=== PATIENT | female | born 1965 | race Caucasian/White ===

== ENCOUNTER → 2018-02-18 13:10 | Outpatient (CLI) | payer OTHER, SELFPAY ==
--- NOTE | 2018-02-18 13:35 | XR_ITS ---
EXAM: XR lumbar spine min 4V HISTORY: ITS.REASON: RT SI JOINT DYSFUNCTION, LBP ORDERING PHYSICIAN: Lamberto Daly MD PATIENT AGE: 52 years COMPARISON: None FINDINGS: Normal alignment. There is minimal lumbar curvature convex left. Small endplate osteophytes are present at L2-L3 and L4. The disc spaces are well-preserved. There is some minimal hypertrophic change of left SI joint inferiorly. No lytic or blastic change. Incidental note made of bilateral renal calculi with multiple small stones involving both kidneys measuring up to 4 mm upper pole on the right and 3 mm in the lower pole on the left pelvic calcifications are present probably related to phleboliths. IMPRESSION: 1. Mild degenerative changes with small osteophytes of the lumbar spine. 2. Mild degenerative change left SI joint. 3. Bilateral nephrolithiasis
--- NOTE | 2018-02-18 13:41 | XR_ITS ---
XR hip RT 2-3V w/pelvis HISTORY: Pain ITS.REASON: SI JOINT DYSFUNTION, LBP ORDERING PHYSICIAN: Lamberto Daly MD PATIENT AGE: 52 years COMPARISON: None FINDINGS: No fracture or dislocation is evident. No significant degenerative change. No lytic or blastic change. Unremarkable soft tissues IMPRESSION: Negative hip
--- NOTE | 2018-02-18 13:41 | XR_ITS ---
XR hip LT 2-3V w/pelvis HISTORY: Hip pain ITS.REASON: SI JOINT DYSFUNTION, LBP ORDERING PHYSICIAN: Lamberto Daly MD PATIENT AGE: 52 years COMPARISON: None FINDINGS: No fracture or dislocation is evident. No significant degenerative change. No lytic or blastic change. Unremarkable soft tissues IMPRESSION: Negative hip
== END ==
PROVIDERS: PCP Internal Medicine Adolescent Medicine; Visit Provider Internal Medicine Adolescent Medicine
DX: M53.3 Sacrococcygeal disorders, not elsewhere classified (principal); M54.5 Low back pain
CPT/HCPCS: 72110; 73502

== ENCOUNTER 2018-02-19 08:53 | Outpatient (POV) | payer OTHER, SELFPAY ==
[2018-02-19 09:30] VITALS: BP 121/72; PULSE 67; RESP 18; TEMP 37.2; O2SAT 96
--- NOTE | 2018-02-19 10:11 | HMH.PMCON ---
Assessment and Plan (1) Sacroiliitis Current visit: Yes Status: Acute Category: Medical Code(s): M46.1 - Sacroiliitis, not elsewhere classified We will plan on a right SI joint injection today. We will follow-up with her in the pain clinic in 2 weeks. HPI - Data of Consult Patient: new to practice Consult date: 02/19/18 Requesting Physician: Khanh Bueno MD Primary Care Provider: Lamberto Daly MD Family Provider: Lamberto Daly MD - Consult Narrative Reason for consult: Right hip pain History of present illness: Ms. Kirkpatrick is a 52 year old female who had sudden onset of right hip pain when getting out of bed. Has difficulty getting up from a seated position. She also has difficulty sitting for long periods of time. Any movement or activity increases her pain. Rest heat and anti-inflammatories decrease her pain. She has not had any physical therapy. She has had a Medrol Dosepak which helped temporarily. Pain score today is a 2 out of 10. She is tender over her right SI joint. Pain does not radiate anywhere. She has no weakness or numbness or any neurological symptoms down her legs. Pain is constant worse when sitting or getting up from a seated position. CC: Khanh Bueno MD [facility] History I have reviewed the patient's past medical history: Yes Medical History: Reports:: Diabetes Mellitus Type 2, Hypertension Denies:: Cancer, Diabetes Mellitus Type 1, MRSA Other Medical History: Reports: Arthritis Other Surgeries: Yes: BSO, Hysterectomy-Partial Amputation: No Fractures: No - *Social History Alcohol Intake: never Occupational Status: employed - Psychiatric History Expresses thoughts of harming self/others: None Suicide Plan Description: No Plan Review of Systems - Review of Systems Review of systems:: pertinent systems reviewed and negative unless documented below - *Musculoskeletal Reports abnormal walking, Reports joint pain, Reports stiffness Meds Allergies Allergy/AdvReac Type Severity Reaction Status Date / Time lisinopril [LISINOPRIL] Allergy Mild Unverified 09/17/17 15:25 nitrofurantoin Allergy Unknown Unverified 09/17/17 15:25 [From Macrobid] sulfamethoxazole Allergy Unknown Unverified 09/17/17 15:25 [From BACTRIM] trimethoprim [From BACTRIM] Allergy Unknown Unverified 09/17/17 15:25 vancomycin [VANCOMYCIN] Allergy Unknown Unverified 09/17/17 15:25 Objective Vital signs: Temp Pulse Resp BP Pulse Ox 99.0 F 67 18 121/72 96 02/19/18 09:30 02/19/18 09:30 02/19/18 09:30 02/19/18 09:30 02/19/18 09:30 - Routine Back/Spine/Pelvis Exam Back/Spine: Present: full ROM Pelvis: Present: buttock tenderness, SI joint tenderness - *Routine Neurological Exam Present: alert, oriented X3, normal reflexes, moving all extremities, normal tone, normal speech Opioid Risk Tool - Opioid Risk Tool-Female Family hx alcohol abuse: N Family hx illegal drugs: N Family hx rx drug abuse: N Personal hx alcohol abuse: N Personal hx illegal drugs: N Personal hx rx drug abuse: N Age: 45+ Hx of sexual abuse: N Mental health issues-ADD,OCD,Bipolar, etc: N Hx of depression: N Female Risk Score: 0
[2018-02-19 10:15] VITALS: BP 133/83; PULSE 61; RESP 18; O2SAT 99
--- NOTE | 2018-02-19 10:15 | HMH.PMPROC ---
- Procedure Date: 02/19/18 Time: 10:15 Anesthesiologist:: Khanh Bueno MD Complications:: None Pre-procedure Diagnosis:: Sacroiliitis Post-procedure Diagnosis:: Same Indications for Procedure:: Ms. Kirkpatrick is a 52 year old female who had sudden onset of right hip pain when getting out of bed. Has difficulty getting up from a seated position. She also has difficulty sitting for long periods of time. Any movement or activity increases her pain. Rest heat and anti-inflammatories decrease her pain. She has not had any physical therapy. She has had a Medrol Dosepak which helped temporarily. Pain score today is a 2 out of 10. She is tender over her right SI joint. Pain does not radiate anywhere. She has no weakness or numbness or any neurological symptoms down her legs. Pain is constant worse when sitting or getting up from a seated position. We will do a right SI joint injection under fluoroscopy today. Procedure Details:: Right SI joint injection under fluoroscopy Informed consent was obtained and the risks and benefits of the procedure was going to the patient. Patient was taken to the procedure room. Patient was placed prone on the procedure table. The right hip was prepped using ChloraPrep. The skin and subcutaneous tissues were anesthetized using lidocaine. I placed a 22-gauge spinal needle into the inferior aspect of the right SI joint. Needle placement was confirmed with dye. After this we injected 5 mL bupivacaine 0.25% and Depo-Medrol 40 mg into the right SI joint. The patient tolerated the procedure well with no complication. Plan and Disposition:: We will follow-up with her in 2 weeks. We will reevaluate her symptoms at that time.
[2018-02-19 10:16] VITALS: PULSE 63; RESP 18; TEMP 36.6; O2SAT 99
[2018-02-19 13:09] VITALS: BP 141/84; PULSE 62; O2SAT 97
== END 2018-02-19 10:24 | disposition home or self-care (01) ==
LOC: SC.PAIN 08:53
PROVIDERS: Family Provider Internal Medicine Adolescent Medicine; PCP Internal Medicine Adolescent Medicine; Visit Provider Anesthesiology
DX: M46.1 Sacroiliitis, not elsewhere classified (principal)
CPT/HCPCS: 99202; J1040; Q9966

== ENCOUNTER → 2018-05-26 14:54 | Outpatient (POV) | payer OTHER, SELFPAY ==
[2018-05-26 15:12] VITALS: BP 121/67; PULSE 73; RESP 18; O2SAT 98; BMI 35.9
--- NOTE | 2018-05-26 15:27 | P.CONS_ITS ---
[facility] Pain Management SOAP Note Subjective:: Patient is a pleasant 53-year-old white female who presents today for follow-up after her right SI joint injection. Patient had 90-100% relief of her symptoms for 3 months. Patient states her pain is starting to come back intermittently. Patient like to have another SI joint injection to help with her pain coming on. Patient rates her pain today a 3 out of 10. ROS General: no recent weight change, no fever, no sleep disturbances Respiratory: no cough, no shortness of air, no recurring pulmonary infections Cardiovascular/Peripheral Vascular: No chest pain, No palpitations, no edema, no shortness of breath. Gastrointestinal: no incontinence, normal bowel movements reported Genitourinary: no incontinence Musculoskeletal: Right SI joint pain Psychiatric: normal mood/ affect Neurological: [denies weakness in extremities], [denies balance issues] Objective:: Physical Exam General: Alert and oriented x3, no acute distress, pleasant and cooperative, [on room air] Lungs: Resps E/U, Symmetrical chest expansion, Eyes: PERRL Musculoskeletal: Flexion and extension of lumbar spine somewhat guarded secondary to pain, deep tendon reflexes normal, strength in upper and lower extremities [5/5], slightly antalgic gait noted, positive Alisa's test on the right side, extreme point tenderness over right SI joint Neurological: speech clear, 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 Patient's tried and failed these along with physical therapy. Patient is continuing to do home stretching exercise program. I will follow-up with the patient after her injection. This note was dictated using voice recognition software and may contain errors or omissions
== END ==
PROVIDERS: Family Provider Internal Medicine Adolescent Medicine; PCP Internal Medicine Adolescent Medicine; Visit Provider Clinical Nurse Specialist Family Health
DX: M46.1 Sacroiliitis, not elsewhere classified (principal)
CPT/HCPCS: 99213

== ENCOUNTER → 2018-12-31 12:24 | Outpatient (CLI) | payer OTHER, SELFPAY ==
--- NOTE | 2018-12-31 12:31 | CT_ITS ---
CT abdomen pelvis wo con INDICATION: Left groin and left flank pain. Gross hematuria. ITS.REASON: HEMATURIA ORDERING PHYSICIAN: Lamberto Daly MD PATIENT AGE: 53 years TECHNIQUE: No oral nor IV contrast Axial images obtained with sagittal and coronal reformats. All CT scans at the facility use one or more dose reduction, viz: automated exposure control, ma/kV adjustment per patient size (including targeted exams where dose is matched to indication, i.e. head), or iterative reconstruction technique. FINDINGS: Lower thorax. No active disease of the lung bases. Abdomen/pelvis. Lack of oral and IV contrast decreases sensitivity Liver. Diffuse fatty changes no focal lesions of significance of the liver Gallbladder. Gallbladder contracted. Bowel wall thickness may reflect lack of distention no biliary ductal dilatation Pancreas unremarkable. Adrenals unremarkable Kidneys. Bilateral Urolithiasis again noted. Numerous calculi are seen throughout both kidneys-similar to previous study. Right kidney. No obstruction right ureter unremarkable. Numerous calculi at the right kidney most of which slightly larger than on 2016. Left kidney 2.5 cm cyst off the lower pole left kidney similar to previous exam. Scattered calculi throughout left kidney On previous study there are 2 small calculi at the lower pole calyx only one is seen here today suggesting interval passage of 100 calculus here. The left ureter appears normal in caliber. There are numerous phleboliths the pelvic basin which can mimic ureteral calculi However on today's study, suspect possible 4 x 3.5 mm stone at the distal most left ureter just above the left UVJ., seen on axial image 107. I would note a similar calcification was seen in this same level 2016.] At that time was felt to be one of 2 distal ureteral calculi I would expect to see ureteral dilatation of this was indeed a significant distal ureteral stone and thus it is difficult to totally exclude a phlebolith here. . If pain persist, this may require follow-up with postcontrast imaging to delineate course of ureter. Urinary bladder is otherwise unremarkable. Hysterectomy noted. No adnexal masses. GI Tract. Moderate stool within the right colon and transverse colon with minimal stool at left colon. Upper normal wall thickness rectosigmoid most likely reflecting lack of distention. Appendix satisfactory.. Terminal ileum normal. Small bowel unremarkable. Stomach satisfactory. Small fat-containing umbilical hernia. Not significant. Osseous structures. No significant findings. IMPRESSION: ------- 1. Bilateral urolithiasis is again observed. With Slight progression on the right kidney more so than left 2. Numerous phleboliths at the pelvic basin. 3. with left flank pain and hematuria I am suspect of a possible 4 X 3.5 mm stone at the distal most left ureter, just above the left UVJ.... However however we do not the left ureteral dilatation would tend to expect from such. . (Thus difficult to exclude a phlebolith mimicking this appearance) No hydronephrosis on the left currently
== END ==
PROVIDERS: PCP Internal Medicine Adolescent Medicine; Visit Provider Internal Medicine Adolescent Medicine
DX: R31.0 Gross hematuria (principal)
CPT/HCPCS: 74176

== ENCOUNTER → 2019-03-30 10:53 | Outpatient (CLI) | payer OTHER, SELFPAY ==
--- NOTE | 2019-03-30 10:56 | XR_ITS ---
XR chest 2V HISTORY: ITS.REASON: RLL PNEUMONIA ORDERING PHYSICIAN: Rei Vance MD PATIENT AGE: 53 years COMPARISON: 05/09/2009 FINDINGS: The cardiomediastinal silhouette and pulmonary vascularity are within normal limits. The lungs are clear without infiltrates, suspicious nodules, or pleural effusions. No acute bony abnormalities. IMPRESSION: Negative chest, no acute finding
== END ==
PROVIDERS: PCP Internal Medicine Adolescent Medicine; Visit Provider Internal Medicine Adolescent Medicine
DX: J18.1 Lobar pneumonia, unspecified organism (principal)
CPT/HCPCS: 71046

== ENCOUNTER → 2019-09-22 08:08 | Outpatient (CLI) | payer OTHER, SELFPAY ==
--- NOTE | 2019-09-22 08:12 | MM_ITS ---
PROCEDURE: MM DIG SCREENING MAMM BI W/CAD Patient Age:54Y CLINICAL INDICATION: SCREENING. No hormones. No new complaints. Noncontributory family history. COMPARISON: DIGMAMMS MAMMOGRAM SCREEN-NURSE PRIVATE DUTY N/C from 11/26/2007 DIGMAMMDX MAMMOGRAM DX-NURSE PRIVATE DUTY N/C from 05/09/2009 [facility] DIGITAL MAMM-SCREEN BILATERAL from 02/14/2012 TECHNIQUE: Standard CC and MLO images were obtained. R2 CAD reviewed. FINDINGS: Minimal to moderate residual fibroglandular elements but there has been progressive fatty change fatty replacement when compared to the available previous studies. CAD computer review highlights no areas of significant concern either Overall lower density breast With significant fatty change and progressive fatty involution evident over several year sequence/is seen on available series of mammograms. . Right breast no new areas of significant concern. Left breast. No new areas of concern. Stable. Small area of nodularity laterally is been present since 2007, 2008. Can be followed safely IMPRESSION: Stable bilateral mammogram No new areas of concern. Bilateral follow-up 1 year recommended BI-RAD Category: 2 Benign Finding(s) FOLLOW-UP: 1YR 1 Year Follow-up the (A letter has been sent to the patient regarding results of the study.) Dictated by: Kaushal Urias MD 09/24/2019 09:03 Electronically signed by Kaushal Urias MD in [place] 09/24/2019 09:03
== END ==
PROVIDERS: PCP Internal Medicine Adolescent Medicine; Visit Provider Internal Medicine Adolescent Medicine
DX: Z12.31 Encounter for screening mammogram for malignant neoplasm of breast (principal)
CPT/HCPCS: 77067

== ENCOUNTER → 2020-04-21 16:10 | Outpatient (CLI) | payer OTHER, SELFPAY ==
[2020-04-23 13:40] LABS: Covid-19 Nasal PCR Sendout Lex Not Detected
== END ==
PROVIDERS: Visit Provider Internal Medicine Adolescent Medicine
DX: Z20.828 Contact with and (suspected) exposure to other viral communicable diseases (principal)
CPT/HCPCS: U0004

== ENCOUNTER → 2020-12-15 07:15 | Outpatient (CLI) | payer OTHER, SELFPAY ==
--- NOTE | 2020-12-15 | CA_ITS ---
APPROVED REPORT Exam: Exercise Treadmill Technologist: Siobhan Rascon, Ht: 5 ft 1 in Wt: 190 lbs BSA: 1.85 m2 HR: 68 bpm BP: 157/90 mmHg Medical History Medications: Ziac,,,,, Synthroid,,,,, WELLBUTRIN,,,,, CeleBREX,,,,, Stress Test Details Test: Josue HR Resting HR: 74 bpm Max Heart Rate (APMHR): 167.186628 bpm Max HR Achieved: 142 bpm Target HR (85% APMHR): 141.736260 bpm % of APMHR: 85.03 Recovery HR: 86 bpm BP Resting BP: 166/89 mmHg Max BP: 196/88 mmHg Recovery BP: 139.0/80.0 mmHg ECG Resting ECG: NSR, low voltage QRS, slow R wave progression Clinical Exercise duration: 07:01 min Highest Stage Achieved: Exercise capacity: 10.1 METs Stress ECG Conclusion Exercised 7:00 on Josue Protocol Max HR: 142 % of PM: 85% Max BP: 196/88 MET's: 10.1 Test stopped due to: SOA, fatigue Symptoms: No CP Arrhythmias/Ectopy: Rare PVC ST-T Changes: Allowing for motion artifact, the ST response to exercise appears w/in normal. However, there is T wave inversion in leads III and aVF in recovery. Conclusion: Probably normal GXT. [employer] images reported separately. Electronically signed by : Cedrick Andres, 12/15/2020 14:25:48
--- NOTE | 2020-12-15 07:29 | NM_ITS ---
APPROVED REPORT Exam: Nuclear Stress Test Indication: chest pain..short of breath..fatigue Patient Location: Outpatient Stress Tech: Siobhan Rascon [place] Tech:GIANCARLO Zavala RT(R)(N) Ht: 5 ft 1 in Wt: 190 lbs Bra Size: 40d68 HR: 68 bpm BP: 157/90 mmHg BSA: 1.85 m2 BMI: 35.8 History: chest pain..short of breath..fatigue Procedure: Patient exercised on Josue protocol 7 minutes and sec, resting heart rate 68 bpm, resting blood pressure 157/90 mmHg, with exercise maximum heart rate achived was 142 bpm which is 85 % of the maximum predicted heart rate and blood pressure was 196/88 mmHg. Patient denied any complaint of chest pain. Patient has good exercise capacity, achieved 10.1 METs of workload on treadmill, the blood pressure response to exercise was Adequate. Electrocardiogram Resting electrocardiogram shows sinus rhythm, with exercise there is less than 1.[address] segment depression noted from the baseline EKG. The EKG portion of the exercise Myoview is negative for ischemia. Cardiac Stress and Resting SPECT Images: Cardiac Stress and Resting SPECT images were obtained using technetium 99m Myoview 32.5 mCi stress and 9.89 mCi at rest. Gated SPECT for analysis of segmental wall motion and calculation of the ejection fraction also done. Prone images were also obtained. Cardiac stress and resting SPECT images show uniform myocardial activity without segmental perfusion abnormality, computer derived ejection fraction is 63% with no regional wall motion abnormality, right ventricle is normal size and contractility. Conclusion: 1. The EKG portion of the exercise Myoview is negative for ischemia, patient has good exercise capacity achieved 10.1 mets of workload on treadmill, the blood pressure response to exercise was adequate, there was no exercise-induced chest discomfort. 2. No scintigraphic evidence of reversible ischemia seen, computer derived ejection fraction 63% with no regional wall motion abnormality, right ventricle is normal size and contractility. 3. Normal exercise Myoview study. Electronically signed by : Cedrick Andres, 12/15/2020 14:28:43
== END ==
PROVIDERS: PCP Internal Medicine Adolescent Medicine; Visit Provider Internal Medicine Adolescent Medicine
DX: R06.00 Dyspnea, unspecified (principal); I10 Essential (primary) hypertension
CPT/HCPCS: 78452; 93017; A9502

== ENCOUNTER → 2020-12-23 13:11 | Outpatient (CLI) | payer OTHER, SELFPAY | PROVIDERS: PCP Internal Medicine Adolescent Medicine; Visit Provider Internal Medicine Adolescent Medicine | DX: G47.33 Obstructive sleep apnea (adult) (pediatric) (principal); R06.83 Snoring; I10 Essential (primary) hypertension; E66.9 Obesity, unspecified | CPT/HCPCS: 95806 ==

== ENCOUNTER → 2021-01-10 11:02 | Outpatient (CLI) | payer OTHER, SELFPAY ==
--- NOTE | 2021-01-10 11:19 | MR_ITS ---
PROCEDURE: MR LUMBAR SPINE WO CON CLINICAL INDICATION: Pt c/o left hip pain with no recent trauma or injury. Pt does have hx of DDD and hyperflexia. Prior L-spine x-ray done 02/18/2018. COMPARISON: No exams were available for comparison TECHNIQUE: Standard multiplanar multiecho sequences are performed without contrast. 3-D MIP and myelographic images are also rendered and reviewed FINDINGS: There is normal alignment. The spinal cord ends at the T12-L1 level. The disc spaces from L1-L4 have an unremarkable appearance. There is minimal asymmetric bulging disc eccentric toward the left at L4-L5 with mild left lateral recess and foraminal narrowing. The disc abuts the L5 nerve root but does not displace the nerve root. L5-S1: Unremarkable. There are small anterior osteophytes at L1-L2 L2-L3 and L3-L4. Mild facet hypertrophy is present at L4-5 and L5-S1. There is a small left renal cyst along the lower pole of the left kidney measuring 2.7 cm. Incidental note made of small hemangiomas at L2 and L3 vertebral body centrally IMPRESSION: 1. Small asymmetric bulging disc eccentric toward the left at L4-5 with mild left-sided foraminal and lateral recess narrowing abutting the L5 nerve root without displacement. 2. No extruded herniated disc. 3. Other mild degenerative changes as described above. Dictated by: Vinicius Patel MD 01/11/2021 12:54 Vinicius Patel MD in [place] 01/11/2021 12:54
== END ==
PROVIDERS: PCP Internal Medicine Adolescent Medicine; Visit Provider Nurse Practitioner Family
DX: M51.37 Other intervertebral disc degeneration, lumbosacral region (principal); M54.10 Radiculopathy, site unspecified; R29.2 Abnormal reflex
CPT/HCPCS: 72148; 76376

== ENCOUNTER → 2021-01-30 13:03 | Outpatient (POV) | payer OTHER, SELFPAY ==
[2021-01-30 13:10] VITALS: BP 141/74; PULSE 85; RESP 18; O2SAT 98; BMI 37.0
--- NOTE | 2021-01-30 13:34 | HMH.PMCON ---
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 Patient is to continue her physical therapy. Patient's tried and failed 6 weeks of medication management. I will follow-up with her after her injection reassess her symptoms at that time. She is not on any anticoagulation therapy. Dr. Bueno has reviewed this note and agrees with this plan of care. This note was dictated using voice recognition software and may contain errors or omissions HPI - Data of Consult Consult date: 01/30/21 Requesting Physician: Kathy Oviedo APRN Primary Care Provider: Cathy Bright APRN - Consult Narrative Reason for consult: Back pain, Left SI joint pain History of present illness: Ms. Kirkpatrick is a 55 year old female who presents today for consultation regards to her ongoing left-sided pain. Patient was seen back in 2018 and had several rounds of SI joint injections. Patient had significant relief initially. Patient comes with a new complaint of pain. Mostly in the left side however it is down her left leg. She has an MRI showing a bulging disc that is abutting the left L5 nerve root. Patient and I discussed epidural injections. She rates her pain today a 3 out of 10. ROS General: no recent weight change, no fever, no sleep disturbances Respiratory: no cough, no shortness of air, no recurring pulmonary infections Cardiovascular/Peripheral Vascular: No chest pain, No palpitations, no edema, no shortness of breath. Gastrointestinal: no new onset incontinence, normal bowel movements reported Genitourinary: no new onset incontinence Musculoskeletal: Back pain, leg pain Psychiatric: normal mood/ affect Neurological: [denies new onset weakness in extremities], [denies new onset balance issues] CC: Kathy Oviedo APRN [facility] History I have reviewed the patient's past medical history: Yes Medical History: Reports:: Diabetes Mellitus Type 2, Hypertension Denies:: Cancer, Diabetes Mellitus Type 1, MRSA, Seizures *Have you ever received a pneumonia vaccine?: Yes *Have you received a flu vaccine this season?: Yes Other Medical History: Reports: Arthritis (LUPUS), Thyroid Disease Other Surgeries: Yes: BSO, Hysterectomy-Partial Amputation: No Fractures: No - *Social History Smoking Status: Never smoker Alcohol Intake: never *Occupational Status:: other Housing: house Household Members: other *Travel in the last 8 weeks: None Family Hx:: Unable to obtain Review of Systems - Review of Systems ROS General: no recent weight change, no fever, no sleep disturbances Respiratory: no cough, no shortness of air, no recurring pulmonary infections Cardiovascular/Peripheral Vascular: No chest pain, No palpitations, no edema, no shortness of breath. Gastrointestinal: no new onset incontinence, normal bowel movements reported Genitourinary: no new onset incontinence Musculoskeletal: Back pain, leg pain Psychiatric: normal mood/ affect Neurological: [denies new onset weakness in extremities], [denies new onset balance issues] Meds Home Medications Medication Instructions Recorded Confirmed Type Celecoxib 200 mg PO BID 01/30/21 01/30/21 History Gabapentin [Gabapentin 100mg Cap] 100 mg PO TID 01/30/21 01/30/21 History Hydrocodone/Acetaminophen 5 mg PO QID 01/30/21 01/30/21 History [Hydrocodone-Acetamin 5-325 mg] Levothyroxine Sodium 150 mcg PO DAILY 01/30/21 01/30/21 History [Levothyroxine 150mcg (0.
== END ==
PROVIDERS: PCP Nurse Practitioner Family; Visit Provider Clinical Nurse Specialist Family Health
DX: M47.896 Other spondylosis, lumbar region (principal); M54.16 Radiculopathy, lumbar region; M46.1 Sacroiliitis, not elsewhere classified
CPT/HCPCS: 99202; G0463

== ENCOUNTER 2021-02-10 10:10 | Day surgery (SDC) | payer OTHER, SELFPAY ==
[2021-02-10 10:24] VITALS: BP 119/53; PULSE 71; RESP 18; TEMP 36.4; O2SAT 98; BMI 36.8
[2021-02-10 10:57] VITALS: BP 130/71; BP 132/74; PULSE 68; PULSE 69; RESP 18; O2SAT 98
--- NOTE | 2021-02-10 11:05 | P.PCN_ITS ---
- Procedure Date: 02/10/21 Time: 11:05 Anesthesiologist:: Khanh Bueno MD Complications:: None Pre-procedure Diagnosis:: Degenerative disc disease of lumbar spine with lumbar radiculopathy symptoms Post-procedure Diagnosis:: Same Indications for Procedure:: This patient is a pleasant 55-year-old white female who we are treating for low back pain and left-sided hip pain. She has had several rounds of SI joint injections with temporary relief. She has a bulging disc at L4-L5 with left leg radiculopathy symptoms. Will do lumbar epidural steroid injection today to help with pain symptoms. Procedure Details:: Lumbar epidural steroid injection under fluoroscopy Informed consent was obtained and the risk and benefits of the procedure was explained to the patient. The patient was taken to the procedure room. The patient was placed prone on the procedure table. The patient was prepped and draped in sterile fashion. C-arm fluoroscopy was used to view the lumbar spine. Skin and subcutaneous tissues were anesthetized using lidocaine. I placed an 18-gauge epidural needle and advanced into the L4-L5 interspace using fluoroscopic guidance and [id number] to air. After confirmation of needle placement in the epidural space with dye I injected 2 mL of lidocaine 1.5% with Depo-Medrol 80 mg. Patient tolerated the procedure well with no compl ications. Plan and Disposition:: We will follow-up with her in 2 weeks. Will reevaluate symptoms at that time.
[2021-02-10 11:10] VITALS: BP 118/58; PULSE 61; RESP 20; O2SAT 98
== END 2021-02-10 11:11 | disposition home or self-care (01) ==
LOC: SC.PAINP 10:11
PROVIDERS: PCP Nurse Practitioner Family; Visit Provider Anesthesiology
DX: M51.16 Intervertebral disc disorders with radiculopathy, lumbar region (principal); I10 Essential (primary) hypertension; E11.9 Type 2 diabetes mellitus without complications; M19.90 Unspecified osteoarthritis, unspecified site; Z88.1 Allergy status to other antibiotic agents; Z88.2 Allergy status to sulfonamides; F41.9 Anxiety disorder, unspecified; F32.9 Major depressive disorder, single episode, unspecified; E07.9 Disorder of thyroid, unspecified
CPT/HCPCS: 62323; J1040; Q9966

== ENCOUNTER → 2021-03-09 08:52 | Outpatient (POV) | payer OTHER, SELFPAY ==
[2021-03-09 09:11] VITALS: BP 142/82; PULSE 67; RESP 18; O2SAT 97; BMI 35.9
--- NOTE | 2021-03-09 09:26 | HMH.PAINSOAP ---
[facility] Pain Management SOAP Note Subjective:: Patient is a 55-year-old white female who presents today for left low back pain and left hip pain. She is having some generalized pain to the right side, however, she says her left low back and left hip are her worst pain at this time. She is having difficulty standing, walking, and sleeping. She is very tearful today. Patient did undergo lumbar epidural steroid injection x3 which gave her no significant relief. She rates her pain a 6 out of 10 today. She is trying to undergo home stretching with limited relief. She has tried and failed physical therapy greater than 6 weeks in the past with no significant relief. She has also tried oral medications with no relief. Patient did discuss possible left SI joint injection at her last visit if this did not give her relief. She would like to proceed with the injection to her left SI. Patient does have tenderness noted over left SI joint and left trochanteric bursa. Review of Systems General: No recent weight changes, no fever, no sleep disturbances Respiratory: No cough, no shortness of air, no recurring pulmonary infections Cardiovascular/peripheral vascular: No chest pain, no palpitations, no edema, no shortness of breath Gastrointestinal: No new onset incontinence, normal bowel movements reported Genitourinary: No new onset incontinence Musculoskeletal: Left low back pain, left buttock pain, left hip pain and left groin pain Psychiatric: Normal mood/affect Neurological: [Denies weakness in extremities], [denies balance issues] Objective:: Physical exam General: Alert and oriented x3, no acute distress, pleasant and cooperative, [on room air] Lungs: Respirations even and unlabored, symmetrical chest expansion Eyes: PERRL Musculoskeletal: Flexion and extension of lumbar spine somewhat guarded secondary to pain, deep tendon reflexes normal, strength in upper and lower extremities [5/5], [abnormal gait noted],positive Alisa's test, positive compression test, positive distraction test Neurological: Speech clear, supervisor rod placing equal, no gross sensory deficit Assessment:: Sacroiliitis left, trochanteric bursitis left Plan:: Patient has tried lumbar epidural steroid injections x3 with no significant relief. Her pain is a 6 out of 10 today. She is continuing to have significant pain to her left low back, left buttock, left hip and groin. She is tender to her left SI and left trochanteric bursa today. She has a positive Alisa's, compression, distraction test today. She is continue with home stretching and has tried physical therapy along with ice and heat therapies with no significant relief. We will order the patient Skelaxin 800 mg 1 tablet p.o. 3 times daily to see if this gives her relief until she can undergo a left SI injection left trochanteric bursa injection. We will see the patient back in the clinic after her left SI injection and left trochanteric bursa injection to reevaluate her symptoms. Risks and benefits of the procedure have been explained to the patient. Patient would like to proceed with the procedure. Risks and benefits of the medication have been explained in detail to the patient. The patient has been advised to consult with his/her primary care provider and pharmacist regarding drug-drug interaction of medications currently prescribed. Patient has been instructed to contact the clinic with any concerns before the next appointment. Dr. Bueno has reviewed this note and agrees with this plan of care. This note was dictated using voice recognition software and make contain errors or omissions. [facility] History I have reviewed the patient's past medical history: Yes Medical History: Reports:: Diabetes Mellitus Type 2, Hypertension Denies:: Cancer, Diabetes Mellitus Type 1, MRSA, Seizures *Have you ever received a pneumonia vaccine?: No *Have you received a flu vaccine this season?: Yes Other Medical History: Reports: Katelyn
== END ==
PROVIDERS: PCP Nurse Practitioner Family; Visit Provider Clinical Nurse Specialist Family Health
DX: M46.1 Sacroiliitis, not elsewhere classified (principal); M70.62 Trochanteric bursitis, left hip
CPT/HCPCS: 99212; G0463

== ENCOUNTER 2021-03-17 09:30 | Day surgery (SDC) | payer OTHER, SELFPAY ==
[2021-03-17 09:52] VITALS: BP 144/69; PULSE 92; RESP 18; TEMP 36.6; O2SAT 98; BMI 35.9
[2021-03-17 10:45] VITALS: BP 148/85; PULSE 92; RESP 18; O2SAT 96
[2021-03-17 10:48] VITALS: BP 149/85; PULSE 95; RESP 20; O2SAT 96
--- NOTE | 2021-03-17 11:12 | P.PCN_ITS ---
- Procedure Date: 03/17/21 Time: 11:12 Anesthesiologist:: Beverly Pham MD Complications:: None Pre-procedure Diagnosis:: Left-sided sacroiliitis, left-sided trochanteric bursitis Post-procedure Diagnosis:: Same Indications for Procedure:: This is a very pleasant 55-year-old female who presents today for left-sided low back pain and left-sided hip pain. She has previously trialed and failed conservative treatment including oral pain medication, injection therapy, and home stretching program. She previously has undergone lumbar epidural steroid injections x3 which gave her very minimal pain relief. The plan for her is to undergo left-sided SI joint injection and left-sided trochanteric bursa injection today. Procedure Details:: Left SI joint injection under fluoroscopy Informed consent was obtained and the risks and benefits of the procedure was explained to the patient. Patient was taken to the procedure room. Patient was placed prone on the procedure table. The left hip was prepped using ChloraPrep. The skin and subcutaneous tissues were anesthetized using lidocaine. I placed a 22-gauge spinal needle into the inferior aspect of the left SI joint. Needle placement was confirmed with dye. After this we injected 5 mL bupivacaine 0.25% and Depo-Medrol 40 mg into the left SI joint. The patient tolerated the procedure well with no complication. Next, the skin and subcutaneous tissues overlying the left trochanteric bursa was anesthetized using lidocaine. I placed a 22-gauge spinal needle under fluoroscopic guidance and advanced until it contacted the left greater trochanter. Needle placement was confirmed with dye. After this we injected 5 mL bupivacaine 0.25% and Depo-Medrol 40 mg. Patient tolerated the procedure wel l with no complications. Plan and Disposition:: We will follow up with the patient in 2 weeks. Will reevaluate pain symptoms at that time. We discussed with her today that she may benefit from bilateral L4- L5 and L5-S1 facet joint/medial branch block injections in the future should continue to have significant low back pain despite these injections. She reports that the pain is worse with bending and twisting. She also has significant pain when getting up from a seated position. Exam reveals tenderness to bilateral lower lumbar facet joints. She also has positive axial loading bilaterally.
[2021-03-17 14:59] VITALS: BP 141/74; PULSE 76; RESP 18; TEMP 36.6; O2SAT 98
== END 2021-03-17 11:05 | disposition home or self-care (01) ==
PROVIDERS: PCP Nurse Practitioner Family; Visit Provider Anesthesiology Pain Medicine
DX: M46.1 Sacroiliitis, not elsewhere classified (principal); M70.62 Trochanteric bursitis, left hip; E07.9 Disorder of thyroid, unspecified; I10 Essential (primary) hypertension; M19.90 Unspecified osteoarthritis, unspecified site; E11.9 Type 2 diabetes mellitus without complications; Z88.1 Allergy status to other antibiotic agents; Z88.8 Allergy status to other drugs, medicaments and biological substances
CPT/HCPCS: 20610; 27096; 77002; G0260; J1030; Q9966

== ENCOUNTER → 2021-04-10 10:59 | Outpatient (POV) | payer OTHER, SELFPAY ==
[2021-04-10 11:24] VITALS: BP 145/76; PULSE 105; RESP 18; O2SAT 99; BMI 35.9
--- NOTE | 2021-04-10 12:56 | HMH.PAINSOAP ---
[facility] Pain Management SOAP Note Subjective:: Patient is a 56-year-old white female who presents today for follow-up after left SI joint injection left trochanteric bursa injection. Patient is being treated for left-sided low back pain and left-sided hip pain. She has tried and failed conservative treatments which include lumbar epidural steroid injection x3 with very minimal relief. She does report that she got up to 3 days of relief with her SI injection at about 70 to 80%. Unfortunately, her pain did return. She has tried physical therapy for more than 6 weeks along with continued stretching. She is also tried anti-inflammatories. Patient says her pain is primarily in her left low back area. She says it radiates into her left hip and to the left outer thigh and left knee. She is not having any paresthesia. She says the only time she gets relief is if she is lying flat. Movement, standing, and walking worsen her pain. Rates her pain an 8 out of 10. Review of Systems General: No recent weight changes, no fever, no sleep disturbances Respiratory: No cough, no shortness of air, no recurring pulmonary infections Cardiovascular/peripheral vascular: No chest pain, no palpitations, no edema, no shortness of breath Gastrointestinal: No new onset incontinence, normal bowel movements reported Genitourinary: No new onset incontinence Musculoskeletal: Low back pain with radiation into left hip, left lateral thigh and left leg stopping at knee Psychiatric: Normal mood/affect Neurological: [Denies weakness in extremities], [denies balance issues] Objective:: Physical exam General: Alert and oriented x3, no acute distress, pleasant and cooperative, [on room air] Lungs: Respirations even and unlabored, symmetrical chest expansion Eyes: PERRL Musculoskeletal: Flexion and extension of lumbar spine somewhat guarded secondary to pain, deep tendon reflexes normal, strength in upper and lower extremities [5/5], [abnormal gait noted], positive Alisa's test, positive compression test, positive distraction test Neurological: Speech clear, photocomposition keyboard operator equal, no gross sensory deficit Assessment:: Sacroiliitis left, Plan:: Patient I discussed her symptoms in detail. We did discuss medial branch block/facet joint injections. Dr. Pham did advise the patient if she did not get significant relief with the SI injections, medial branch block/facet joint injections may be an option for her. Patient reports that she did get significant relief for 3 days. She would like to try a repeat injection to the left SI joint. She is tender over her left SI joint with positive Alisa's, compression, distraction test today. We will also order the patient Zanaflex 4 mg 1 tablet p.o. twice daily. She has tried this in the past which has given her some relief. We will also order the patient compounding cream to apply topically to the area. We will see the patient back after her left SI injection for reevaluation of symptoms. The patient is managed with [place] 5 mg 1 tablet p.o. [address] Rei Vance. Risks and benefits of the procedure have been explained to the patient. Patient would like to proceed with the procedure. Possible side effects of corticosteroids have been discussed with the patient. Patient has been instructed to contact the clinic with any concerns before the next appointment. Dr. Bueno has reviewed this note and agrees with this plan of care. This note was dictated using voice recognition software and make contain errors or omissions. [facility] History I have reviewed the patient's past medical history: Yes Medical History: Reports:: Hypertension Denies:: Cancer, Diabetes Mellitus Type 1, Diabetes Mellitus Type 2, MRSA, Seizures *Have you ever received a pneumonia vaccine?: No *Have you received a flu vaccine this season?: No Other Medical History: Reports: Arthritis (LUPUS), Thyroid Disease Other Surgeries: Yes: BSO, Hysterectomy-[place]
== END ==
PROVIDERS: PCP Nurse Practitioner Family; Visit Provider Clinical Nurse Specialist Family Health
DX: M46.1 Sacroiliitis, not elsewhere classified (principal)
CPT/HCPCS: 99212; G0463

== ENCOUNTER → 2021-04-14 08:58 | Outpatient (CLI) | payer OTHER, SELFPAY ==
[2021-04-14 09:11] LABS: Alanine Aminotransferase 43 U/L (12-78); Albumin Level 4.2 g/dl (3.5-5.0); Albumin/Globulin Ratio 1.6 (1.1-1.8); Alkaline Phosphatase 116 U/L (38-126); Anion Gap 16.7 mEq/L (5-15); Aspartate Amino Transferase 63 U/L (14-36); Basophils # 0.1 K/mm3 (0-0.2); Basophils % 0.7 % (0.1-2.0); Bilirubin,Total 0.6 mg/dl (0.2-1.3); Blood Urea Nitrogen 18 mg/dl (7-17); Carbon Dioxide 22 mmol/L (22.0-30.0); Chloride 109 mmol/L (98-107); Eosinophils # 0.2 K/mm3 (0.0-0.4); Eosinophils % 1.8 % (0.1-12.0); Estimated Glomerular Filt Rate 75 ml/min (>60); GFR (African American) 90 ML/MIN (>60); Globulin 2.7 g/dL (1.3-3.2); Glucose 93 mg/dl (74-100); Hematocrit 40.7 % (37.0-47.0); Hemoglobin 12.6 g/dL (12.2-16.2); Lymphocytes % 19.2 % (10-50); Mean Corpuscular HGB Conc 30.9 g/dL (31.8-35.4); Mean Corpuscular Hemoglobin 28.1 pg (27.0-31.2); Monocytes # 0.3 K/mm3 (0.1-1.0); Monocytes % 3.2 % (1.7-9.3); Neutrophils % 75.1 % (37.0-80.0); Platelet Count 349 K/mm3 (142-424); Potassium 4.7 mmoL/L (3.5-5.1); Red Blood Count 4.48 M/mm3 (4.20-5.40); Red Cell Distribution Width 16.8 % (11.5-17.5); Sodium 143 mmol/L (136-145); Total Protein,Serum 6.9 g/dl (6.3-8.2); White Blood Count 10.6 K/mm3 (4.8-10.8)
[2021-04-14 09:27] LABS: Hemoglobin A1C 6.1 % (4.0-6.0)
[2021-04-14 09:42] LABS: Thyroid Stimulating Hormone 3.56 uIU/mL (0.465-4.68)
== END ==
PROVIDERS: Visit Provider Internal Medicine Adolescent Medicine
DX: I10 Essential (primary) hypertension (principal); E03.9 Hypothyroidism, unspecified; E11.9 Type 2 diabetes mellitus without complications
CPT/HCPCS: 80053; 83036; 84443; 85025

== ENCOUNTER 2021-04-21 13:07 | Day surgery (SDC) | payer OTHER, SELFPAY ==
[2021-04-21 13:33] VITALS: BP 151/88; PULSE 94; RESP 18; TEMP 36.4; O2SAT 97; BMI 35.9
[2021-04-21 14:00] VITALS: BP 150/82; PULSE 97; RESP 18; O2SAT 97
[2021-04-21 14:05] VITALS: BP 158/73; PULSE 90; RESP 18; O2SAT 97
--- NOTE | 2021-04-21 14:09 | HMH.PMPROC ---
- Procedure Date: 04/21/21 Time: 14:09 Anesthesiologist:: Beverly Pham MD Complications:: None Pre-procedure Diagnosis:: Left-sided sacroiliitis, left-sided chronic hip pain Post-procedure Diagnosis:: Same Indications for Procedure:: This patient is a very pleasant 56-year-old white female who presents today with chronic left-sided low back and hip pain related to the above diagnosis. She has recently undergone a left-sided SI joint injection and a left-sided trochanteric bursa injection but she reports she saved 70 to 80% pain relief for only 3 days. Ports that she has previously undergone SI joint injections on the left side in the past with very short-term pain relief as well. She reports the pain has since returned and would like a repeat left-sided SI joint injection. The plan for today is for the patient to undergo a repeat left-sided SI joint injection under fluoroscopy. Procedure Details:: Left SI joint injection under fluoroscopy Informed consent was obtained and the risks and benefits of the procedure was explained to the patient. Patient was taken to the procedure room. Patient was placed prone on the procedure table. The left hip was prepped using ChloraPrep. The skin and subcutaneous tissues were anesthetized using lidocaine. I placed a 22-gauge spinal needle into the inferior aspect of the left SI joint. Needle placement was confirmed with dye. After this we injected 5 mL bupivacaine 0.25% and Depo-Medrol 40 mg into the left SI joint. The patient tolerated the procedure well with no complication. Plan and Disposition:: We will follow-up with this patient in 2 weeks. Will reevaluate pain symptoms at that time. I discussed with the patient should she continue to receive only short-term pain relief with these injections she may benefit from SI joint stabilization procedure on the left side in the future. I gave her a brochure on the corner lock procedure today. We will follow-up at the next visit.
[2021-04-21 14:15] VITALS: BP 154/71; PULSE 94; RESP 18; O2SAT 97
== END 2021-04-21 14:16 | disposition home or self-care (01) ==
LOC: SC.PAINP 13:08
PROVIDERS: PCP Nurse Practitioner Family; Visit Provider Anesthesiology Pain Medicine
DX: M46.1 Sacroiliitis, not elsewhere classified (principal); G89.29 Other chronic pain
CPT/HCPCS: 27096; 76000; G0260; J1040; Q9966

== ENCOUNTER → 2021-05-25 11:33 | Outpatient (POV) | payer OTHER, SELFPAY ==
[2021-05-25 11:39] VITALS: BP 143/84; PULSE 67; RESP 18; O2SAT 97; BMI 35.9
--- NOTE | 2021-05-25 12:03 | HMH.PAINSOAP ---
[facility] Pain Management SOAP Note Subjective:: Patient is a 56-year-old white female who presents today for follow-up. Patient has been treated for left-sided sacroiliitis. She does have chronic low back pain on the left side with radiation into her left hip and left groin. She has undergone a left SI joint injection in the past along with a left trochanteric bursa injection which gave her 70 to 80% relief for approximately 5 days. The patient says that she was much more functional during the 5 days. She has had SI injection on multiple occasions and does get relief, however, only short-term. She is also tried other injective therapy which did not give her significant relief in comparison to the left SI injections. She does rate her pain a 6 out of 10 today. She is notably in pain while discussing her symptoms today. She is repositioning often in the chair. She has difficulty sitting. She also has difficulty standing and walking due to her pain. Her pain is in the left low back area, left outer thigh area and radiates to the left knee. She has tried oral medications of gabapentin as well as [place] which is prescribed by Dr. Vance. We have also given the patient compounding cream. The patient has not gotten any long-term relief. She has discussed the corner lock procedure with both her primary care provider, Dr. Pham, and myself. Patient says she is exhausted with doing injective therapy only to get short-term relief. She would like to discuss the corner lock procedure. Review of Systems General: No recent weight changes, no fever, no sleep disturbances Respiratory: No cough, no shortness of air, no recurring pulmonary infections Cardiovascular/peripheral vascular: No chest pain, no palpitations, no edema, no shortness of breath Gastrointestinal: No new onset incontinence, normal bowel movements reported Genitourinary: No new onset incontinence Musculoskeletal: Left low back pain with radiation into left buttock left hip left outer leg stopping at knee Psychiatric: [Normal mood/affect] Neurological: [Denies weakness in extremities], [denies balance issues] Objective:: Physical exam General: Alert and oriented x3, no acute distress, pleasant and cooperative, [on room air] Lungs: Respirations even and unlabored, symmetrical chest expansion Eyes: PERRL Musculoskeletal: Flexion and extension of lumbar [spine] somewhat guarded secondary to pain, strength in upper and lower extremities [5/5], [antalgic gait noted], positive Alisa's test, positive distraction test, positive compression test left side Neurological: Speech clear, [geology associate equal], no gross sensory deficit Assessment:: Sacroiliitis left, low back pain Plan:: Patient has undergone injective therapy to her left SI joint. She has had multiple injections to this area. She gets 70 to 80% relief for 5 days at most. Her pain does return. She has tried anti-inflammatories, home stretching, physical therapy for greater than 6 weeks. Patient's pain returns each time. She is currently on [place] prescribed by Dr. Vance. She also takes gabapentin and is prescribed Zanaflex by our clinic as well as compounding cream. She is interested in corner lock procedure. We did discuss the procedure in detail today. She would like to proceed. The patient is not on any anticoagulation therapy. She does not need refills on her Zanaflex or gabapentin today. We will schedule her for a left SI stabilization procedure. We will get x-ray of her pelvis and bilateral SI joints prior to the procedure. We will see her back after her left SI stabilization for reevaluation of symptoms. Patient is not on any anticoagulation therapy. Risks and benefits of the procedure have been explained to the patient. Patient would like to proceed with the procedure. Patient has been instructed to contact the clinic with any concerns before the next appointment. Dr. Bueno has reviewed this note and agrees
--- NOTE | 2021-05-25 12:15 | XR_ITS ---
PROCEDURE: XR SACROILIAC JOINT BI MIN 3V CLINICAL INDICATION: HIP,BACK PAIN COMPARISON: No exams were available for comparison FINDINGS: The right posterior oblique image is not performed. AP and left posterior oblique views demonstrate no obvious fracture or dislocation. There are mild osteoarthritic changes the left SI joint with mild sclerosis and minimal osteophyte formation. No evidence of sacroiliac fusion. No lytic or blastic change apparent. 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 Dictated by: Vinicius Patel MD 05/30/2021 08:37 Vinicius Patel MD in [place] 05/30/2021 08:37
--- NOTE | 2021-05-25 12:15 | XR_ITS ---
PROCEDURE: XR PELVIS 1-2V CLINICAL INDICATION: HIP,BACK PAIN COMPARISON: CR HIPCMRT XR hip RT 2-3V w/pelvis from 02/18/2018 TECHNIQUE: XR Pelvis AP View FINDINGS: No fracture or dislocation is evident. No significant degenerative change. No lytic or blastic change. IMPRESSION: No acute findings. Dictated by: Vinicius Patel MD 05/25/2021 13:28 Vinicius Patel MD in [place] 05/25/2021 13:28
== END ==
PROVIDERS: PCP Nurse Practitioner Family; Visit Provider Clinical Nurse Specialist Family Health
DX: M46.1 Sacroiliitis, not elsewhere classified (principal); M25.559 Pain in unspecified hip
CPT/HCPCS: 72170; 72202; 99212; G0463

== ENCOUNTER → 2021-06-19 11:48 | Outpatient (CLI) | payer OTHER, SELFPAY ==
[2021-06-19 12:17] LABS: Basophils # 0.1 K/mm3 (0-0.2); Basophils % 0.5 % (0.1-2.0); Eosinophils # 0.3 K/mm3 (0.0-0.4); Eosinophils % 3.6 % (0.1-12.0); Hematocrit 40.8 % (37.0-47.0); Hemoglobin 12.8 g/dL (12.2-16.2); Lymphocytes # 1.9 K/mm3 (0.7-4.5); Lymphocytes % 20.1 % (10-50); Mean Corpuscular HGB Conc 31.4 g/dL (31.8-35.4); Mean Corpuscular Hemoglobin 28.7 pg (27.0-31.2); Mean Corpuscular Volume 91.3 fl (81-99); Mean Platelet Volume 6.8 fl (7.4-10.4); Monocytes # 0.3 K/mm3 (0.1-1.0); Monocytes % 2.8 % (1.7-9.3); Neutrophils # 6.9 K/mm3 (1.8-7.8); Platelet Count 378 K/mm3 (142-424); Red Blood Count 4.47 M/mm3 (4.20-5.40); Red Cell Distribution Width 14.6 % (11.5-17.5); White Blood Count 9.5 K/mm3 (4.8-10.8)
[2021-06-19 15:56] LABS: Chloride 108 mmol/L (98-107); Sodium 141 mmol/L (136-145)
[2021-06-19 15:57] LABS: Potassium 5.2 mmoL/L (3.5-5.1)
[2021-06-19 15:59] LABS: Blood Urea Nitrogen 17 mg/dl (7-17); Estimated Glomerular Filt Rate 65 ml/min (>60); GFR (African American) 79 ML/MIN (>60)
[2021-06-19 16:00] LABS: Anion Gap 16.2 mEq/L (5-15); Calcium 8.9 mg/dl (8.4-10.2); Carbon Dioxide 22 mmol/L (22.0-30.0); Glucose 178 mg/dl (74-100)
== END ==
PROVIDERS: Visit Provider Anesthesiology
DX: Z01.812 Encounter for preprocedural laboratory examination (principal); Z20.822 Contact with and (suspected) exposure to COVID-19; U07.1 COVID-19; M53.3 Sacrococcygeal disorders, not elsewhere classified
CPT/HCPCS: 36415; 80048; 85025; C9803; U0003; U0005

== ENCOUNTER 2021-07-21 09:47 | Day surgery (SDC) | payer OTHER, SELFPAY ==
[2021-06-19 14:32] VITALS: BMI 37.8
[2021-07-17 12:57] VITALS: BMI 36.8
[2021-07-21] VITALS (10 sets, daily range): BP systolic 127–166; BP diastolic 76–97; PULSE 86–101; RESP 14–18; TEMP 36.1–36.8; O2SAT 91–98
--- NOTE | 2021-07-21 12:44 | HMH.ANESCL ---
[facility] Anesthesia Checklist - Patient Identification Patient Identification: Arm Band - Structural Data Admitted From: Home Planned Operative Procedure/s: SC joint fusion Consent for Planned Operative Procedure(s) Verified: Yes - NPO Status Verified Time NPO: 00:00 - Additional verifications Anesthesia Reactions: No Hx Blood Transfusions: No Blood Transfusion Reaction: No - Airway Assessment C-Spine Mobility Assessed: Yes TMJ Mobility Assessed: Yes Dentition: Good Dentition - Neurological Assessment Level of Consciousness: Awake Hx Seizures: No Numbness or tingling in extremities: No - Anesthesia Plan Anesthesia Risk discussed: Yes Anesthesia Plan: Verified ASA Class: III Anesthesia Type: General [facility] History I have reviewed the patient's past medical history: Yes Medical History: Reports:: Diabetes Mellitus Type 2, Gastroesophageal Reflux Disease(GERD), Hypertension, MRSA Denies:: Cancer, Diabetes Mellitus Type 1, Internal Pacemaker, Seizures *Have you ever received a pneumonia vaccine?: Yes *Have you received a flu vaccine this season?: No Other Medical History: Reports: Arthritis (LUPUS), Thyroid Disease. Denies: Blood Transfusion Reaction Anesthesia experience/problems:: None Other Surgeries: Yes: BSO, Hysterectomy-Total, Hysterectomy-Partial. No: Pacemaker Amputation: No Fractures: No - *Social History Last grade of school completed: Advanced degree Smoking Status: Never smoker Alcohol Intake: never Substance Use Type: denies use *Occupational Status:: unemployed Housing: house Household Members: spouse *Travel in the last 8 weeks: None Family Hx:: Cancer
--- NOTE | 2021-07-21 14:28 | P.OP_ITS ---
Date of procedure: 07/21/21 Pre-op Diagnosis:: sacroillitis Post-op Diagnosis:: Same Procedure performed:: Left SI joint stabilization Surgeon:: Khanh Bueno MD CLINICAL ADMINISTRATIVE COORDINATOR:: Sarian Mendoza Anesthesia: GETA Estimated blood loss (mL): 10 Clinical Note:: Patient is a pleasant 56-year-old white female who we have been treating for chronic sacroiliitis. She has chronic left SI joint pain. She gets 80 to 90% relief with injections however is not long-lasting. We will do a left SI joint stabilization with Cornerloc today. Operative findings:: None Operative note:: Informed consent was obtained and the risk and benefits of the procedure was explained to the patient. Patient was taken to the operating room placed prone on the procedure table. Patient was prepped and draped in sterile fashion. A lateral view of the sacrum with C-arm was taken to make sure it was out of anteversion. We then did an oblique view of the left sacroiliac joint. We lined up the anterior and posterior sides of the joint to achieve a [place] . A line was drawn on the skin with the SI joint. The superior and inferior aspect of the joint were anesthetized using lidocaine. The superior and inferior aspect of the joint were marked off. 1 cm medial and 1 cm superiorly into the upper quadrant and 1 cm medial and 1 cm distal a 1 1/2 cm longitudinal incisions were made through the skin and subcutaneous tissues. Guidepins were then placed superior and inferior at a 90 degree angle to each other under C-arm guidance through the incision was made into the superior third and inferior third of the SI joint. Lateral C-arm view was then taken to check the depth of the pins into the SI joint. On the lateral view the joint finder was placed over the guidepin into the appropriate position. The working cannula retractor was then placed over the joint finder into the SI joint into the appropriate position and depth. The joint finder and guidepin were removed. The SI joint was drilled to remove cartilage and to get into the subchondral bone of the sacrum and ilium. The broach was then used to prepare a triangular groove into both the sacrum and ilium for insertion of stabilization grafts. A collagen spine was then placed into the prepared space and the stabilization graft was placed. This was done both superiorly inferiorly into the SI joint. The cannulated retractor was removed. The incisions were then closed with 2-0 Vicryl followed by kenyetta. Dressings were placed and the patient was taken recovery in stable condition. Patient tolerated the procedure well with no complications. Plan and disposition we will follow-up with this patient in 1 week for wound check. We will follow-up in 2 weeks for staple removal. If she has any problems or questions she is to call us back in the pain clinic. Condition: stable Disposition: PACU Complications:: None
--- NOTE | 2021-07-21 16:34 | HMH.ANESI ---
[facility] Anesthesia Record Part I Intake, IV Amount: 1,300 Estimated blood loss (mL): 5 Urine output (mL): 0 Blood Pressure: 152/79 SaO2: 97 Pulse Rate: 101 Respiratory Rate: 16 Temperature: 97.6 F Patient is:: Awake Stable to PACU at:: 14:38
[2021-07-24 08:36] VITALS: BP 130/76; PULSE 88; TEMP 36.7
--- NOTE | 2021-07-24 08:36 | P.PN_ITS ---
[facility] Anesthesia Record Part II Discharge Time: 15:08 Destination: Surgical Day Care (OP Surgery) PACU nurse assessment reviewed?: Yes Patient Condition:: Good Anesthesia Complications:: None Swallowing reflex intact?: Yes Cyanosis?: No Blood Pressure: 130/76 Pulse Rate: 88 Temperature: 98.1 F Mental Status: Alert & Oriented Pain level:: 3 Nausea and/or vomitting:: None Intake, IV Amount: 0
== END 2021-07-21 16:00 | disposition home or self-care (01) ==
LOC: OR 09:48
PROVIDERS: PCP Nurse Practitioner Family; Visit Provider Anesthesiology
PROC: (CPT 27279; principal; 2021-07-21 11:30)
DX: M46.1 Sacroiliitis, not elsewhere classified (principal); E11.9 Type 2 diabetes mellitus without complications; K21.9 Gastro-esophageal reflux disease without esophagitis; I10 Essential (primary) hypertension; E07.9 Disorder of thyroid, unspecified; Z86.14 Personal history of Methicillin resistant Staphylococcus aureus infection; Z80.9 Family history of malignant neoplasm, unspecified; Z88.1 Allergy status to other antibiotic agents; Z79.899 Other long term (current) drug therapy
CPT/HCPCS: 27279; 96374; C1713; J0330

== ENCOUNTER → 2021-08-07 09:51 | Outpatient (POV) | payer OTHER, SELFPAY ==
--- NOTE | 2021-08-07 10:27 | HMH.PAINSOAP ---
[facility] Pain Management SOAP Note Subjective:: Patient is a 56-year-old white female who presents today for follow-up. Patient recently underwent a left SI stabilization procedure on 07/21/2021. She was getting frequent SI injections and was getting significant relief up to 80 to 90% with the injections, but pain did return. She did complete a round of conservative therapies for greater than 6 weeks with limited relief. Patient reports her pain to be a 2 out of 10 today to the left side. She is getting excellent relief. She is able to stand walk and move much better since the procedure. She does have chronic sacroiliitis to the right side as well. At this time, the patient says that she is doing well overall. She is here today for staple removal. Review of Systems General: No recent weight changes, no fever, no sleep disturbances Respiratory: No cough, no shortness of air, no recurring pulmonary infections Cardiovascular/peripheral vascular: No chest pain, no palpitations, no edema, no shortness of breath Gastrointestinal: No new onset incontinence, normal bowel movements reported Genitourinary: No new onset incontinence Musculoskeletal: Right low back pain, right buttock pain worse with standing and walking, incisional pain left buttock area Psychiatric: [Normal mood/affect] Neurological: [Denies weakness in extremities], [denies balance issues] Objective:: Physical exam General: Alert and oriented x3, no acute distress, pleasant and cooperative Lungs: Respirations even and unlabored, symmetrical chest expansion Eyes: PERRL Musculoskeletal: Flexion and extension of lumbar [spine] somewhat guarded secondary to pain, [antalgic gait noted], positive right side Devin's test, positive right side compression test, positive right side distraction test, positive right side Alisa's test Neurological: Speech clear, no gross sensory deficit Skin: Incision well approximated, no redness, no drainage, no edema to site. Mary Lou removed. Assessment:: Sacroiliitis bilateral Plan:: Patient is doing very well since her SI stabilization on the left side. Sutures were removed today. Incision is well approximated, no redness, no drainage, no edema to site. We will follow-up with her in 2 weeks for reevaluation. In the future, the patient would like to undergo a right SI stabilization procedure as well. Patient has been instructed to contact the clinic with any concerns before the next appointment. Dr. Bueno has reviewed this note and agrees with this plan of care. This note was dictated using voice recognition software and make contain errors or omissions. [facility] History I have reviewed the patient's past medical history: Yes Medical History: Reports:: Diabetes Mellitus Type 2, Gastroesophageal Reflux Disease(GERD), Hypertension, MRSA Denies:: Cancer, Diabetes Mellitus Type 1, Internal Pacemaker, Seizures *Have you ever received a pneumonia vaccine?: Yes *Have you received a flu vaccine this season?: No Other Medical History: Reports: Arthritis (LUPUS), Thyroid Disease. Denies: Blood Transfusion Reaction Other Surgeries: Yes: BSO, Hysterectomy-Total, Hysterectomy-Partial. No: Pacemaker Amputation: No Fractures: No - *Social History Smoking Status: Never smoker Alcohol Intake: never Substance Use Type: denies use *Occupational Status:: unemployed Housing: house Household Members: spouse *Travel in the last 8 weeks: None Family Hx:: Cancer
[2021-08-07 10:40] VITALS: BP 145/78; PULSE 80; RESP 18; O2SAT 98; BMI 38.0
== END ==
PROVIDERS: Visit Provider Clinical Nurse Specialist Family Health
DX: M46.1 Sacroiliitis, not elsewhere classified (principal)
CPT/HCPCS: 99212; G0463

== ENCOUNTER → 2021-08-14 18:48 | Outpatient (CLI) | payer OTHER, SELFPAY ==
[2021-08-14 19:08] LABS: Hemoglobin A1C 6.2 % (4.0-6.0)
[2021-08-15 11:50] LABS: Alanine Aminotransferase 37 U/L (12-78); Albumin Level 3.9 g/dl (3.5-5.0); Albumin/Globulin Ratio 1.5 (1.1-1.8); Alkaline Phosphatase 105 U/L (38-126); Anion Gap 12.7 mEq/L (5-15); Aspartate Amino Transferase 42 U/L (14-36); Bilirubin,Total 0.3 mg/dl (0.2-1.3); Blood Urea Nitrogen 13 mg/dl (7-17); Calcium 9.1 mg/dl (8.4-10.2); Carbon Dioxide 24 mmol/L (22.0-30.0); Chloride 109 mmol/L (98-107); Estimated Glomerular Filt Rate 87 ml/min (>60); GFR (African American) 106 ML/MIN (>60); Globulin 2.6 g/dL (1.3-3.2); Glucose 74 mg/dl (74-100); Potassium 4.7 mmoL/L (3.5-5.1); Sodium 141 mmol/L (136-145); Total Protein,Serum 6.5 g/dl (6.3-8.2)
== END ==
PROVIDERS: Internal Medicine Adolescent Medicine; Visit Provider Internal Medicine Adolescent Medicine
DX: E11.9 Type 2 diabetes mellitus without complications (principal); M05.741 Rheumatoid arthritis with rheumatoid factor of right hand without organ or systems involvement; Z79.84 Long term (current) use of oral hypoglycemic drugs
CPT/HCPCS: 80053; 83036

== ENCOUNTER → 2021-08-29 09:52 | Outpatient (POV) | payer OTHER, SELFPAY ==
[2021-08-29 10:01] VITALS: BP 158/91; PULSE 81; RESP 20; TEMP 36.7; O2SAT 97; BMI 37.8
--- NOTE | 2021-08-29 10:26 | P.CONS_ITS ---
[facility] Pain Management SOAP Note Subjective:: Patient is a 56-year-old white female who presents today for follow-up after core lock procedure. She did have the procedure performed on 07/21/2021. Patient says she is doing well overall. She is still having some occasional bilateral hip pain as well as difficulty sleeping on her left side. She has soreness to the area. Otherwise, she is much more functional and active since having the procedure. She says she is very happy with results. Today, she rates her pain a 5 out of 10. Review of Systems General: No recent weight changes, no fever, no sleep disturbances Respiratory: No cough, no shortness of air, no recurring pulmonary infections Cardiovascular/peripheral vascular: No chest pain, no palpitations, no edema, no shortness of breath Gastrointestinal: No new onset incontinence, normal bowel movements reported Genitourinary: No new onset incontinence Musculoskeletal: Bilateral hip pain soreness to left hip when lying on left side Psychiatric: [Normal mood/affect] Neurological: [Denies weakness in extremities], [denies balance issues] Objective:: Physical exam General: Alert and oriented x3, no acute distress, pleasant and cooperative Lungs: Respirations even and unlabored, symmetrical chest expansion Eyes: PERRL Musculoskeletal: Flexion and extension of lumbar [spine] somewhat guarded secondary to pain, [antalgic gait noted] Neurological: Speech clear, no gross sensory deficit Assessment:: Sacroiliitis left, bilateral hip pain Plan:: Patient is doing well overall. We will plan to follow-up with her in 3 months for further evaluation of symptoms. If her pain does return or change in symptoms, she can contact the clinic. Patient has been instructed to contact the clinic with any concerns before the next appointment. Dr. Bueno has reviewed this note and agrees with this plan of care. This note was dictated using voice recognition software and make contain errors or omissions. [facility] History I have reviewed the patient's past medical history: Yes Medical History: Reports:: Diabetes Mellitus Type 2, Gastroesophageal Reflux Disease(GERD), Hypertension, MRSA Denies:: Cancer, Diabetes Mellitus Type 1, Internal Pacemaker, Seizures *Have you ever received a pneumonia vaccine?: Yes *Have you received a flu vaccine this season?: Yes Other Medical History: Reports: Arthritis (LUPUS), Thyroid Disease. Denies: Blood Transfusion Reaction Other Surgeries: Yes: BSO, Hysterectomy-Total, Hysterectomy-Partial. No: Pacemaker Amputation: No Fractures: No - *Social History Smoking Status: Never smoker Alcohol Intake: never Substance Use Type: denies use *Occupational Status:: other Housing: house Household Members: spouse *Travel in the last 8 weeks: None Family Hx:: Cancer
== END ==
PROVIDERS: Visit Provider Clinical Nurse Specialist Family Health
DX: M46.1 Sacroiliitis, not elsewhere classified (principal)
CPT/HCPCS: 99212; G0463

== ENCOUNTER 2021-10-27 12:25 | Outpatient (CLI) | payer OTHER, SELFPAY ==
--- NOTE | 2021-10-27 12:39 | XR_ITS ---
FINAL REPORT CLINICAL HISTORY: COVID OUTPATIENT FINDINGS: SINGLE VIEW CHEST The heart is normal in size. The mediastinum is unremarkable. The lungs are clear. There is no pneumothorax. IMPRESSION: No acute cardiopulmonary process. Reviewed, Interpreted and Dictated by Armand Hill MD Transcribed by Sonya Godwin Authenticated by Armand Hill MD on 10/27/2021 01:42:31 PM [facility]
[2021-10-27 13:07] LABS: Adenovirus,PCR Not Detected (NotDetected); Bordetella Pertussis Not Detected (NotDetected); Chlamydophila Pneumoniae, PCR Not Detected (NotDetected); Coronavirus 19, PCR Not Detected (NotDetected); Coronavirus 229E Not Detected (NotDetected); Coronavirus NL63 Not Detected (NotDetected); Coronavirus OC43 Not Detected (NotDetected); Coronovirus HKU1,PCR Not Detected (NotDetected); Human Metapneumovirus Not Detected (NotDetected); Influenza A, PCR Not Detected (NotDetected); Influenza AH1, 2009 Not Detected (NotDetected); Influenza AH1, PCR Not Detected (NotDetected); Influenza AH3,PCR Not Detected (NotDetected); Influenza B, PCR Not Detected (NotDetected); Mycoplasma Pneumoniae, PCR Not Detected (NotDetected); Parainfluenza 1, PCR Not Detected (NotDetected); Parainfluenza 2, PCR Not Detected (NotDetected); Parainfluenza 3, PCR Not Detected (NotDetected); Parainfluenza 4, PCR Not Detected (NotDetected); Respiratory Syncytial Virus Not Detected (NotDetected); Rhinovirus/Enterovirus Not Detected (NotDetected)
[2021-10-27 13:14] LABS: Basophils # 0.1 K/mm3 (0-0.2); Basophils % 1.2 % (0.1-2.0); Eosinophils % 0.6 % (0.1-12.0); Hematocrit 44.4 % (37.0-47.0); Hemoglobin 14.1 g/dL (12.2-16.2); Lymphocytes # 1.9 K/mm3 (0.7-4.5); Mean Corpuscular HGB Conc 31.8 g/dL (31.8-35.4); Mean Corpuscular Hemoglobin 28.3 pg (27.0-31.2); Mean Corpuscular Volume 88.8 fl (81-99); Mean Platelet Volume 7.1 fl (7.4-10.4); Monocytes # 0.3 K/mm3 (0.1-1.0); Monocytes % 4.6 % (1.7-9.3); Neutrophils # 3.8 K/mm3 (1.8-7.8); Neutrophils % 62.7 % (37.0-80.0); Platelet Count 305 K/mm3 (142-424); Red Cell Distribution Width 16.4 % (11.5-17.5)
[2021-10-27 13:55] LABS: Chloride 106 mmol/L (98-107); Potassium 3.9 mmoL/L (3.5-5.1); Sodium 139 mmol/L (136-145)
[2021-10-27 13:57] LABS: Alanine Aminotransferase 34 U/L (12-78); Aspartate Amino Transferase 46 U/L (14-36); Blood Urea Nitrogen 10 mg/dl (7-17); Estimated Glomerular Filt Rate 75 ml/min (>60); GFR (African American) 90 ML/MIN (>60)
[2021-10-27 13:58] LABS: Albumin Level 4.1 g/dl (3.5-5.0); Albumin/Globulin Ratio 1.4 (1.1-1.8); Alkaline Phosphatase 104 U/L (38-126); Anion Gap 11.9 mEq/L (5-15); Bilirubin,Total 0.4 mg/dl (0.2-1.3); Calcium 9.1 mg/dl (8.4-10.2); Carbon Dioxide 25 mmol/L (22.0-30.0); Globulin 2.9 g/dL (1.3-3.2); Glucose 98 mg/dl (74-100)
[2021-10-27 14:15] VITALS: BP 126/87; PULSE 114; RESP 18; TEMP 36.7; O2SAT 96
[2021-10-27 15:15] VITALS: BP 140/77; PULSE 94; RESP 16
== END 2021-10-27 15:20 | disposition home or self-care (01) ==
LOC: COVID.OUT 12:27 → INF 13:57
PROVIDERS: PCP Internal Medicine Adolescent Medicine; Visit Provider Nurse Practitioner Family
DX: Z20.822 Contact with and (suspected) exposure to COVID-19 (principal); E86.0 Dehydration; R50.9 Fever, unspecified
CPT/HCPCS: 36415; 71045; 80053; 85025; 87581; 87632; 87798; 96360; C9803; U0003; U0005

== ENCOUNTER → 2021-11-27 10:30 | Outpatient (POV) | payer OTHER, SELFPAY ==
[2021-11-27 10:58] VITALS: BP 130/78; PULSE 78; RESP 18; TEMP 36.9; O2SAT 97; BMI 36.2
--- NOTE | 2021-12-02 21:04 | HMH.PAINSOAP ---
[facility] Pain Management SOAP Note Subjective:: This patient is a very pleasant 56-year-old white female who presents today for follow-up. She is currently being treated for left-sided sacroiliitis. She previously underwent a corner lock procedure on the left on July 21, 2021. Overall she states she is doing very well and is very satisfied with the results of the procedure and states that she is more functional after undergoing this procedure. She continues to experience 70 to 80% pain relief that is ongoing. She has occasional bilateral hip pain but states that the compounding cream helps keep the pain tolerable. She rates her pain today as a 4 out of 10. Objective:: General: Alert and oriented x3, no acute distress, pleasant and cooperative Lungs: Resps E/U, symmetric chest expansion Eyes: PERRL Musculoskeletal: limited flexion and extension of the lumbar spine secondary to pain. Deep tendon reflexes were normal in bilateral lower extremities. Motor exam was grossly intact in the bilateral lower extremities, antalgic gait noted. Neurological: Speech is clear, human resources partner equal, no gross sensory deficits Assessment:: Left-sided sacroiliitis, chronic low back pain, left-sided hip pain Plan:: I discussed with the patient that she should continue using the compounding cream as needed for her pain. We will follow-up with this patient in 3 months for reassessment of her chronic pain symptoms and medication refills. Tevin and prior drug screens reviewed and appropriate [facility] History Medical History: Reports:: Diabetes Mellitus Type 2, Gastroesophageal Reflux Disease(GERD), Hypertension, MRSA Denies:: Cancer, Diabetes Mellitus Type 1, Internal Pacemaker, Seizures *Have you ever received a pneumonia vaccine?: Yes *Have you received a flu vaccine this season?: Yes Other Medical History: Reports: Arthritis (LUPUS), Thyroid Disease. Denies: Blood Transfusion Reaction Other Surgeries: Yes: BSO, Hysterectomy-Total, Hysterectomy-Partial. No: Pacemaker Amputation: No Fractures: No - *Social History Smoking Status: Never smoker Alcohol Intake: never Substance Use Type: denies use *Occupational Status:: employed Housing: house Household Members: spouse *Travel in the last 8 weeks: None Family Hx:: Cancer
== END ==
PROVIDERS: Visit Provider Anesthesiology Pain Medicine
DX: M46.1 Sacroiliitis, not elsewhere classified (principal); M54.50 Low back pain, unspecified; G89.29 Other chronic pain; M25.552 Pain in left hip
CPT/HCPCS: 99212; G0463

== ENCOUNTER → 2021-12-22 07:51 | Outpatient (CLI) | payer OTHER, SELFPAY ==
--- NOTE | 2021-12-22 08:02 | MM_ITS ---
PROCEDURE INFORMATION: Exam: MG Bilateral Screening 3D Mammography Exam date and time: 12/22/2021 7:58 AM Age: 56 years old Clinical indication: Encounter for screening mammogram for malignant neoplasm of breast TECHNIQUE: Imaging protocol: Bilateral Screening tomosynthesis and 2D mammography including computer-aided detection (CAD) when performed. COMPARISON: MG MM DIG SCREENING MAMM BI W/CAD 09/22/2019 8:28 AM FINDINGS: MAMMOGRAPHY: Breast composition: The breast tissue is composed of scattered areas of fibroglandular density. Mass: None. Architectural distortion: None. Calcifications: No suspicious calcifications. Asymmetric density: None. Skin thickening: None. Axillary adenopathy: None. IMPRESSION: No mammographic evidence of malignancy. Annual screening is recommended unless otherwise clinically indicated. ASSESSMENT: BI-RADS Category 1: Negative
== END ==
PROVIDERS: PCP Internal Medicine Adolescent Medicine; Visit Provider Internal Medicine Adolescent Medicine
DX: Z12.31 Encounter for screening mammogram for malignant neoplasm of breast (principal)
CPT/HCPCS: 77063; 77067

== ENCOUNTER → 2022-03-06 08:21 | Outpatient (POV) | payer OTHER, SELFPAY ==
[2022-03-06 08:30] VITALS: BP 131/78; PULSE 84; RESP 18; TEMP 36.4; O2SAT 96; BMI 34.0
--- NOTE | 2022-03-06 08:38 | P.CONS_ITS ---
[facility] Pain Management SOAP Note Subjective:: Patient is a pleasant 56-year-old female who presents today for a 3 month follow-up. Patient is currently being treated for sacroiliitis. She had a left-sided cornerloc procedure on July 21, 2021. She has done well with this procedure. Patient also has a history of rheumatoid arthritis and currently on methotrexate. Today, patient presents with worsening right hip pain that has been going on for about 2 weeks. Denies any recent falls or traumas. Patient cannot tolerate any prolonged activity such as sitting, standing, and walking. Denies any loss of bowel or bladder functions. She is currently taking [place] 5 mg 4 times a day that is prescribed by an outside clinic. She says that she has been on this medication for a long time and has developed some tolerance. She says that this medication is not helping her right hip pain as much. She has also tried the compounding cream we prescribed her in the past. This is only helping her pain for about 20 to 30 minutes. Rates her pain today as 5 out of 10. Tevin [id number] with an active morphine equivalent of 20. Review of Systems: General: No recent weight changes, no fever, no sleep disturbances Respiratory: No cough, no shortness of air, no recurring pulmonary infections Cardiovascular/peripheral vascular: No chest pain, no palpitations, no edema, no shortness of breath Gastrointestinal: No new onset incontinence, normal bowel movements reported Genitourinary: No new onset incontinence Musculoskeletal: Bilateral hip pain Psychiatric: [Normal mood/affect] Neurological: [Denies weakness in extremities], [denies balance issues] Objective:: Physical Exam: General: Alert and oriented x3, no acute distress, pleasant and cooperative Lungs: Respirations even and unlabored, symmetrical chest expansion Eyes: PERRL Musculoskeletal: Bilateral SI are positive for MALLORY, Devin's, Erie's, Gae nslen's, compression, and distraction. Neurological: Speech clear, no gross sensory deficit Assessment:: Bilateral sacroiliitis, rheumatoid arthritis Plan:: Patient presents today with worsening right hip pain that has been going on for about 2 weeks now. Upon exam, patient has an extreme point of tenderness on bilateral SI. SI exam is positive for both SI joints. We will schedule this patient for a bilateral SI injection. Risk and benefits have been discussed with the patient. Patient would like to proceed with this procedure. Patient has been instructed to contact the clinic with any concerns before the next appointment. Dr. Bueno has reviewed this note and agrees with this plan of care. This note was dictated using voice recognition software and make contain errors or omissions. [facility] History Medical History: Reports:: Diabetes Mellitus Type 2, Gastroesophageal Reflux Disease(GERD), Hypertension, MRSA Denies:: Cancer, Diabetes Mellitus Type 1, Internal Pacemaker, Seizures *Have you ever received a pneumonia vaccine?: Yes *Have you received a flu vaccine this season?: Yes Other Medical History: Reports: Arthritis (LUPUS), Thyroid Disease. Denies: Blood Transfusion Reaction Other Surgeries: Yes: BSO, Hysterectomy-Total, Hysterectomy-Partial. No: Pacemaker Amputation: No Fractures: No - *Social History Smoking Status: Never smoker Alcohol Intake: never Substance Use Type: denies use *Occupational Status:: unemployed Housing: house Household Members: spouse *Travel in the last 8 weeks: None Family Hx:: Cancer
== END ==
PROVIDERS: Visit Provider Student in an Organized Health Care Education/Training Program
DX: M46.1 Sacroiliitis, not elsewhere classified (principal); M06.9 Rheumatoid arthritis, unspecified
CPT/HCPCS: 99212; G0463

== ENCOUNTER 2022-03-13 12:29 | Day surgery (SDC) | payer OTHER, SELFPAY ==
[2022-03-13 13:04] VITALS: BP 153/69; PULSE 94; RESP 20; TEMP 36.5; O2SAT 99; BMI 32.8
[2022-03-13 13:08] VITALS: BP 116/67; PULSE 89; RESP 20
--- NOTE | 2022-03-13 13:12 | P.PCN_ITS ---
- Procedure Date: 03/13/22 Time: 13:12 Anesthesiologist:: Gerardo Thomas CRNA Complications:: None Pre-procedure Diagnosis:: Bilateral sacroiliitis. Post-procedure Diagnosis:: Same Indications for Procedure:: Patient is a very pleasant 56-year-old female who has had right SI joint injection in the past with subsequent right sacroiliac joint distraction procedure. The procedure did not give her much relief on the right side. However today she presents with bilateral SI joint pain. She has extreme point tenderness upon evaluation of the bilateral SI joints. Patient currently taking [place] 5 mg 1 p.o. 4 times daily. This is given to her by her PCP. Procedure Details:: Procedure: Bilateral sacroiliac joint injections under fluoroscopy Informed consent was obtained and the risks and benefits of the procedure were explained to the patient.~ The patient was taken to the procedure room and noninvasive monitors were placed including a noninvasive blood pressure cuff and pulse oximeter.~ The patient was placed prone on the procedure table. Both hips were cleansed using Betadine as a cleansing solution. C-arm fluoroscopy was used to view the right sacroiliac joint.~ The skin and subcutaneous tissues were anesthetized using lidocaine 1.5% and a 25-gauge needle.~ After this, a 22-gauge spinal needle was inserted under fluoroscopic guidance into the inferior aspect of the right sacroiliac joint.~ Omnipaque dye was injected and good spread was seen throughout the joint.~ After this, approximately 5 mL of bupivacaine, 0.25% and Depo-Medrol, 40 mg was incrementally injected into the right sacroiliac joint. We then moved to the left sacroiliac joint.~ The skin and subcutaneous tissues were anesthetized using lidocaine 1.5% and a 25-gauge needle.~ After this, a 22- gauge spinal needle was inserted under fluoroscopic guidance into the inferior aspect of the left sacroiliac joint.~ Omnipaque dye was injected and good spread was seen throughout the joint. After this, approximately 5 mL of bupivacaine, 0.25% and Depo-Medrol, 40 mg was incrementally injected into the left sacroiliac joint.~ The patient tolerated the procedure well with no complications. The patient was observed in the Pain Clinic and then was discharged home neurologically intact. Plan and Disposition:: Patient was discharged from the clinic essentially without pain in the low back.
[2022-03-13 13:20] VITALS: BP 128/68; PULSE 78; RESP 17; O2SAT 96
== END 2022-03-13 13:21 | disposition home or self-care (01) ==
LOC: SC.PAINP 12:30
PROVIDERS: PCP Internal Medicine Adolescent Medicine; Visit Provider Nurse Anesthetist, Certified Registered
DX: M46.1 Sacroiliitis, not elsewhere classified (principal); E11.9 Type 2 diabetes mellitus without complications; K21.9 Gastro-esophageal reflux disease without esophagitis; I10 Essential (primary) hypertension; M51.16 Intervertebral disc disorders with radiculopathy, lumbar region
CPT/HCPCS: 27096; 76000; G0260; J1040

== ENCOUNTER → 2022-03-29 10:04 | Outpatient (POV) | payer OTHER, SELFPAY ==
[2022-03-29 10:20] VITALS: BP 137/69; PULSE 70; RESP 18; TEMP 36.7; O2SAT 99; BMI 34.2
--- NOTE | 2022-03-29 10:42 | HMH.PAINSOAP ---
[facility] Pain Management SOAP Note Subjective:: Patient is a pleasant 56 year-old female who presents today for follow-up from bilateral SI injections. We are currently treating the patient for sacroiliitis. Patient states that today her pain is a 4 out of 10. Pain is located in her low back and hips. She states that she has had about 70% relief on her right SI area and 40% on her left. She states the left-sided pain is a sharp constant pain, and she cannot sleep on that left side due to. Pain is worse with activity. Today she does state that her left hip is bothering her as well. Patient denies any recent falls or traumas. She has had multiple injections in the past with minimal relief. Patient does take [place] 5 mg 4 times daily from her primary care. We have also tried compounding cream and topicals in the past with minimal relief. Her Tevin is [id number]. Has been reviewed and is appropriate. Review of Systems: General: No recent weight changes, no fever, no sleep disturbances Respiratory: No cough, no shortness of air, no recurring pulmonary infections Cardiovascular/peripheral vascular: No chest pain, no palpitations, no edema, no shortness of breath Gastrointestinal: No new onset incontinence, normal bowel movements reported Genitourinary: No new onset incontinence Musculoskeletal: Low back pain, left hip pain Psychiatric: [Normal mood/affect] Neurological: [Denies weakness in extremities], [denies balance issues] Objective:: Physical Exam: General: Alert and oriented x3, no acute distress, pleasant and cooperative Lungs: Respirations even and unlabored, symmetrical chest expansion Eyes: PERRL Musculoskeletal: Flexion and extension of lumbar [spine] somewhat guarded secondary to pain, [antalgic gait noted] Neurological: Speech clear, no gross sensory deficit Assessment:: Sacroiliitis, left greater trochanteric bursitis Plan:: Patient presents today with worsening left SI pain and left hip pain. She stated she has had 70% relief in her right SI. She had extreme point tenderness upon evaluation on her left SI joint and left hip. I have discussed options with the patient for possibly doing another left SI injection or radiofrequency ablation as well as a left greater trochanteric bursa injections. Risk and benefits were discussed with each injection. At this time patient would like to schedule her left hip bursa injection. Patient has had significant relief on her right SI. At this time she is not interested in any repeat injections or stabilization procedures on the right side. Patient is not currently taking any blood thinners. Patient will be scheduled for a left greater trochanteric bursa injection. Patient has been instructed to contact the clinic with any concerns before the next appointment. Dr. Bueno has reviewed this note and agrees with this plan of care. This note was dictated using voice recognition software and make contain errors or omissions. [facility] History I have reviewed the patient's past medical history: Yes Medical History: Reports:: Diabetes Mellitus Type 2, Gastroesophageal Reflux Disease(GERD), Hypertension, MRSA Denies:: Cancer, Diabetes Mellitus Type 1, Internal Pacemaker, Seizures *Have you ever received a pneumonia vaccine?: Yes *Have you received a flu vaccine this season?: Yes Other Medical History: Reports: Arthritis (LUPUS), Thyroid Disease. Denies: Blood Transfusion Reaction Other Surgeries: Yes: BSO, Hysterectomy-Total, Hysterectomy-Partial. No: Pacemaker Amputation: No Fractures: No - *Social History Smoking Status: Never smoker Alcohol Intake: never Substance Use Type: denies use *Occupational Status:: other Housing: house Household Members: spouse *Travel in the last 8 weeks: Inside the [place] Family Hx:: Cancer
== END ==
PROVIDERS: Visit Provider Student in an Organized Health Care Education/Training Program
DX: M46.1 Sacroiliitis, not elsewhere classified (principal); M70.62 Trochanteric bursitis, left hip
CPT/HCPCS: 99212; G0463

== ENCOUNTER 2022-04-01 18:17 | Emergency (ER) | payer OTHER, SELFPAY ==
[2022-04-01 18:18] VITALS: BP 115/82; PULSE 103; RESP 18; TEMP 36.7; O2SAT 97; BMI 34.2
--- NOTE | 2022-04-01 18:29 | PC.NURSE ---
PT SITTING UP IN BED, NO DISTRESS NOTED. FAMILY AT BEDSIDE. CALL LIGHT WITHIN REACH
--- NOTE | 2022-04-01 18:35 | HMH.EDALLER ---
ED Disposition Clinical Impression: Allergic reaction Qualifiers: Encounter type: initial encounter Qualified Code(s): T78.40XA - Allergy, unspecified, initial encounter Insect sting allergy, current reaction Qualifiers: Encounter type: initial encounter Injury intent: accidental or unintentional Qualified Code(s): T63.481A - Toxic effect of venom of other arthropod, accidental (unintentional), initial encounter Disposition: Home, Self-Care Condition on Discharge: Fair Instructions: DI for Insect Bites and Stings Additional Instructions: Return to the emergency department immediately if you feel worse in any way. Continue taking Benadryl for the next day or 2 as needed. Follow-up with your primary care physician in about 3 to 4 days even if you feel better. Prescriptions: predniSONE [Deltasone 20mg tablet] 60 mg PO DAILY #15 tab Transmission Status: Received by [facility] EPINEPHrine [Epipen] 0.3 mg IJ ONCE #1 each Transmission Status: Received by [facility] Referrals: Provider,Referral, [Referring] - - Critical Care Critical Care Time: No Attestation: On 04/01/22, the high probability of a clinically significant, sudden or life threatening deterioration of the following system(s) required my full and direct attention, intervention and personal management. The time I documented below is in addition to time spent performing reported procedures but includes the following listed in this critical care notation. Medical Decision Making - Tevin Inquiry Pt receiving controlled substance: No Vital Signs: 04/01/22 18:18 04/01/22 19:00 Temperature 98.0 F Temperature Source Oral Pulse Rate 95 H Pulse Rate [Brachial] 103 H Respiratory Rate 18 Blood Pressure 125/89 Blood Pressure [Right Arm] 115/82 Blood Pressure Mean [Right Arm] 93 Blood Pressure Source [Right Arm] Automatic Cuff Blood Pressure Position [Right Arm] Sitting 02 Sat by Pulse Oximetry 97 98 Oxygen Delivery Method Room Air Room Air Medical Decision Narrative: The patient was observed in the emergency department for over 1 hour. She states that her symptoms continue to improve. She still has some redness and pruritus of the right upper extremity. Her voice continues to be clear. She continues to have clear breath sounds. Her tongue swelling has also improved since she arrived. The patient will be discharged in stable and improved condition with instructions to return immediately to the emergency department if she gets worse in any way. A prescription for oral steroids and an EpiPen have been sent to the local [facility] for her pickup. Patient has been advised of this and has agreed to pick them up today. Allergic React/Insect Bite HPI - General Chief complaint: Allergic Reaction Stated complaint: INSECT STING Time Seen by Provider: 04/01/22 18:20 Mode of Arrival - ED Triage: EMS Source of Information: Patient Limitations: No Limitations - History of Present Illness HPI narrative: The patient states that she was stung by an insect on her right arm. Within a few minutes she started swelling. When EMS arrived the patient had swelling of the lips, periorbital areas, and tongue. She was given Solu-Medrol as well as Benadryl by EMS. By the time the patient arrived to this emergency department her symptoms had significantly improved. The patient states that she removed the insect stinger from her arm. MD complaint: allergic reaction, hives, facial swelling Allergies/Adverse Reactions: Allergies Allergy/AdvReac Type Severity Reaction Status Date / Time lisinopril [LISINOPRIL] Allergy Mild Verified 07/21/21 09:59 nitrofurantoin Allergy Unknown Verified 07/21/21 09:59 [From Macrobid] sulfamethoxazole Allergy Unknown Verified 07/21/21 09:59 [From BACTRIM] trimethoprim [From BACTRIM] Allergy Unknown Verified 07/21/21 09:59 vancomycin [VANCOMYCIN] Allergy Unknown Verified 07/21/21 09:59
[2022-04-01 19:00] VITALS: BP 125/89; PULSE 95; O2SAT 98
--- NOTE | 2022-04-01 19:16 | PC.NURSE ---
Received report from Selvin Armando RN.
[2022-04-01 19:24] VITALS: BP 125/89; PULSE 89; RESP 17; TEMP 36.7; O2SAT 99
== END 2022-04-01 19:46 | disposition home or self-care (01) ==
PROVIDERS: Emergency Provider Emergency Medicine; PCP Internal Medicine Adolescent Medicine
DX: T63.481A Toxic effect of venom of other arthropod, accidental (unintentional), initial encounter (principal); Z79.899 Other long term (current) drug therapy; E11.9 Type 2 diabetes mellitus without complications; K21.9 Gastro-esophageal reflux disease without esophagitis; I10 Essential (primary) hypertension; M19.90 Unspecified osteoarthritis, unspecified site; E07.9 Disorder of thyroid, unspecified; Z86.14 Personal history of Methicillin resistant Staphylococcus aureus infection
CPT/HCPCS: 99283

== ENCOUNTER → 2022-10-17 13:57 | Outpatient (POV) | payer OTHER, SELFPAY ==
[2022-10-17 15:10] VITALS: BP 137/83; PULSE 79; RESP 18; O2SAT 98; BMI 30.2
--- NOTE | 2022-10-17 15:14 | EXP.PAIN.SOA ---
[facility] Pain Management SOAP Note Subjective:: Patient is a pleasant 57-year-old female who presents today for follow-up. We are currently treating the patient for sacroiliitis, low back pain with lumbar radiculopathy symptoms. Today she rates her pain a 4 out of 10. Patient denies any new trauma or injury. Patient denies any change location or type of pain she experiences. Patient does state that she continues to have pain in her low back along the left side radiating into her left buttocks and groin. Patient does describe this as a aching, throbbing sensation that is worse with increased activity or prolonged standing, walking, sitting. Patient does use a heating pad on a daily basis to provide some additional relief. Patient has had multiple SI injections in the past that did provide significant improvement. Patient is prescribed [place] 5 mg 4 times a day from her primary care doctor. Patient denies any side effects from this medication. She states this medication does help manage her pain symptoms. Patient has been prescribed compounding cream in the past and states it did provide significant improvement however she has been out of this prescription for a while. Patient is also prescribed tizanidine 4 mg at bedtime that does well for her. Patient states in the past she has tried Flexeril and could not tolerate it. her Tevin is [id number]. Its been reviewed and appropriate. Review of Systems: General: No recent weight changes, no fever, no sleep disturbances Respiratory: No cough, no shortness of air, no recurring pulmonary infections Cardiovascular/peripheral vascular: No chest pain, no palpitations, no edema, no shortness of breath Gastrointestinal: No new onset incontinence, normal bowel movements reported Genitourinary: No new onset incontinence Musculoskeletal: Low back pain, left leg pain, left groin pain Psychiatric: [Normal mood/affect] Neurological: [Denies weakness in extremities], [denies balance issues] Objective:: Physical Exam: General: Alert and oriented x3, no acute distress, pleasant and cooperative Lungs: Respirations even and unlabored, symmetrical chest expansion Eyes: PERRL Musculoskeletal: Flexion and extension of lumbar [spine] somewhat guarded secondary to pain, [antalgic gait noted] extreme point tenderness along her left SI and left greater trochanteric bursa and positive left Alisa's, Devin's, Gaenslen's, compression and distraction exam Neurological: Speech clear, no gross sensory deficit ORT score updated with low risk Assessment:: Chronic sacroiliitis, low back pain with lumbar radiculopathy symptoms Plan:: Patient is experiencing significant pain in her low back along the left side and radiating into her left buttocks and groin. Patient did have limited range of motion of her lumbar spine and extreme point tenderness along her left SI and left greater trochanteric bursa as well as a positive left Alisa's, Devin's, Gaenslen's, compression and distraction exam. I have discussed with the patient that she may benefit from left SI and left bursa injections. Risk and benefits were explained to the patient. She agrees with this plan of care. I will order the patient a compounding cream and refill her tizanidine 4 mg at bedtime providing a 1 month supply of this medication. At today's visit. We will schedule the patient for a left SI and left greater trochanteric bursa injection. Patient has been instructed to contact the clinic with any concerns before the next appointment. Dr. Bueno has reviewed this note and agrees with this plan of care. This note was dictated using voice recognition software and make contain errors or omissions. [facility] Disclaimer: The information contained in this section may have been updated after the patient was seen, as this information can be updated by other users. Social History Smoking Status: Never smoker second hand exposure: No alcohol intake: never substance use type: d
== END | disposition home or self-care (01) ==
PROVIDERS: PCP Internal Medicine Adolescent Medicine; Visit Provider Nurse Practitioner Family
DX: M54.16 Radiculopathy, lumbar region (principal); M46.1 Sacroiliitis, not elsewhere classified; M54.50 Low back pain, unspecified
CPT/HCPCS: 99212; G0463

== ENCOUNTER 2022-10-23 10:30 | Day surgery (SDC) | payer OTHER, SELFPAY ==
[2022-10-23 10:43] VITALS: BP 148/97; BP 150/85; PULSE 76; PULSE 78; RESP 18; TEMP 36.3; O2SAT 97; O2SAT 99; BMI 30.2
[2022-10-23 11:01] VITALS: BP 150/85; PULSE 76; RESP 18; O2SAT 99
[2022-10-23 11:14] VITALS: BP 118/78; PULSE 69; RESP 18; O2SAT 97
--- NOTE | 2022-10-23 11:25 | P.PCN_ITS ---
Procedure Date: 10/23/22 Time: 11:00 Anesthesiologist:: Gerardo Thomas CRNA Complications:: None Pre-procedure Diagnosis:: Left sacroiliitis. Left trochanteric bursitis. Post-procedure Diagnosis:: Same. Indications for Procedure:: Patient is a very pleasant 57-year-old female comes our clinic today with left low lumbar pain as well as left buttock pain. Pain on the left lateral border of the hip joint. She describes this pain as constant, dull, sharp and stabbing. She rates pain 7/10 Procedure Details:: Procedure: Left sacroiliac injection under fluoroscopy Informed consent was obtained and the risk and benefits of the procedure were explained to the patient.~ The patient was taken to the procedure room and noninvasive monitors were placed including noninvasive blood pressure cuff and pulse oximeter.~ The patient was placed prone on the procedure table.~ The~ left hip was cleansed using Betadine as a cleansing solution.~ C-arm fluorosocpy was used to view the left SI joint.~ The skin and subcutaneous tissues were anesthetized using Lidocaine 1.5% and a 25-gauge needle.~ After this, a 22-gauge spinal needle was inserted under fluoroscopic guidance into the inferior aspect of the left SI joint.~ Omnipaque dye was injected and a good spread was seen throughout the joint.~ After this, approximately 5 mL of bupivacaine 0.25% and Depo-Medrol 40 mg was incrementally injected into the sacroiliac joint.~ The patient tolerated the procedure well with no complications.~ The patient was observed in the Pain Clinic for a period of 30-45 minutes, then discharged home neurologically intact.~ Procedure:Left trochanteric bursa injection under fluoroscopy We then moved to the left trochanteric bursa.~ C-arm fluoroscopy was used to view the left greater trochanter.~ The skin and subcutaneous tissues overlying the left greater trochanter were anesthetized using lidocaine, 1.5% and a 25- gauge needle.~ After this, a 22-gauge spinal needle was inserted and advanced until it contacted the left greater trochanter.~ Dye was injected and good spread was seen throughout the left trochanteric bursa. After this, approximately 5 mL of bupivacaine, 0.25% and Depo-Medrol, 40 mg was incrementally injected into the left trochanteric bursa.~ The patient tolerated the procedure well with no complications. Plan and Disposition:: Patient was discharged without incident.
== END 2022-10-23 11:14 | disposition home or self-care (01) ==
PROVIDERS: PCP Internal Medicine Adolescent Medicine; Visit Provider Nurse Anesthetist, Certified Registered
DX: M46.1 Sacroiliitis, not elsewhere classified (principal); M70.62 Trochanteric bursitis, left hip; M54.50 Low back pain, unspecified
CPT/HCPCS: 20610; 27096; 77002; G0260; J1040

== ENCOUNTER → 2022-11-14 09:04 | Outpatient (POV) | payer OTHER, SELFPAY ==
--- NOTE | 2022-11-14 09:37 | EXP.PAIN.SOA ---
[facility] Pain Management SOAP Note Subjective:: Patient is a pleasant 57-year-old female who presents today for follow-up of left SI and left bursa injection on 10/23/2021. We are currently treating the patient for sacroiliitis, low back pain, lumbar radiculopathy symptoms. Today the patient rates her pain a 6 out of 10. Patient states that she has had at least 60% improvement following this injection and states that it worked really well for over 2 weeks however about 2 days ago she was walking up some stairs and did have additional pain. Patient states that she is still not back to her baseline and that at this time it is tolerable. Patient denies any new trauma or injury. Patient denies any change location or type of pain she experiences. Patient was prescribed tizanidine 4 mg at night at our last visit and she does state this has provided significant improvement along with the compounding cream. Patient states she does not need refills at this time. Patient is prescribed [place] 5 mg 4 times a day by Dr. Schrader's office. Patient denies any side effects from this medication. Her Tevin is [id number]. Its been reviewed and appropriate. Review of Systems: General: No recent weight changes, no fever, no sleep disturbances Respiratory: No cough, no shortness of air, no recurring pulmonary infections Cardiovascular/peripheral vascular: No chest pain, no palpitations, no edema, no shortness of breath Gastrointestinal: No new onset incontinence, normal bowel movements reported Genitourinary: No new onset incontinence Musculoskeletal: Low back pain Psychiatric: [Normal mood/affect] Neurological: [Denies weakness in extremities], [denies balance issues] Objective:: Physical Exam: General: Alert and oriented x3, no acute distress, pleasant and cooperative Lungs: Respirations even and unlabored, symmetrical chest expansion Eyes: PERRL Musculoskeletal: Flexion and extension of lumbar [spine] somewhat guarded secondary to pain, [antalgic gait noted] Neurological: Speech clear, no gross sensory deficit Assessment:: Low back pain with lumbar radiculopathy symptoms, sacroiliitis Plan:: Patient has had significant improvement following her SI injection and does not require any additional injective therapy at this time. Patient will return to clinic in 1 month for reevaluation of symptoms and plan of care. Patient has been instructed to contact the clinic with any concerns before the next appointment. Dr. Bueno has reviewed this note and agrees with this plan of care. This note was dictated using voice recognition software and make contain errors or omissions. [facility] Disclaimer: The information contained in this section may have been updated after the patient was seen, as this information can be updated by other users. Social History Smoking Status: Never smoker second hand exposure: No alcohol intake: never substance use type: denies use current occupational status: other Travel in the last 8 weeks: None household members: spouse housing: house current occupational exposures/hazards: No caffeine: Yes
[2022-11-14 09:46] VITALS: BP 104/77; PULSE 79; RESP 18; O2SAT 98; BMI 29.2
== END ==
PROVIDERS: PCP Internal Medicine Adolescent Medicine; Visit Provider Nurse Practitioner Family
DX: M54.16 Radiculopathy, lumbar region (principal); M54.50 Low back pain, unspecified; M46.1 Sacroiliitis, not elsewhere classified
CPT/HCPCS: 99212; G0463

== ENCOUNTER → 2022-12-12 09:21 | Outpatient (POV) | payer OTHER, SELFPAY ==
[2022-12-12 09:30] VITALS: BP 124/69; PULSE 72; RESP 20; BMI 29.2
--- NOTE | 2022-12-12 09:56 | A.OFFVIS_ITS ---
[facility] Pain Management SOAP Note Subjective:: Patient is a pleasant 57-year-old female who presents today for follow-up. We are currently treating the patient for sacroiliitis, low back pain, lumbar radiculopathy symptoms. Today she rates her pain a 6 out of 10. Patient denies any new trauma or injury. Patient states she continues to have relief along her left SI and left hip following her last injections in September however today she states she is experiencing more pain on her right. Patient states it is very similar in nature compared to what her left side would feel like. Patient denies ever having to get injections at this location. Patient is currently managed with tizanidine 4 mg at night along with [place] 5 mg 4 times [address] day [address] Daly's office. Patient denies any side effects from these medications. She is also prescribed compounding cream. Her Tevin is [id number]. Its been reviewed and appropriate. Review of Systems: General: No recent weight changes, no fever, no sleep disturbances Respiratory: No cough, no shortness of air, no recurring pulmonary infections Cardiovascular/peripheral vascular: No chest pain, no palpitations, no edema, no shortness of breath Gastrointestinal: No new onset incontinence, normal bowel movements reported Genitourinary: No new onset incontinence Musculoskeletal: Low back pain, right hip pain, right leg pain Psychiatric: [Normal mood/affect] Neurological: [Denies weakness in extremities], [denies balance issues] Objective:: Physical Exam: General: Alert and oriented x3, no acute distress, pleasant and cooperative Lungs: Respirations even and unlabored, symmetrical chest expansion Eyes: PERRL Musculoskeletal: Flexion and extension of lumbar [spine] somewhat guarded secondary to pain, [antalgic gait noted] point tenderness along right SI and right greater trochanteric bursa with positive right Alisa's, Devin's, Gaenslen's, compression and distraction exam Neurological: Speech clear, no gross sensory deficit Assessment:: Low back pain with lumbar radiculopathy symptoms, bilateral sacroiliitis, greater trochanteric bursitis Plan:: Patient is experiencing significant pain in her low back along the right side r adiating into her right hip and right upper thigh. Patient did have limited range of motion of her lumbar spine as well as point tenderness at her right SI and right greater trochanteric bursa. Patient will also had a positive right Alisa's, Devin's, Gaenslen's, compression and distraction exam. I have discussed with the patient that she may benefit from right SI and right greater trochanteric bursa injections. Risk and benefits were discussed with the patient and she would like to proceed forward with this plan of care. We will schedule the patient for a right SI and right greater trochanteric bursa injection. Patient has been instructed to contact the clinic with any concerns before the next appointment. Dr. Bueno has reviewed this note and agrees with this plan of care. This note was dictated using voice recognition software and make contain errors or omissions. [facility] Disclaimer: The information contained in this section may have been updated after the patient was seen, as this information can be updated by other users. Social History Smoking Status: Never smoker second hand exposure: No alcohol intake: never substance use type: denies use current occupational status: other Travel in the last 8 weeks: None household members: spouse housing: house current occupational exposures/hazards: No caffeine: Yes
== END ==
PROVIDERS: PCP Internal Medicine Adolescent Medicine; Visit Provider Nurse Practitioner Family
DX: M54.16 Radiculopathy, lumbar region (principal); M54.50 Low back pain, unspecified; M46.1 Sacroiliitis, not elsewhere classified; M70.60 Trochanteric bursitis, unspecified hip
CPT/HCPCS: 99212; G0463

== ENCOUNTER 2022-12-25 07:59 | Day surgery (SDC) | payer OTHER, SELFPAY ==
[2022-12-25 08:15] VITALS: BP 157/79; PULSE 70; RESP 18; TEMP 36.2; O2SAT 99; BMI 29.2
[2022-12-25 08:45] VITALS: BP 145/80; PULSE 69; RESP 18; O2SAT 99
--- NOTE | 2022-12-25 09:36 | P.PCN_ITS ---
Procedure Date: 12/25/22 Time: 08:35 Anesthesiologist:: Gerardo Thomas CRNA Complications:: None Pre-procedure Diagnosis:: Right trochanteric bursitis. Right hip osteoarthritis. Post-procedure Diagnosis:: Same. Indications for Procedure:: Patient is a pleasant 57-year-old female comes to clinic today for right trochanteric bursa injection as well as right intra-articular hip injection. Patient reports she has had the same injection therapy on the left side with significant improvement. She complains of right groin pain as well as right lateral hip pain. She has extreme point tenderness over the right greater trochanteric bursa. Patient has difficulty with abduction and abduction on the right. Patient complains of pain when lying on the right side. Procedure Details:: Procedure: Right trochanteric bursa injection under fluoroscopy We then moved to the right trochanteric bursa.~ C-arm fluoroscopy was used to view the left greater trochanter.~ The skin and subcutaneous tissues overlying the right greater trochanter were anesthetized using lidocaine, 1.5% and a 25- gauge needle.~ After this, a 22-gauge spinal needle was inserted and advanced until it contacted the right greater trochanter.~ Dye was injected and good spread was seen throughout the right trochanteric bursa. After this, approximately 5 mL of bupivacaine, 0.25% and Depo-Medrol, 40 mg was incrementally injected into the right right trochanteric bursa.~ The patient tolerated the procedure well with no complications. Details of the procedure were explained to the patient. The patient was taken to procedure room placed in the supine position. The area over the right hip was cleaned using chlorhexidine as a cleansing solution. Using fluoroscopy guidance a 3 and half inch 22-gauge spinal needle was used to access the right hip joint without difficulty. After negative aspiration 3 cc of 1% lidocaine +3 cc of 0.25% Marcaine and 40 mg of Depo-Medrol was injected. Needle was withdrawn. Band-Aid applied. Patient tolerated procedure without difficulty. There are no complications. Plan and Disposition:: Patient was discharged without incident.
== END 2022-12-25 08:45 | disposition home or self-care (01) ==
LOC: SC.PAINP 08:00
PROVIDERS: PCP Internal Medicine Adolescent Medicine; Visit Provider Nurse Anesthetist, Certified Registered
DX: M70.61 Trochanteric bursitis, right hip (principal); M16.11 Unilateral primary osteoarthritis, right hip
CPT/HCPCS: 20610; 77002; J1040

== ENCOUNTER → 2023-01-14 10:41 | Outpatient (POV) | payer OTHER, SELFPAY ==
--- NOTE | 2023-01-14 10:47 | A.OFFVIS_ITS ---
[facility] Pain Management SOAP Note Subjective:: Patient is a pleasant 57-year-old female who presents today for follow-up of right bursa and right intra-articular hip injection on 12/25/2022.? We are currently treating the patient for sacroiliitis, low back pain, lumbar radiculopathy symptoms.? Today she rates her pain a 4 out of 10.? She states she has had at least 80% improvement on her right hip pain. She has been able to increase her activity and is now even able to sleep on that side. She does state today her pain is related to her left hip. Patient describes this as an aching, throbbing sensation that is worse with increased activity or she notices it when she is sleeping on the left side. She states this is unrelated to any trauma or injury. She is interested in injections today. Patient is currently managed with tizanidine 4 mg at night along with [place] 5 mg 4 times a day by Dr. Daly's office.? Patient denies any side effects from these medications.? She is also prescribed compounding cream.? Her Tevin is [id number].? Its been reviewed and appropriate. Review of Systems: General: No recent weight changes, no fever, no sleep disturbances Respiratory: No cough, no shortness of air, no recurring pulmonary infections Cardiovascular/peripheral vascular: No chest pain, no palpitations,? no edema, no shortness of breath Gastrointestinal: No new onset incontinence, normal bowel movements reported Genitourinary: No new onset incontinence Musculoskeletal: Left hip pain Psychiatric: [Normal mood/affect] Neurological: [Denies weakness in extremities], [denies balance issues] Objective:: Physical Exam: General: Alert and oriented x3, no acute distress, pleasant and cooperative Lungs: Respirations even and unlabored, symmetrical chest expansion Eyes: PERRL Musculoskeletal: Flexion and extension of left hip somewhat guarded secondary to pain, [antalgic gait noted] extreme point tenderness along left greater trochanteric bursa Neurological: Speech clear, no gross sensory deficit Assessment:: Sacroiliitis, low back pain, lumbar radiculopathy symptoms, greater trochanteric bursitis Plan:: Patient has had significant improvement in her symptoms along her right hip following her injections and does not require any additional injective therapy at that location. Patient is having worsening pain along her left hip and did have extreme point tenderness at her greater trochanteric bursa. I have discussed with the patient that she may benefit from left bursa injection. Risk and benefits were discussed with the patient and she would like to proceed forward with this plan of care. We will schedule her for a left greater trochanteric bursa injection. Patient has been instructed to contact the clinic with any concerns before the next appointment. Dr. Bueno has reviewed this note and agrees with this plan of care. This note was dictated using voice recognition software and make contain errors or omissions. [facility] Disclaimer: The information contained in this section may have been updated after the patient was seen, as this information can be updated by other users. Social History Smoking Status: Never smoker second hand exposure: No alcohol intake: never substance use type: denies use current occupational status: other Travel in the last 8 weeks: None household members: spouse housing: house current occupational exposures/hazards: No caffeine: Yes
[2023-01-14 11:35] VITALS: BP 138/92; PULSE 74; RESP 18; O2SAT 95; BMI 26.4
== END ==
PROVIDERS: PCP Internal Medicine Adolescent Medicine; Visit Provider Nurse Practitioner Family
DX: M54.16 Radiculopathy, lumbar region (principal); M54.50 Low back pain, unspecified; M46.1 Sacroiliitis, not elsewhere classified; M70.60 Trochanteric bursitis, unspecified hip
CPT/HCPCS: 99212; G0463

== ENCOUNTER 2023-01-22 13:14 | Day surgery (SDC) | payer OTHER, SELFPAY ==
[2023-01-22 13:35] VITALS: BP 120/68; PULSE 83; RESP 18; TEMP 36.3; O2SAT 99; BMI 28.1
[2023-01-22 13:36] VITALS: BP 115/70; PULSE 81; RESP 18; O2SAT 98
[2023-01-22 13:50] VITALS: BP 112/67; PULSE 74; RESP 18; O2SAT 99
--- NOTE | 2023-01-22 14:16 | P.PCN_ITS ---
Procedure Date: 01/22/23 Time: 13:50 Anesthesiologist:: Gerardo Thomas CRNA Complications:: None Pre-procedure Diagnosis:: Left greater trochanteric bursitis Post-procedure Diagnosis:: Same Indications for Procedure:: Patient is a pleasant 57-year-old female that comes our clinic today with left trochanteric bursitis symptoms. She has extreme point tenderness over the left bursa. She complains of left lateral hip pain that is constant, dull, sharp, stabbing at times. She rates pain 9/10. Procedure Details:: Procedure:Left trochanteric bursa injection under fluoroscopy We then moved to the left trochanteric bursa.~ C-arm fluoroscopy was used to view the left greater trochanter.~ The skin and subcutaneous tissues overlying the left greater trochanter were anesthetized using lidocaine, 1.5% and a 25- gauge needle.~ After this, a 22-gauge spinal needle was inserted and advanced until it contacted the left greater trochanter.~ Dye was injected and good spread was seen throughout the left trochanteric bursa. After this, approximat [place] 5 mL of bupivacaine, 0.25% and Depo-Medrol, 40 mg was incrementally injected into the left trochanteric bursa.~ The patient tolerated the procedure well with no complications. Plan and Disposition:: Patient was discharged without incident.
== END 2023-01-22 13:50 | disposition home or self-care (01) ==
LOC: SC.PAINP 13:14
PROVIDERS: PCP Internal Medicine Adolescent Medicine; Visit Provider Nurse Anesthetist, Certified Registered
DX: M70.62 Trochanteric bursitis, left hip (principal)
CPT/HCPCS: 20610; 77002; J1040

== ENCOUNTER → 2023-02-11 07:46 | Outpatient (CLI) | payer OTHER, SELFPAY ==
--- NOTE | 2023-02-11 07:49 | MR_ITS ---
FINAL REPORT CLINICAL HISTORY: NEUROPATHY, RIGHT FOOT DROP. losing weight. loss of muscle mass. FINDINGS: Multiplanar MR imaging of the brain was performed without and with contrast. There is no evidence of intracranial hemorrhage or mass. No abnormal extra-axial fluid collection is seen. The ventricular size is within normal limits. There is no evidence of shift of the midline structures. The posterior fossa and brainstem have an unremarkable appearance. No area of abnormal restricted diffusion is identified. No abnormal contrast enhancement is seen. Normal major vessel vascular flow voids are noted. IMPRESSION: No acute intracranial abnormality identified. Reviewed, Interpreted and Dictated by Adonay Galeana III, MD Transcribed by Kristin Nevarez Authenticated and [facility]
== END ==
PROVIDERS: PCP Internal Medicine Adolescent Medicine; Visit Provider Nurse Practitioner Family
DX: G62.9 Polyneuropathy, unspecified (principal); M19.90 Unspecified osteoarthritis, unspecified site; M21.371 Foot drop, right foot
CPT/HCPCS: 70553; A9576

== ENCOUNTER 2023-02-12 14:00 | Outpatient (RCR) | payer OTHER, SELFPAY ==
--- NOTE | 2023-02-07 11:43 | HMH.PTOPEV ---
PT Outpatient Evaluation Rehab PT Outpatient Evaluation Start: 02/07/23 10:00 Freq: Status: Active Protocol: Document 02/07/23 10:00 LORENASERJESSICA (Rec: 02/07/23 11:43 PDESEROUX [id number]) E-signed By Gerardo Romero, PT Outpatient Therapy Subjective History Subjective History Pt. is a 57 year old female whom presents to [facility] in [place] for the initial evaluation this date( 02/07/23) w/ c/o acute and constant RLE foot drop, giving out/ rolling my ankle, and numbness/tingling of insidious onset since Saturday(02/03/23). Pt. reports rolling my ankle Saturday(02/03/23), but denies having any P! nor ecchymosis. Pt. then reports rolling her ankle two more times in the next two days, but continues to deny ecchymosis nor P!. Pt. also c'd/o numbness in the RLE ankle post initial roll on Saturday(02/03/23). Pt. c/o stumbling during gait the past few days as well. Pt. does not currently c/o numbness, but c/o tingling in RLE ankle/ft. during dermatome discrimination testing this date. Pt. also c/o foot slap on concrete during gait the past few days. Pt. reports having an EMG set up for next (02/14/23). Pt. reports having poor active DF since Saturday(02/03/23), however, presented a video( from yesterday morning-) via phone to Physical Therapist this date(02/07/23) that exhibited symmetrical DF AROM in the RLE compared to the LLE. Pt. reports denise lab values a couple of days ago. Pt. denies having any recent diagnostic imaging nor injections for current complaint. Pt. denies having
== END 2023-04-03 17:20 | disposition home or self-care (01) ==
LOC: PT 14:00
PROVIDERS: PCP Internal Medicine Adolescent Medicine; Visit Provider Nurse Practitioner Family
DX: M21.371 Foot drop, right foot (principal)
CPT/HCPCS: 97110; 97140; 97163

== ENCOUNTER → 2023-03-04 09:36 | Outpatient (CLI) | payer OTHER, SELFPAY ==
--- NOTE | 2023-03-04 09:43 | MR_ITS ---
FINAL REPORT TECHNIQUE: MRI images of the thoracic spine were performed. CLINICAL HISTORY: LOW BACK PAIN, DDD, THORACIC RADICULOPATHY. RIGHT FOOT DROP. FINDINGS: There is a hemangioma in a mid thoracic vertebral body. Intravertebral disk signal is otherwise normal. Vertebral body signal is normal. There is no significant degenerative change. Cord signal is normal. Limited axial images demonstrate no significant stenosis. IMPRESSION: Unremarkable. Reviewed, Interpreted and Dictated by Ana Bruce MD Transcribed by Kristin Nevarez Authenticated and [facility]
--- NOTE | 2023-03-04 09:43 | MR_ITS ---
FINAL REPORT TECHNIQUE: Multiplanar and multisequence imaging of the lumbar spine was obtained without contrast. CLINICAL HISTORY: .RIGHT FOOT DROP. DDD. THORACIC RADICULOPATHY COMPARISON: 01/10/2021 FINDINGS: Hemangiomas are seen in L2 and L3. Marrow signal is otherwise normal. There is normal alignment of the lumbar vertebral bodies. Vertebral body height is preserved. The spinal cord ends at the level of L1. There is normal signal intensity within the substance of the distal spinal cord. No acute bone marrow edema or pathologic marrow replacement. No acute paraspinal abnormality is identified. Note is made of a left renal cyst. L1-2: There is no focal disc herniation, central canal stenosis or neuroforaminal narrowing. L2-3: There is bulge with no focal disc herniation, central canal stenosis or neuroforaminal narrowing. L3-4: There is an annular disc bulge with no focal disc herniation, central canal stenosis or neuroforaminal narrowing. L4-5: There is a left subarticular/foraminal protrusion, similar to prior exam which contacts the left L5 nerve root. There is mild central canal stenosis and [id number] left neural foraminal narrowing. L5-S1: There is mild annular disc bulge with no focal disc herniation, central canal stenosis or neuroforaminal narrowing. IMPRESSION: Left paracentral subarticular foraminal disc protrusion at L4-5, similar to prior exam. Multilevel degenerative disc disease, progressed. Reviewed, Interpreted and Dictated by Ana Bruce MD Transcribed by Kristin Nevarez Authenticated and [facility]
== END ==
PROVIDERS: PCP Internal Medicine Adolescent Medicine; Visit Provider Internal Medicine Adolescent Medicine
DX: M54.14 Radiculopathy, thoracic region (principal); M51.37 Other intervertebral disc degeneration, lumbosacral region; M54.50 Low back pain, unspecified
CPT/HCPCS: 72146; 72148; 76376

== ENCOUNTER → 2023-09-18 11:20 | Outpatient (POV) | payer OTHER, SELFPAY ==
--- OUTSIDE RECORDS SUMMARY | 2023-09-18 11:24 | XMS_ITS | Patient Health Record ---
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 Name Role Phone Malika Lamberto Primary Care Provider Cathy Bright Unavailable [phone] Sherri Roche Unavailable [phone] ALLERGIES Allergen (clinical drug ingredient) Drug/Non Drug Allergy documented on EMR Reaction Allergy Type Onset Date Status Macrobid throat swells, hives Drug Allergy Active Vancomycin Unknown Drug Allergy Active Sulfa burning, blisters Drug Allergy Active lisinopril lisinopril angioedema Drug Allergy Acti ve RESULTS Component Value Reference Range Notes CBC (INCLUDES DIFF/PLT) WITH SMEAR REVIEW () Reviewed date:11/16/2022 09:48:48 AM Interpretation: Performing Lab: Notes/Report: WHITE BLOOD CELL COUNT RED BLOOD CELL COUNT HEMOGLOBIN HEMATOCRIT MCV MCH MCHC RDW PLATELET COUNT NEUTROPHILS
--- NOTE | 2023-09-18 12:00 | EXP.PAIN.SOA ---
[facility] Pain Management SOAP Note Subjective:: Patient is a pleasant 58-year-old female who presents today for follow-up. We are currently treating the patient for sacroiliitis, low back pain, lumbar radiculopathy symptoms, left greater trochanteric bursitis. Today she rates her pain a 4 out of 10. Patient states since her last visit she did have a fall where she fell through her deck and did think that she may have fractured her hip however did imaging and it was all negative. Patient does state that she continues to have pain along her bilateral hips and describes it as an aching, throbbing sensation that is worse with increased activity. She does state the pain interferes with her ability perform activities of daily living such as cooking and cleaning. Patient previously had a left bursa injection back in December that did provide 80% improvement lasting several months up until her fall. She is interested in repeating this injection. Patient is currently prescribed compounding cream and tizanidine 4 mg at night with [place] 5 mg 4 times a day from her primary care provider's office. Patient denies any side effects from these medications. She does state that she needs refills on her compounding cream. Her Tevin has been reviewed and is appropriate. Review of Systems: General: No recent weight changes, no fever, no sleep disturbances Respiratory: No cough, no shortness of air, no recurring pulmonary infections Cardiovascular/peripheral vascular: No chest pain, no palpitations, no edema, no shortness of breath Gastrointestinal: No new onset incontinence, normal bowel movements reported Genitourinary: No new onset incontinence Musculoskeletal: Bilateral hip pain Psychiatric: [Normal mood/affect] Neurological: [Denies weakness in extremities], [denies balance issues] Objective:: Physical Exam: General: Alert and oriented x3, no acute distress, pleasant and cooperative Lungs: Respirations even and unlabored, symmetrical chest expansion Eyes: PERRL Musculoskeletal: Flexion and extension of lumbar [spine] somewhat guarded secondary to pain, [antalgic gait noted] point tenderness along bilateral greater trochanteric bursa's Neurological: Speech clear, no gross sensory deficit Assessment:: Low back pain, lumbar radiculopathy symptoms, bilateral greater trochanteric bursitis, bilateral hip pain Plan:: Patient is experiencing worsening pain in her bilateral hips with limited range of motion. Patient did have point tenderness along her greater trochanteric bursa's bilaterally during today's exam. I have discussed with the patient that she may benefit from bilateral greater trochanteric bursa injections. Risk and benefits were discussed with the patient and she would like to proceed forward with this plan of care. I will also order additional refills on her compounded cream. Patient will be scheduled for bilateral greater trochanteric bursa injections. Patient has been instructed to contact the clinic with any concerns before the next appointment. Dr. Bueno has reviewed this note and agrees with this plan of care. This note was dictated using voice recognition software and make contain errors or omissions. [facility] Disclaimer: The information contained in this section may have been updated after the patient was seen, as this information can be updated by other users. Family History (Updated 01/22/23 @ 13:52 by Blanca Ortiz RN) Other No significant family history Social History Smoking Status: Never smoker second hand exposure: No alcohol intake: never substance use type: denies use current occupational status: other Travel in the last 8 weeks: None household members: spouse housing: house current occupational exposures/hazards: No caffeine: Yes
[2023-09-18 13:10] VITALS: BP 130/74; PULSE 72; RESP 18; O2SAT 96; BMI 28.5
== END ==
PROVIDERS: Visit Provider Nurse Practitioner Family
DX: M51.16 Intervertebral disc disorders with radiculopathy, lumbar region (principal); M54.50 Low back pain, unspecified; M70.60 Trochanteric bursitis, unspecified hip; M25.551 Pain in right hip; M25.552 Pain in left hip
CPT/HCPCS: 99212; G0463

== ENCOUNTER 2023-10-15 10:06 | Day surgery (SDC) | payer OTHER, SELFPAY ==
[2023-10-15 10:14] VITALS: BP 117/75; PULSE 73; RESP 16; TEMP 36.4; O2SAT 98; BMI 28.5
[2023-10-15] MEDS: methylPREDNISolone ACETATE 80MG/ML VIAL 80 MG (10:32)
[2023-10-15 10:33] VITALS: BP 139/50; PULSE 60; RESP 18; O2SAT 98
[2023-10-15] MEDS: BUPIVACAINE 0.25% 10ML INJ 25 MG IJ (10:33)
[2023-10-15] MEDS: LIDOCAINE 1% 5ML PF VIAL 5 ML (10:33)
[2023-10-15 10:34] VITALS: BP 139/50; PULSE 64; RESP 18; O2SAT 98
[2023-10-15 10:38] VITALS: BP 124/65; PULSE 66; RESP 16; O2SAT 98
--- NOTE | 2023-10-15 10:41 | P.PCN_ITS ---
Procedure Date: 10/15/23 Time: 10:30 Anesthesiologist:: Gerardo Thomas CRNA Complications:: None Pre-procedure Diagnosis:: Bilateral trochanteric bursitis Post-procedure Diagnosis:: Same. Indications for Procedure:: Patient's a pleasant 58-year-old female comes our clinic today for bilateral trochanteric bursa injections. She has had both areas injected in the past with significant improvement. She rates her pain today 6/10. Her main complaint is lateral hip pain that she describes as constant, sharp, stabbing. She has extreme point tenderness over the bilateral trochanteric bursa. Procedure Details:: Procedure: Bilateral trochanteric bursa joint injections under fluoroscopy Informed consent was obtained and the risks and benefits of the procedure were explained to the patient.~ The patient was taken to the procedure room and noninvasive monitors were placed including a noninvasive blood pressure cuff and pulse oximeter.~ The patient was placed prone on the procedure table. Both hips were cleansed using Betadine as a cleansing solution. C-arm fluoroscopy was used to view the right trochanteric bursa joint.~ The skin and subcutaneous tissues were anesthetized using lidocaine 1.5% and a 25-gauge needle.~ After this, a 22- gauge spinal needle was inserted under fluoroscopic guidance into the inferior aspect of the right trochanteric bursa.~ Omnipaque dye was injected and good spread was seen throughout the joint.~ After this, approximately 5 mL of bupivacaine, 0.25% and Depo-Medrol, 40 mg was incrementally injected into the right sacroiliac joint. We then moved to the left trochanteric bursa joint.~ The skin and subcutaneous tissues were anesthetized using lidocaine 1.5% and a 25-gauge needle.~ After this, a 22-gauge spinal needle was inserted under fluoroscopic guidance into the inferior aspect of the left trochanteric bursa joint.~ Omnipaque dye was injected and good spread was seen throughout the joint. After this, approximately 5 mL of bupivacaine, 0.25% and Depo-Medrol, 40 mg was incrementally injected into the left sacroiliac joint.~ The patient tolerated the procedure well with no complications. The patient was observed in the Pain Clinic and then was discharged home neurologically intact. Plan and Disposition:: Patient was discharged without incident.
== END 2023-10-15 10:38 | disposition home or self-care (01) ==
PROVIDERS: PCP Internal Medicine Adolescent Medicine; Visit Provider Nurse Anesthetist, Certified Registered
DX: M70.61 Trochanteric bursitis, right hip (principal); M70.62 Trochanteric bursitis, left hip
CPT/HCPCS: 20610; 77002; J1040

== ENCOUNTER 2024-01-15 07:47 | Outpatient (CLI) | payer OTHER, SELFPAY ==
--- NOTE | 2024-01-15 07:51 | MM_ITS ---
PROCEDURE INFORMATION: Exam: MG Bilateral Screening 3D Mammography Exam date and time: 01/15/2024 7:57 AM Age: 58 years old Clinical indication: Screening mammogram TECHNIQUE: Imaging protocol: Bilateral Screening tomosynthesis and 2D mammography including computer-aided detection (CAD) when performed. COMPARISON: 1. MG MM DIG SCREENING MAMM BI W/CAD 12/22/2021 7:58 AM 2. MG MM DIG SCREENING MAMM BI W/CAD 09/22/2019 8:28 AM 3. MG DMSB DIGITAL MAMM-SCREEN BILATERAL 02/14/2012 4:41 PM 4. MG DIGMAMMDX MAMMOGRAM DX-DIRECTOR OF HEMOPHILIA N/C 05/09/2009 4:53 PM FINDINGS: MAMMOGRAPHY: Breast composition: There are scattered areas of fibroglandular density. Mass: None. Architectural distortion: No new or suspicious architectural distortion. Calcifications: No new or suspicious calcifications are present Asymmetric density: No new or suspicious asymmetric density is present Skin thickening: None. Axillary adenopathy: None. IMPRESSION: No mammographic evidence of malignancy. Recommend annual screening mammography unless otherwise clinically indicated. ASSESSMENT: BI-RADS category 1: Negative.
== END 2024-01-15 23:59 ==
LOC: RAD 07:47
PROVIDERS: PCP Nurse Practitioner Family; Visit Provider Nurse Practitioner Family
DX: Z12.31 Encounter for screening mammogram for malignant neoplasm of breast (principal)
CPT/HCPCS: 77063; 77067

== ENCOUNTER 2024-03-18 10:13 | Outpatient (POV) | payer OTHER, SELFPAY ==
[2024-03-18 10:27] VITALS: BP 133/75; PULSE 89; RESP 16; O2SAT 98; BMI 27.9
--- NOTE | 2024-03-18 10:44 | EXP.PAIN.SOA ---
[facility] Pain Management SOAP Note Subjective:: Patient is a pleasant 58-year-old female who presents today for follow-up. Today she rates her pain a 5 out of 10. Patient states that she is experiencing more pain along her left hip however has quite a bit pain throughout her low back and into her buttocks area. Patient denies any new trauma or injury. She does describe it as an aching, throbbing sensation that is worse with certain positioning. Patient states that she often times has to alter the way she sits. Patient states the pain does interfere with her ability perform activities of daily living such as cooking and cleaning. Patient did previously have bilateral trochanteric bursa injections back in September that did provide 70% relief and lasted about 2 months. Patient does states she is interested in an additional injection therapy. She also states that she continues to get excellent relief with her compounded cream along her low back and it does help ease off some of the severity. She is prescribed [place] from an outside provider. Her Tevin has been reviewed and is appropriate. Review of Systems: General: No recent weight changes, no fever, no sleep disturbances Respiratory: No cough, no shortness of air, no recurring pulmonary infections Cardiovascular/peripheral vascular: No chest pain, no palpitations, no edema, no shortness of breath Gastrointestinal: No new onset incontinence, normal bowel movements reported Genitourinary: No new onset incontinence Musculoskeletal: Low back pain, left hip pain Psychiatric: [Normal mood/affect] Neurological: [Denies weakness in extremities], [denies balance issues] Objective:: Physical Exam: General: Alert and oriented x3, no acute distress, pleasant and cooperative Lungs: Respirations even and unlabored, symmetrical chest expansion Eyes: PERRL Musculoskeletal: Flexion and extension of lumbar [spine] somewhat guarded secondary to pain, [antalgic gait noted] point tenderness along bilateral SIs with positive bilateral Alisa's, Devin's, Gaenslen's, compression and distraction exam Neurological: Speech clear, no gross sensory deficit Assessment:: Low back pain, bilateral greater trochanteric bursitis, bilateral sacroiliitis, chronic pain syndrome Plan:: Patient is experiencing worsening pain in her low back and buttocks area. Patient did have extreme point tenderness along her bilateral SIs with positive bilateral Alisa's,'s, Gaenslen's, compression and distraction exam. I did discuss with the patient that she may benefit from bilateral SI injections. Risk and benefits were discussed with the patient and she would like to proceed forward with this plan of care. Patient has continued at home exercising and stretching between injections with no additional relief and has tried and failed conservative treatment. We will schedule the patient for bilateral SI injections under fluoroscopy. Patient has been instructed to contact the clinic with any concerns before the next appointment. Dr. Bueno has reviewed this note and agrees with this plan of care. This note was dictated using voice recognition software and make contain errors or omissions. [facility] Disclaimer: The information contained in this section may have been updated after the patient was seen, as this information can be updated by other users. Family History Other No significant family history Social History Smoking Status: Never smoker second hand exposure: No alcohol intake: never substance use type: denies use current occupational status: other Travel in the last 8 weeks: None household members: spouse housing: house current occupational exposures/hazards: No caffeine: Yes
== END 2024-03-18 23:59 | disposition home or self-care (01) ==
LOC: SC.PAIN 10:13
PROVIDERS: PCP Internal Medicine Adolescent Medicine; Visit Provider Nurse Practitioner Family
DX: M46.1 Sacroiliitis, not elsewhere classified (principal); M54.50 Low back pain, unspecified; M70.61 Trochanteric bursitis, right hip; M70.62 Trochanteric bursitis, left hip; G89.4 Chronic pain syndrome
CPT/HCPCS: 99212; G0463

== ENCOUNTER 2024-04-07 10:41 | Day surgery (SDC) | payer OTHER, SELFPAY ==
[2024-04-07 10:53] VITALS: BP 133/81; PULSE 82; RESP 18; TEMP 36.9; O2SAT 98; BMI 27.9
[2024-04-07] MEDS: BUPIVACAINE 0.25% 10ML INJ 25 MG IJ (10:58)
[2024-04-07 10:59] VITALS: BP 148/80; PULSE 89; RESP 18; O2SAT 100
[2024-04-07] MEDS: LIDOCAINE 1% 5ML PF VIAL 5 ML (10:59)
[2024-04-07] MEDS: methylPREDNISolone ACETATE 80MG/ML VIAL 80 MG (10:59)
--- NOTE | 2024-04-07 10:59 | P.PCN_ITS ---
Procedure Date: 04/07/24 Time: 10:50 Anesthesiologist:: Gerardo Thomas CRNA Complications:: None Pre-procedure Diagnosis:: Bilateral sacroiliitis Post-procedure Diagnosis:: Same Indications for Procedure:: Patient is a pleasant 58-year-old female comes our clinic today for bilateral sacroiliac joint injections of cortisone. Patient is had this in the past with significant improvement terms of her overall low lumbar back pain as well as buttock posterior hip pain bilaterally. She rates her pain today 10. Procedure Details:: Procedure: Bilateral sacroiliac joint injections under fluoroscopy Informed consent was obtained and the risks and benefits of the procedure were explained to the patient.~ The patient was taken to the procedure room and noninvasive monitors were placed including a noninvasive blood pressure cuff and pulse oximeter.~ The patient was placed prone on the procedure table. Both hips were cleansed using Betadine as a cleansing solution. C-arm fluoroscopy was used to view the right sacroiliac joint.~ The skin and subcutaneous tissues were anesthetized using lidocaine 1.5% and a 25-gauge needle.~ After this, a 22-gauge spinal needle was inserted under fluoroscopic guidance into the inferior aspect of the right sacroiliac joint.~ Omnipaque dye was injected and good spread was seen throughout the joint.~ After this, approximately 5 mL of bupivacaine, 0.25% and Depo-Medrol, 40 mg was incrementally injected into the right sacroiliac joint. We then moved to the left sacroiliac joint.~ The skin and subcutaneous tissues were anesthetized using lidocaine 1.5% and a 25-gauge needle.~ After this, a 22- gauge spinal needle was inserted under fluoroscopic guidance into the inferior aspect of the left sacroiliac joint.~ Omnipaque dye was injected and good spread was seen throughout the joint. After this, approximately 5 mL of bupivacaine, 0.25% and Depo-Medrol, 40 mg was incrementally injected into the left sacroiliac joint.~ The patient tolerated the procedure well with no complications. The patient was observed in the Pain Clinic and then was discharged home neurologically intact. Plan and Disposition:: Patient was discharged without incident.
[2024-04-07 11:00] VITALS: BP 148/80; PULSE 80; RESP 18; O2SAT 100
[2024-04-07 11:02] VITALS: BP 148/79; PULSE 68; RESP 18; O2SAT 98
== END 2024-04-07 11:02 | disposition home or self-care (01) ==
PROVIDERS: PCP Internal Medicine Adolescent Medicine; Visit Provider Nurse Anesthetist, Certified Registered
DX: M46.1 Sacroiliitis, not elsewhere classified (principal)
CPT/HCPCS: 27096; G0260; J1010

== ENCOUNTER 2024-04-27 14:40 | Outpatient (POV) | payer OTHER, SELFPAY ==
[2024-04-27 14:45] VITALS: BP 126/80; PULSE 99; RESP 16; O2SAT 97; BMI 26.4
--- NOTE | 2024-04-27 14:59 | EXP.PAIN.SOA ---
[facility] Disclaimer: The information contained in this section may have been updated after the patient was seen, as this information can be updated by other users. Family History Other No significant family history Social History Smoking Status: Never smoker second hand exposure: No alcohol intake: never substance use type: denies use current occupational status: other Travel in the last 8 weeks: None household members: spouse housing: house current occupational exposures/hazards: No caffeine: Yes PM Subjective & Objective Subjective Subjective:: Patient is a pleasant 59-year-old female who presents today for follow-up of bilateral SI injections on 04/07/2024. Today she rates her pain a 7 out of 10. Patient denies any new trauma or injury. She does state that she had about 80% relief following these injections and overall the low back is doing well. Her main complaint today is all along her right hip. She describes this as an aching, throbbing sensation that stays all along that 1 side. She does state the pain interferes with her ability to perform activities of daily living such as cooking and cleaning. Patient states she frequently has to change positions and that she cannot lay on her right hip for long due to the worsening pain. Patient is still using her compounded cream along this area and states that it does still help. Patient is prescribed [place] from an outside provider. Her Tevin has been reviewed and is appropriate. Review of Systems: General: No recent weight changes, no fever, no sleep disturbances Respiratory: No cough, no shortness of air, no recurring pulmonary infections Cardiovascular/peripheral vascular: No chest pain, no palpitations, no edema, no shortness of breath Gastrointestinal: No new onset incontinence, normal bowel movements reported Genitourinary: No new onset incontinence Musculoskeletal: Right hip pain Psychiatric: [Normal mood/affect] Neurological: [Denies weakness in extremities], [denies balance issues] Pain at rest (0-10 scale): 7 Objective Objective:: Physical Exam: General: Alert and oriented x3, no acute distress, pleasant and cooperative Lungs: Respirations even and unlabored, symmetrical chest expansion Eyes: PERRL Musculoskeletal: Flexion and extension of lumbar [spine] somewhat guarded secondary to pain, [antalgic gait noted] point tenderness along left greater trochanteric bursa Neurological: Speech clear, no gross sensory deficit Has patient had previous pain injection?: Yes Percent improvement in pain since last injection: 80% Conservative treatment options previously tried: NSAIDS Length of treatment: Longer than 6 weeks, Home exercise plan Length of treatment: Longer than 6 weeks and Prescription medications Length of treatment: Longer than 6 weeks Meds Home Medications and Allergies Home Medications ?Medication ?Instructions ?Recorded ?Confirmed ?Type celecoxib 200 mg capsule 200 mg PO BID Pain 01/30/21 04/27/24 History levothyroxine 150 mcg tablet 150 mcg PO DAILY HYPOTHYROIDISM 01/30/21 04/27/24 History vilazodone 40 mg tablet 40 mg PO DAILY mood 01/30/21 04/27/24 History bisoprolol 10 2 each PO DAILY High blood pressure 06/19/21 04/27/24 History mg-hydrochlorothiazide 6.25 mg tablet bupropion HCl (smoking deter) 150 150 mg PO DAILY Depression 06/19/21 04/27/24 History mg tablet,12 hr sustained-release(smoking deterrent) esomeprazole magnesium 20 mg 20 mg PO DAILY GERD 06/19/21 04/27/24 History capsule,delayed release methotrexate 2.5 mg/mL oral 12.5 mg PO WEEKLY Pain 06/19/21 04/27/24 History solution semaglutide 0.25 mg or 0.5 mg (2 0.25 mg SQ WEEKLY Diabetes 07/17/21 04/27/24 History mg/1.5 mL) subcutaneous pen injector hydrocodone 5 mg-acetaminophen 325 1 tab PO QID Pain 10/27/21 04/27/24 History mg tablet epinephrine 0.3 mg/0.3 mL 0.3 mg (0.3 mL) IJ ONCE Severe 04/01/22 04/27/24 Rx injection, auto-injector Allergic Reaction #1 ea tizanidine 4 mg tablet (Zanaflex) 4 mg PO TID MUSCLES #90 tabs 10/17/22 04/27/24 Rx tirzepatide 5 mg/0.5 mL 5 mg SQ DIRECTED 03/18/24 04/27/24 History subcutaneous pen injector (Mounjaro) New Prescriptions to Start Prescriptions: Allergies Allergy/AdvReac Type Severity Reaction Status Date / Time lisinopril [LISINOPRIL] Allergy Mild Verified 04/27/24 14:46 nitrofurantoin Allergy Unknown Verified 04/27/24 14:46 [From Macrobid] sulfamethoxazole Allergy Unknown Verified 04/27/24 14:46 [From BACTRIM] trimethoprim [From BACTRIM] Allergy Unknown Verified 04/27/24 14:46 vancomycin [VANCOMYCIN] Allergy Unknown Verified 04/27/24 14:46 Assessment and Plan *Assessment and plan (1) Greater trochanteric bursitis of right hip: Status: Acute Category: Medical Code(s): M70.61 - Trochanteric bursitis, right hip Plan Patient did have significant improvement following her SI injections however is having worsening pain along her right greater trochanteric bursa. Patient did have point tenderness along this area. I did discuss with the patient that she may benefit from a bursa injection. Risk and benefits were discussed with patient and she would like to proceed forward with this plan of care. Patient has tried and failed conservative therapy including continued at home stretching exercise for longer than 6 weeks and between injections. We will submit to insurance for the right greater trochanteric bursa injection under fluoroscopy. Patient has been instructed to contact the clinic with any concerns before the next appointment. Dr. Bueno has reviewed this note and agrees with this plan of care. This note was dictated using voice recognition software and make contain errors or omissions. All injections are used with Lidocaine or Bupivacaine and Depo Medrol.
== END 2024-04-27 23:59 | disposition home or self-care (01) ==
LOC: SC.PAIN 14:40
PROVIDERS: PCP Internal Medicine Adolescent Medicine; Visit Provider Nurse Practitioner Family
DX: M70.61 Trochanteric bursitis, right hip (principal); Z73.89 Other problems related to life management difficulty; Z79.899 Other long term (current) drug therapy
CPT/HCPCS: 99212; G0463

== ENCOUNTER 2024-05-12 10:32 | Day surgery (SDC) | payer OTHER, SELFPAY ==
[2024-05-12 10:46] VITALS: BP 135/84; PULSE 83; RESP 16; O2SAT 98; BMI 26.4
--- NOTE | 2024-05-12 11:15 | EXP.PAIN.PRO ---
Procedure Date: 05/12/24 Time: 11:00 Anesthesiologist:: Gerardo Thomas CRNA Complications:: None Pre-procedure Diagnosis:: Right greater trochanteric bursitis. Post-procedure Diagnosis:: Same. Indications for Procedure:: Patient comes our clinic today for a right trochanteric bursa injection. Patient describes right lateral hip pain as constant, dull, sharp, stabbing. She has extreme point tenderness over the right trochanteric bursa. She rates pain 7/10. She reports having difficulty lying on her right side. Procedure Details:: Procedure: Right trochanteric bursa injection under fluoroscopy We then moved to the right trochanteric bursa.~ C-arm fluoroscopy was used to view the left greater trochanter.~ The skin and subcutaneous tissues overlying the right greater trochanter were anesthetized using lidocaine, 1.5% and a 25-gauge needle.~ After this, a 22-gauge spinal needle was inserted and advanced until it contacted the right greater trochanter.~ Dye was injected and good spread was seen throughout the right trochanteric bursa. After this, approximately 5 mL of bupivacaine, 0.25% and Depo-Medrol, 40 mg was incrementally injected into the right right trochanteric bursa.~ The patient tolerated the procedure well with no complications. Plan and Disposition:: Patient was discharged without incident.
[2024-05-12 11:16] VITALS: BP 133/73; PULSE 78; RESP 16; O2SAT 98
[2024-05-12] MEDS: LIDOCAINE 1% 5ML PF VIAL 5 ML (12:40)
[2024-05-12] MEDS: methylPREDNISolone ACETATE 80MG/ML VIAL 80 MG (12:40)
[2024-05-12] MEDS: BUPIVACAINE 0.25% 10ML INJ 25 MG IJ (12:40)
[2024-05-12 12:43] VITALS: BP 135/90; PULSE 68; RESP 18; O2SAT 99
[2024-05-12 12:48] VITALS: BP 135/90; PULSE 68; RESP 18; O2SAT 99
== END 2024-05-12 11:16 | disposition home or self-care (01) ==
PROVIDERS: PCP Internal Medicine Adolescent Medicine; Visit Provider Nurse Anesthetist, Certified Registered
DX: M70.61 Trochanteric bursitis, right hip (principal)
CPT/HCPCS: 20610; 77002; J1010

== ENCOUNTER 2025-05-11 16:43 | Outpatient (CLI) | payer MEDICARE, SELFPAY ==
--- OUTSIDE RECORDS SUMMARY | 2025-03-30 06:45 | XMS_ITS ---
Author Organization [facility] TRA[facility] Address [address] [facility] [address] [place] [address] Care Team Providers Care Relay Repairer Name Role Phone Malika Lamberto Primary Care Provider [phone] Allergies Allergen (clinical drug ingredient) Drug/Non Drug Allergy documented on EMR Reaction Allergy Type Onset Date Status SULFA (uncoded) burning, blisters Allergy Active lisinopril Lisinopril angioedema Drug Allergy Acti ve nitrofurantoin, macrocrystals / nitrofurantoin, monohydrate Macrobid throat swells, hives Drug Allergy Active vancomycin Vancomycin Unknown Drug Allergy Activ e Results Component Value Reference Range Notes Urinalysis Reviewed date:03/30/2025 11:12:22 AM Interpretation: Performing Lab: Notes/Report: Color/Clarity yellow Leuk neg Nitrite neg Urobili 0.2 Protein neg pH 5.5 Blood trace-intact Sp. Gr. 1.030 Ketone neg Bili neg Glucose neg Microalbumin (In-House) Reviewed date:03/30/2025 11:13:07 AM Interpretation:Abnormal Performing Lab: Notes/Report: Abnormal ALB 80mg CRE 200mg A:C 30-300mg BASIC METABOLIC PANEL ([id number] ) Reviewed date:04/01/2025 09:01:19 AM Interpretation: Performing Lab:[facility], [facility] [id number], [id number] Branden Germain Notes/Report: NON-FASTING GLUCOSE 84 65-99 mg/dL Fasting reference interval UREA NITROGEN (BUN) 18 7-25 mg/dL CREATININE 0.89 0.50-1.03 mg/dL EGFR 76 > OR = 60 mL/min/1.73m2 BUN/CREATININE RATIO SEE NOTE: 6 (calc) Not Reported: BUN and Creatinine are within reference range. SODIUM 141 135-146 mmol/L POTASSIUM 4.6 3.5-5.3 mmol/L CHLORIDE 107 98-110 mmol/L CARBON DIOXIDE 24 20-32 mmol/L CALCIUM 9.7 8.6-10.4 mg/dL REASON FOR VISIT f/u Vicoprofen Medications Medication SIG (Take, Route, Frequency, Duration) Notes Start Date End Date Status Mounjaro 2.5 MG/0.5ML 2.5mg SUBCUTANEOUSLY ONCE A WEEK; Duration: 30 days *Please review and pick correct strength-formulat ion from [employer] options. If intended option is not shown, discontinue and re-order from Quick Search* 12/24/2023 Active HYDROcodone-Ibuprofe n 7.5-200 MG 1 tablet as needed Orally every 6 hrs; Duration: 10 days 03/16/2025 Active Valtrex 1 GM 1 tablet Orally thre e times daily; Duration: 30 days 02/09/2025 Active Erythromycin 5 MG/GM 1 application into the lower eyelid of affected eye Ophthalmic three times a day; Duration: 10 days 02/03/2025 Active Esomeprazole Magnesium 20 MG 1 cap(s) orally once a day; Duration: 90 days Active Moxifloxacin HCl 0.5 % 1 drop into affected eye Ophthalmic four times a day; Duration: 10 days 02/03/2025 Active Viibryd 40 MG TAKE 2 TABLETS BY MOUTH ONCE A DAY; Duration: 90 days Active Methocarbamol 750 MG 1 tablet Orally every 8 hrs; Duration: 30 days As needed 01/17/2025 Active Folic Acid 1 MG 1 tab(s) orally once a day; Duration: 90 days Active Simvastatin 20 MG 1 tab(s) orally once a day (in the evening); Duration: 90 days Active buPROPion HCl ER (XL) 300 MG 1 tab(s) orally every 24 hours; Duration: 90 days Active Methotrexate 2.5 MG 5 TABS ONCE A WEEK ORALLY ONCE A WEEK; Duration: 100 DAYS *Please review and pick correct strength-formulat ion from [employer] options. If intended option is not shown, discontinue and re-order from Quick Search* Active Levothyroxine Sodium 125 MCG 1 tab(s) orally once a day; Duration: 90 days Active ONE TOUCH TEST STRIPS N/A FOR DIABETIC TESTING FINGERSTICK ONCE DAILY; Duration: 30 DAYS *Please review for potential replacement for e-prescription and drug interaction check* 01/03/2022 Active Vital Signs Temperature 98.4 degrees Fahrenheit 03/30/20 25 Blood pressure systolic 98 mm Hg 03/30/20 25 Blood pressure diastolic 62 mm Hg 025 Heart Rate 78 /min 03/30/2025 Height 62 in 03/30/2025 Weight 122 lbs 03/30/2025 BMI 22.31 kg/m2 03/30/2025 Encounters Encounter Location Date Provider Diagnosis [address] [address] 03/30/2025 Lamberto Daly Diabetes mellitus ty pe 2, noninsulin dependent E11.9 ; Chronic inflammatory arthritis M19.90 ; Trochanteric bursitis, left hip M70.62 and Urinary frequency R35.0 Assessments Encounter Date Diagnosis (ICD Code) Assessment Notes Treatment Notes Treatment Clinical Notes Section Notes 03/30/2025 Diabetes mellitus type 2, noninsulin dependent (ICD-10 - E11.9) Overall doing well. Check BMP and microalbumin today. Will reduce Mounjaro down to 2.5 given her weight loss. She reports that when she is not on it it does cause sugar elevation. r 03/30/2025 Chronic inflammatory arthritis (ICD-10 - M19.90) Has done much better switching over to Vicoprofen therapy. Will check kidney function today. I told her that 200 mg of ibuprofen today should be okay for her kidneys and we will stop the other NSAIDs. r 03/30/2025 Trochanteric bursitis, left hip (ICD-10 - M70.62) r 03/30/2025 Urinary frequency (ICD-10 - R35.0) r Plan Of Treatment Medication Medication Name Sig Start Date Stop Date Notes Mounjaro 2.5 MG/0.5ML 2.5mg SUBCUTANEOUSLY ONCE A WEEK; Duration: 30 days 12/24/2023 *Please review and pick correct strength-formulation from [employer] options. If intended option is not shown, discontinue and re-order from Quick Search* Celecoxib 200 MG TAKE ONE CAPSULE BY MOUTH TWICE DAILY - TAKE WITH FOOD- HYDROcodone-Acetamin ophen 5-325 MG 1 tab(s) orally four times a day 03/01/2025 Treatment Notes Assessment Notes Diabetes mellitus type 2, no ninsulin dependent Overall doing well. Check BMP and microalbumin today. Will reduce Mounjaro down to 2.5 given her weight loss. She reports that when she is not on it it does cause sugar elevation. Chronic inflammatory arthritis Has done much better switching over to Vicoprofen therapy. Will check kidney function today. I told her that 200 mg of ibuprofen today should be okay for her kidneys and we will stop the other NSAIDs. Next Appt Details Follow Up: prn, Reason: Progress Notes * RITCHIEAnu RDOB:1964 (59 yo F)Acc No.[id number]:03/30/2025 Progress Notes Patient: Anu MCCAIN Provider: Lynnette Daly MD :1965 A ge:59 Y S ex:Female Date:03/30/2025 Address:[address] [place] [address], [place], [id number] Subjective: * Chief Complaints: * 1 . f/u Vicoprofen. * HPI: g en: Here to follow-up her pain management given her rheumatoid arthritis issues. Is off methotrexate because of her ocular shingles. 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 We recently switched over to Vicoprofen from hydrocodone/Tylenol and she reports that it is much better. She is little concerned about the renal effects from the ibuprofen but she has been taking only 1 or 2 tablets twice a day. * Medical History: H ypothyroidism, Hyperlipidemia, delivery 1993, PAH 2000, Exploratory Lap-removal of adhesions, BSO 2007, Cystoscopy 1993, 2005, Lithotripsy 2002, Fracture right elbow 2006, Left ovary removed 2007, Diabetes, Pyelonephritis, Nephrolithiasis, Lupus, Normal mamm 09/17 and 11/2021, Negative Cologuard 01/2024. * Surgical History: h ysterectomy , , kidney stone x 5 , abd. x 5 for oopherectomy . * Hospitalization/Major Diagno stic Procedure: D enies Past Hospitalization. * Family History: F ather: , ALS. M other: alive, diagnosed with Diabetes, Hypertension, Heart Disease. P aternal Grand Father: . P aternal Grand Mother: . M aternal Grand Father: . M aternal Grand Mother: . P aternal uncle: . M aternal aunt: alive, diagnosed with Hypertension, Mental Illness. C kait: alive. 1 son(s) , 1 daughter(s) - healthy. . N on-Contributory. * Social History: S moking A re you a:: nonsmoker. R ecreational drug use: no. Exercise: yes. Home smoke detector use: yes. Caffeine: yes, frequency: 2-3 Diet Mt Dew. Living Will: No. Alcohol: no. Travel outside [place]: no. 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 * Medications: T aking ONE TOUCH TEST STRIPS N/A N/A FOR DIABETIC TESTING FINGERSTICK ONCE DAILY , Notes to Pharmacist: *Please review for potential replacement for e-prescription and drug interaction check*, Taking Levothyroxine Sodium 125 MCG Tablet 1 tab(s) orally once a day , Taking Mounjaro 5 MG/0.5 ML SOLUTION DIRECTED SUBCUTANEOUSLY ONCE A WEEK , Notes to Pharmacist: *Please review and pick correct strength-formulation from [employer] options. If intended option is not shown, discontinue and re-order from Quick Search*, Taking buPROPion HCl ER (XL) 300 MG Tablet Extended Release 24 Hour 1 tab(s) orally every 24 hours , Taking Methotrexate 2.5 MG TABLET 5 TABS ONCE A WEEK ORALLY ONCE A WEEK , Notes to Pharmacist: *Please review and pick correct strength-formulation from [employer] options. If intended option is not shown, discontinue and re-order from Quick Search*, Taking Folic Acid 1 MG Tablet 1 tab(s) orally once a day , Taking Simvastatin 20 MG Tablet 1 tab(s) orally once a day (in the evening) , Taking Esomeprazole Magnesium 20 MG Capsule Delayed Release 1 cap(s) orally once a day , Taking Celecoxib 200 MG Capsule TAKE ONE CAPSULE BY MOUTH TWICE DAILY - TAKE WITH FOOD- , Taking Methocarbamol 750 MG Tablet 1 tablet Orally every 8 hrs As needed, Taking Viibryd 40 MG Tablet TAKE 2 TABLETS BY MOUTH ONCE A DAY , Taking Moxifloxacin HCl 0.5 % Solution 1 drop into affected eye Ophthalmic four times a day , Taking Erythromycin 5 MG/GM Ointment 1 application into the lower eyelid of affected eye Ophthalmic three times a day , Taking Valtrex 1 GM Tablet 1 tablet Orally three times daily , Taking HYDROcodone-Acetaminophen 5-325 MG Tablet 1 tab(s) orally four times a day , Taking HYDROcodone-Ibuprofen 7.5-200 MG Tablet 1 tablet as needed Orally every 6 hrs , Discontinued Bisoprolol Fumarate 5 MG Tablet 1/2 tab - 1 tab orally once a day , Discontinued predniSONE 20 MG Tablet 3 tabs orally once a day for two days, then 2 daily for 2 days, then one daily for two days , Medication List reviewed and reconciled with the patient * Allergies: M acrobid: throat swells, hives - Side Effects, SULFA: burning, blisters - Side Effects, Vancomycin, Lisinopril: angioedema - Allergy. Objective: * Vitals: N urse: dw, Pain: 4, Temp: 98.4, RR: 16, HR: 78, BP: 98/62, Ht: 62, Wt: 122, BMI:22.31. * Examination: G eneral Examination: W eight loss noted. Vital signs good, sclera look pretty clear today. Heart rate regular, lungs clear. Walks well. Still with some hip pain on rotational exams. Assessment: * Assessment: 1. D iabetes mellitus type 2, noninsulin dependent - E11.9 (Primary) 2 . C hronic inflammatory arthritis - M19.90 3 . T rochanteric bursitis, left hip - M70.62 4 . U rinary frequency - R35.0 r Plan: * Treatment: Value Reference Range G LUCOSE 84 65-99 - mg/dL * U KRISSY NITROGEN (BUN) 18 7-25 - mg/dL * C REATININE 0.89 0.50-1.03 - mg/dL * B UN/CREATININE RATIO SEE NOTE: 03-21 - (calc) * S ODIUM 141 135-146 - mmol/L * P OTASSIUM 4.6 3.5-5.3 - mmol/L * C HLORIDE 107 98-110 - mmol/L * C ARBON DIOXIDE 24 20-32 - mmol/L * C ALCIUM 9.7 8.6-10.4 - mg/dL * E GFR 76 > OR = 60 - mL/min/1 .73m2 * This lab was reviewed by Yasmine Hendricks on 04/01/2025 at 09:01 AM EDT ?LAB: Microalbumin (In-House) (Collection Date & Time - 03/30/2025)?Abnormal * Value Reference Range A LB 80mg * C RE 200mg * A :C 30-300mg Notes: Overall doing well. Check BMP and microalbumin today. Will reduce Mounjaro down to 2.5 given her weight loss. She reports that when she is not on it it does cause sugar elevation.?? 2.?Chronic inflammatory arthritis? Stop Celecoxib Capsule, 200 MG, TAKE ONE CAPSULE BY MOUTH TWICE DAILY - TAKE WITH FOOD-;?Stop HYDROcodone-Acetaminophen Tablet, 5-325 MG, 1 tab(s), orally, four times a day.?LAB: BASIC METABOLIC PANEL (41852)* Value Reference Range G LUCOSE 84 65-99 - mg/dL * U KRISSY NITROGEN (BUN) 18 7-25 - mg/dL * C REATININE 0.89 0.50-1.03 - mg/dL * B UN/CREATININE RATIO SEE NOTE: 6-22 - (calc) * S ODIUM 141 135-146 - mmol/L * P OTASSIUM 4.6 3.5-5.3 - mmol/L * C HLORIDE 107 98-110 - mmol/L * C ARBON DIOXIDE 24 20-32 - mmol/L * C ALCIUM 9.7 8.6-10.4 - mg/dL * E GFR 76 > OR = 60 - mL/min/1 .73m2 * This lab was reviewed by Yasmine Hendricks on 04/01/2025 at 09:01 AM EDT Notes: Has done much better switching over to Vicoprofen therapy. Will check kidney function today. I told her that 200 mg of ibuprofen today should be okay for her kidneys and we will stop the otherNSAIDs.??3.?Urinary frequency?LAB: Urinalysis (Collection Date & Time - 03/30/2025)* Value Reference Range C olor/Clarity yellow * L euk neg * N itrite neg * U robili 0.2 * P rotein neg * p H 5.5 * B lood trace-intact * S p. Gr. 1.030 * K etone neg * B silke neg * G lucose neg * Procedure Codes: 8 1002 URINALYSIS, Modifiers: QW , 06953 MICROALBUMIN, URINE, Modifiers: QW , G2211 Complex e/m visit add on * Follow Up: p rn * * Sign off status: Completed true * Provider: Lynnette Daly MD Date: 0 03/30/2025 Generated for Printi ng/Faxing/eTransmitting on: 0 05/11/2025 04:46 PM EDT History and Physical Notes * HPI (History of Present Illness) Category Sub-Category Detail Notes Category Not es gen Here to follow-up her pain management given her rheumatoid arthritis issues. Is off methotrexate because of her ocular shingles. 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 We recently switched over to Vicoprofen from hydrocodone/Tylenol and she reports that it is much better. She is little concerned about the renal effects from the ibuprofen but she has been taking only 1 or 2 tablets twice a day. Examination Category Sub-Category Detail Notes Category Not es General Examination Weight loss noted. Vital signs good, sclera look pretty clear today. Heart rate regular, lungs clear. Walks well. Still with some hip pain on rotational exams
--- OUTSIDE RECORDS SUMMARY | 2025-05-03 06:15 | XMS_ITS ---
Author Organization [facility] Address [address] [place] [address] Care Team Providers Care Trainman Name Role Phone Lamberto Daly Primary Care Provider Sherri Roche Unavailable [phone] REASON FOR VISIT order Encounters Encounter Location Date Provider Diagnosis [facility] [address] [address] 05/03/2025 Sherri Roche Screening mammogram for breast cancer Z12.31 Assessments Encounter Date Diagnosis (ICD Code) Assessment Notes Treatment Notes Treatment Clinical Notes Section Notes 05/03/2025 Screening mammogram for breast cancer (ICD-10 - Z12.31) re Plan Of Treatment Pending Test Test Name Order Date Mammogram : Bilateral 05/03/2025 Progress Notes * CHAUPrashantAnu RDOB:1964 (60 yo F)Acc No.[id number]:05/03/2025 Patient: Anu MCCAIN :1965 A ge:60 Y S ex:Female [address] [place] [address] Subjective: * Chief Complaints: * O rder * Medical History: * Surgical History: * Hospitalization/Major Diagno stic Procedure: * Medications: Objective: * Vitals: * Physical Examination: Assessment: * Assessment: 1. S creening mammogram for breast cancer - Z12.31 (Primary) re Plan: * Treatment: * * Procedure Codes: * true * Date: Generated for Qamar dill/[place] on: 0 05/11/2025 04:46 PM EDT
--- OUTSIDE RECORDS SUMMARY | 2025-05-11 16:46 | XMS_ITS | Patient Health Record ---
Author Organization [facility] Address [address] [place], [place] [address] Care Team Providers Care Loan Service Officer Name Role Phone Lamberto Daly Primary Care Provider Cathy Bright Unavailable [phone] Sherri Roche Unavailable [phone] Migration, Provider Unavailable Unavailable Allergies Allergen (clinical drug ingredient) Drug/Non Drug Allergy documented on EMR Reaction Allergy Type Onset Date Status SULFA (uncoded) burning, blisters Allergy Active lisinopril Lisinopril angioedema Drug Allergy Acti ve nitrofurantoin, macrocrystals / nitrofurantoin, monohydrate Macrobid throat swells, hives Drug Allergy Active vancomycin Vancomycin Unknown Drug Allergy Activ e Results Component Value Reference Range Notes VITAMIN B12 (927) Reviewed date:01/18/2025 03:05:03 PM Interpretation: Performing Lab:SHANITA, [employer] [address], EmboMedicsHcvrJZ[address] Branden Germain Notes/Report: NON-FASTING; NON-FASTING; NON-FASTING; NON-FASTING; NON-FAST FASTING:YES FASTING: YES VITAMIN B12 337 592-1900 pg/mL HEMOGLOBIN A1c (496) Reviewed date:01/18/2025 03:05:03 PM Interpretation: Performing Lab:SHANITA, [employer] [address], EmboMedicsEtzwOF[address] Branden Germain Notes/Report: NON-FASTING; NON-FASTING; NON-FASTING; NON-FASTING; NON-FAST FASTING:YES FASTING: YES HEMOGLOBIN A1c 5.1 <5.7 % 5.7-6.4% Consistent with increased risk for diabetes For the purpose of screening for the presence of diabetes: <5.7% Consistent with the absence of diabetes (prediabetes) > or =6.5% Consistent with diabetes This assay result is consistent with a decreased risk of diabetes. Currently, no consensus exists regarding use of hemoglobin A1c for diagnosis of diabetes in children. According to [place] Diabetes Association (ADA) guidelines, hemoglobin A1c <7.0% represents optimal control in non- diabetic patients. Different metrics may apply to specific patient populations. Standards of Medical Care in Diabetes(ADA). COMPREHENSIVE METABOLIC PANE L (17404) Reviewed date:01/18/2025 03:05:03 PM Interpretation: Performing Lab:SHANITA [employer] [facility] Charlese13[address] [facility], Hector CharlesCtcuQS[address] Branden Germain Notes/Report: NON-FASTING; NON-FASTING; NON-FASTING; NON-FASTING; NON-FAST FASTING:YES FASTING: YES GLUCOSE 83 65-99 mg/dL Fasting reference interval UREA NITROGEN (BUN) 16 7-25 mg/dL CREATININE 0.96 0.50-1.03 mg/dL EGFR 69 > OR = 60 mL/min/1.73m2 BUN/CREATININE RATIO SEE NOTE: 6-22 (calc) Not Reported: BUN and Creatinine are within reference range. SODIUM 142 135-146 mmol/L POTASSIUM 4.8 3.5-5.3 mmol/L CHLORIDE 107 98-110 mmol/L CARBON DIOXIDE 27 20-32 mmol/L CALCIUM 9.4 8.6-10.4 mg/dL PROTEIN, TOTAL 6.6 6.1-8.1 g/dL ALBUMIN 4.4 3.6-5.1 g/dL GLOBULIN 2.2 1.9-3.7 g/dL (calc) ALBUMIN/GLOBULIN RATIO 2.0 1.0-2.5 (calc) BILIRUBIN, TOTAL 0.3 0.2-1.2 mg/dL ALKALINE PHOSPHATASE 53 37-153 U/L AST 18 10-35 U/L ALT 15 6-29 U/L Rapid Covid/Flu A-B Combo Reviewed date:11/04/2024 05:51:51 PM Interpretation: Performing Lab: Notes/Report: Rapid Covid negative Flu A negative Flu B negative LIPID PANEL, STANDARD (7600) Reviewed date:08/04/2024 02:24:35 PM Interpretation: Performing Lab:SHANITA [facility] Re[address] [facility]eThe [facility], [facility] HospitalBcshYB[address] Branden Germain Notes/Report: NON-FASTING; NON-FASTING; NON-FASTING; NON-FASTING; NON-FAST FASTING:YES FASTING: YES CHOLESTEROL, TOTAL 229 <200 mg/dL HDL CHOLESTEROL 63 > OR = 50 mg/dL TRIGLYCERIDES 247 <150 mg/dL If a non-fasting specimen was collected, consider repeat triglyceride testing on a fasting specimen if clinically indicated. Mary Kay et al. J. of Clin. Lipidol. 2015;9:129-169. LDL-CHOLESTEROL 126 Reference range: <100 Desirable range <100 mg/dL for primary prevention; <70 mg/dL for patients with CHD or diabetic patients with > or = 2 CHD risk factors. LDL-C is now calculated using the Per-Citlaly calculation, which is a validated novel method providing better accuracy than the Friedewald equation in the estimation of LDL-C. Per SS et al. VICTOR HUGO. 2013;310(19): 1297-7592 (http://education.[employer].Yuanfen~Flow™/faq/FAQ16 4) CHOL/HDLC RATIO 3.6 <5.0 (calc) NON HDL CHOLESTEROL 166 <130 mg/dL (calc) For patients with diabetes plus 1 major ASCVD risk factor, treating to a non-HDL-C goal of <100 mg/dL (LDL-C of <70 mg/dL) is considered a therapeutic option. COMPREHENSIVE METABOLIC PANElton Ornelas (32429) Reviewed date:08/04/2024 02:24:35 PM Interpretation: Performing Lab:SHANITA [employer] [address] [facility], Lakeview HospitalDvitQG[address] Branden Germain Notes/Report: NON-FASTING; NON-FASTING; NON-FASTING; NON-FASTING; NON-FAST FASTING:YES FASTING: YES GLUCOSE 81 65-99 mg/dL Fasting reference interval UREA NITROGEN (BUN) 14 7-25 mg/dL CREATININE 0.92 0.50-1.03 mg/dL EGFR 73 > OR = 60 mL/min/1.73m2 BUN/CREATININE RATIO SEE NOTE: 6-22 (calc) Not Reported: BUN and Creatinine are within reference range. SODIUM 143 135-146 mmol/L POTASSIUM 4.4 3.5-5.3 mmol/L CHLORIDE 107 98-110 mmol/L CARBON DIOXIDE 28 20-32 mmol/L CALCIUM 9.3 8.6-10.4 mg/dL PROTEIN, TOTAL 6.5 6.1-8.1 g/dL ALBUMIN 3.9 3.6-5.1 g/dL GLOBULIN 2.6 1.9-3.7 g/dL (calc) ALBUMIN/GLOBULIN RATIO 1.5 1.0-2.5 (calc) BILIRUBIN, TOTAL 0.3 0.2-1.2 mg/dL ALKALINE PHOSPHATASE 51 37-153 U/L AST 16 10-35 U/L ALT 14 6-29 U/L CBC (INCLUDES DIFF/PLT) (639 9) Reviewed date:08/04/2024 02:24:35 PM Interpretation: Performing Lab:SHANITA, [facility]1355 [facility], [facility] [place] HospitalSicsBG[address] Branden Germain Notes/Report: NON-FASTING; NON-FASTING; NON-FASTING; NON-FASTING; NON-FAST FASTING:YES FASTING: YES WHITE BLOOD CELL COUNT 8.6 3.8-10.8 Thousand/ uL RED BLOOD CELL COUNT 4.43 3.80-5.10 Million/uL HEMOGLOBIN 13.5 11.7-15.5 g/dL HEMATOCRIT 42.0 35.0-45.0 % MCV 94.8 80.0-100.0 fL MCH 30.5 27.0-33.0 pg MCHC 32.1 32.0-36.0 g/dL For adults, a slight decrease in the calculated MCHC value (in the range of 30 to 32 g/dL) is most likely not clinically significant; however, it should be interpreted with caution in correlation with other red cell parameters and the patient's clinical condition. RDW 14.6 11.0-15.0 % PLATELET COUNT 399 140-400 Thousand/uL MPV 8.3 7.5-12.5 fL ABSOLUTE NEUTROPHILS 4627 8065-2038 cells/uL ABSOLUTE LYMPHOCYTES 3139 850-3900 cells/uL ABSOLUTE MONOCYTES 499 200-950 cells/uL ABSOLUTE EOSINOPHILS 275 15-500 cells/uL ABSOLUTE BASOPHILS 60 0-200 cells/uL NEUTROPHILS 53.8 LYMPHOCYTES 36.5 MONOCYTES 5.8 EOSINOPHILS 3.2 BASOPHILS 0.7 HEMOGLOBIN A1c (496) Reviewed date:08/04/2024 02:24:35 PM Interpretation: Performing Lab:SHANITA [employer] [address] [facility], [facility] [place] HospitalZoyuOP[address] Branden Germain Notes/Report: NON-FASTING; NON-FASTING; NON-FASTING; NON-FASTING; NON-FAST FASTING:YES FASTING: YES HEMOGLOBIN A1c 5.3 <5.7 % of total Hgb For the purpose of screening for the presence of diabetes: <5.7% Consistent with the absence of diabetes 5.7-6.4% Consistent with increased risk for diabetes (prediabetes) > or =6.5% Consistent with diabetes This assay result is consistent with a decreased risk of diabetes. Currently, no consensus exists regarding use of hemoglobin A1c for diagnosis of diabetes in children. According to [place] Diabetes Association (ADA) guidelines, hemoglobin A1c <7.0% represents optimal control in non- diabetic patients. Different metrics may apply to specific patient populations. Standards of Medical Care in Diabetes(ADA). VITAMIN B12 (927) Reviewed date:08/04/2024 02:24:35 PM Interpretation: Performing Lab:SHANITA [employer]se[address] [facility] [facility], [facility] [place] HospitalJnvcWX[address] Branden Germain Notes/Report: NON-FASTING; NON-FASTING; NON-FASTING; NON-FASTING; NON-FAST FASTING:YES FASTING: YES VITAMIN B12 220 247-9140 pg/mL TSH W/REFLEX TO FT4 (31225) Reviewed date:08/04/2024 02:24:35 PM Interpretation: Performing Lab:SHANITA [employer]-[facility]se[address] [facility], [facility] HospitalQsatRA[address] Branden Germain Notes/Report: NON-FASTING; NON-FASTING; NON-FASTING; NON-FASTING; NON-FAST FASTING:YES FASTING: YES NON-FASTING; NON-FASTING; NON-FASTING; NON-FASTING; NON-FAST FASTING:YES FASTING: YES TSH W/REFLEX TO FT4 0.34 0.40-4.50 mIU/L T4, FREE 1.2 0.8-1.8 ng/dL VITAMIN D,25-OH,TOTAL,IA (17 306) Reviewed date:08/04/2024 02:24:35 PM Interpretation: Performing Lab:SHANITA [employer] Jfsp5692 TagbrandBryn [facility]awr Hospital[address] Branden Germain Notes/Report: NON-FASTING; NON-FASTING; NON-FASTING; NON-FASTING; NON-FAST FASTING:YES FASTING: YES VITAMIN D,25-OH,TOTAL,IA 36 30-100 ng/mL Vitamin D Status 25-OH Vitamin D: Deficiency: <20 ng/mL Insufficiency: 20 - 29 ng/mL Optimal: > or = 30 ng/mL For 25-OH Vitamin D testing on patients on D2-supplementation and patients for whom quantitation of D2 and D3 fractions is required, the QuestAssureD(TM) 25-OH VIT D, (D2,D3), LC/MS/MS is recommended: order code 53326 (patients >2yrs). See Note 1 Note 1 For additional information, please refer to http://TakeCare/faq/PFA442 (This link is being provided for informational/ educational purposes only.) LIPID PANEL, STANDARD (7600) Reviewed date:01/18/2025 03:05:03 PM Interpretation: Performing Lab:SHANITA [employer] Rgdo9390 TagbrandBryn Mawr Hospital[address] Branden Germain Notes/Report: NON-FASTING; NON-FASTING; NON-FASTING; NON-FASTING; NON-FAST FASTING:YES FASTING: YES CHOLESTEROL, TOTAL 250 <200 mg/dL HDL CHOLESTEROL 61 > OR = 50 mg/dL TRIGLYCERIDES 187 <150 mg/dL LDL-CHOLESTEROL 157 Reference range: <100 Desirable range <100 mg/dL for primary prevention; <70 mg/dL for patients with CHD or diabetic patients with > or = 2 CHD risk factors. LDL-C is now calculated using the Gm calculation, which is a validated novel method providing better accuracy than the Friedewald equation in the estimation of LDL-C. Per LEE et al. VICTOR HUGO. 2013;310(19): 0040-3298 (http://educationAkesoGenX/faq/FAQ16 4) CHOL/HDLC RATIO 4.1 <5.0 (calc) NON HDL CHOLESTEROL 189 <130 mg/dL (calc) For patients with diabetes plus 1 major ASCVD risk factor, treating to a non-HDL-C goal of <100 mg/dL (LDL-C of <70 mg/dL) is considered a therapeutic option. CBC (INCLUDES DIFF/PLT) (639 9) Reviewed date:01/18/2025 03:05:03 PM Interpretation: Performing Lab:SHANITA [employer] [address], ThryveUogsOG[address] Branden Germain Notes/Report: NON-FASTING; NON-FASTING; NON-FASTING; NON-FASTING; NON-FAST FASTING:YES FASTING: YES WHITE BLOOD CELL COUNT 9.1 3.8-10.8 Thousand/ uL RED BLOOD CELL COUNT 4.15 3.80-5.10 Million/uL HEMOGLOBIN 12.4 11.7-15.5 g/dL HEMATOCRIT 40.5 35.0-45.0 % MCV 97.6 80.0-100.0 fL MCH 29.9 27.0-33.0 pg MCHC 30.6 32.0-36.0 g/dL For adults, a slight decrease in the calculated MCHC value (in the range of 30 to 32 g/dL) is most likely not clinically significant; however, it should be interpreted with caution in correlation with other red cell parameters and the patient's clinical condition. RDW 16.4 11.0-15.0 % PLATELET COUNT 379 140-400 Thousand/uL MPV 8.1 7.5-12.5 fL ABSOLUTE NEUTROPHILS 6889 5489-8803 cells/uL ABSOLUTE LYMPHOCYTES 7047 826-4927 cells/uL ABSOLUTE MONOCYTES 300 200-950 cells/uL ABSOLUTE EOSINOPHILS 191 15-500 cells/uL ABSOLUTE BASOPHILS 64 0-200 cells/uL NEUTROPHILS 75.7 LYMPHOCYTES 18.2 MONOCYTES 3.3 EOSINOPHILS 2.1 BASOPHILS 0.7 SED RATE BY MODIFIED CHEMO THACKER (624) Reviewed date:01/18/2025 03:05:03 PM Interpretation: Performing Lab:SHANITA [employer] [address], EmboMedicsObvpMQ[address] Branden Germain Notes/Report: NON-FASTING; NON-FASTING; NON-FASTING; NON-FASTING; NON-FAST FASTING:YES FASTING: YES SED RATE BY MODIFIED WESTERGREN 11 < OR = 30 mm/h C-REACTIVE PROTEIN (4420) Reviewed date:01/18/2025 03:05:03 PM Interpretation: Performing Lab:SHANITA [employer] [address] [facility], [facility] [place] HospitalWauqUX[address] Branden Germain Notes/Report: NON-FASTING; NON-FASTING; NON-FASTING; NON-FASTING; NON-FAST FASTING:YES FASTING: YES C-REACTIVE PROTEIN 3.0 <8.0 mg/L TSH W/REFLEX TO FT4 (39823) Reviewed date:01/18/2025 03:05:03 PM Interpretation: Performing Lab:SHANITA [employer] Rmbp[address] [facility], [facility] [place] HospitalIqpaVE[address] Branden Germain Notes/Report: NON-FASTING; NON-FASTING; NON-FASTING; NON-FASTING; NON-FAST FASTING:YES FASTING: YES TSH W/REFLEX TO FT4 2.43 0.40-4.50 mIU/L Urinalysis Reviewed date:03/30/2025 11:12:22 AM Interpretation: Performing Lab: Notes/Report: Color/Clarity yellow Leuk neg Nitrite neg Urobili 0.2 Protein neg pH 5.5 Blood trace-intact Sp. Gr. 1.030 Ketone neg Bili neg Glucose neg Microalbumin (In-House) Reviewed date:03/30/2025 11:13:07 AM Interpretation:Abnormal Performing Lab: Notes/Report: Abnormal ALB 80mg CRE 200mg A:C 30-300mg BASIC METABOLIC PANEL (58542 ) Reviewed date:04/01/2025 09:01:19 AM Interpretation: Performing Lab:SHANITA [employer] Em[address] [facility], [facility] [place] HospitalSpvxKR[address] Branden Germain Notes/Report: NON-FASTING GLUCOSE 84 65-99 mg/dL Fasting reference interval UREA NITROGEN (BUN) 18 7-25 mg/dL CREATININE 0.89 0.50-1.03 mg/dL EGFR 76 > OR = 60 mL/min/1.73m2 BUN/CREATININE RATIO SEE NOTE: 6-22 (calc) Not Reported: BUN and Creatinine are within reference range. SODIUM 141 135-146 mmol/L POTASSIUM 4.6 3.5-5.3 mmol/L CHLORIDE 107 98-110 mmol/L CARBON DIOXIDE 24 20-32 mmol/L CALCIUM 9.7 8.6-10.4 mg/dL Medications Medication SIG (Take, Route, Frequency, Duration) Notes Start Date End Date Status Valtrex 1 GM 1 tablet Orally thre e times daily; Duration: 90 days 02/09/2025 Active Amoxicillin-Pot Clavulanate 875-125 MG 1 tablet Orally every 12 hrs; Duration: 7 days 04/06/2025 Active HYDROcodone-Ibuprofe n 7.5-200 MG 1 tablet as needed Orally every 6 hrs; Duration: 30 days 05/06/2025 Active ONE TOUCH TEST STRIPS N/A FOR DIABETIC TESTING FINGERSTICK ONCE DAILY; Duration: 30 DAYS *Please review for potential replacement for e-prescription and drug interaction check* 01/03/2022 Active Viibryd 40 MG TAKE 2 TABLETS BY MOUTH ONCE A DAY; Duration: 90 days Active Levothyroxine Sodium 125 MCG 1 tab(s) orally once a day; Duration: 90 days Active Methocarbamol 750 MG 1 tablet Orally every 8 hrs; Duration: 30 days As needed 01/17/2025 Active Mounjaro 2.5 MG/0.5ML 2.5mg SUBCUTANEOUSLY ONCE A WEEK; Duration: 30 days *Please review and pick correct strength-formulat ion from MakeSpace options. If intended option is not shown, discontinue and re-order from Quick Search* 12/24/2023 Active Esomeprazole Magnesium 20 MG 1 cap(s) orally once a day; Duration: 90 days Active Folic Acid 1 MG 1 tab(s) [...] review and pick correct strength-formulat ion from MakeSpace options. If intended option is not shown, discontinue and re-order from Quick Search* Active Moxifloxacin HCl 0.5 % 1 drop into affected eye Ophthalmic four times a day; Duration: 10 days 02/03/2025 Active Erythromycin 5 MG/GM 1 application into the lower eyelid of affected eye Ophthalmic three times a day; Duration: 10 days 02/03/2025 Active Immunizations Vaccine Route Administration Date Status Comme nts Adacel (Tdap) IM Intramuscular 03/28/2017 Administered Boostrix IM Intramuscular 12/27/2021 Administered Flublok IM Intramuscular 07/25/2020 Administered Flublok IM Intramuscular 08/18/2021 Administered Flublok IM Intramuscular 07/17/2022 Administered Fluvirin--Influenza vaccine 3+ year IM Intramuscular 08/07/2010 Administered FLUZONE 6MO - OLDER IM Intramuscular 07/30/2023 Administer ed FLUZONE 6MO - OLDER IM Intramuscular 08/03/2024 Administer ed PPD SC Subcutaneous 03/01/2011 Administered Prevnar PCV-13 (Pneumococcal conjugate 13) IM Intramuscular 08/09/2016 Administered Tetanus Toxoid IM Intramuscular 10/02/2010 Administered ZZ Unknown 12/13/2006 Administered Problems Problem Type SNOMED Code ICD Code Onset Dates Problem Status W/U Status Risk Notes Problem Mixed hyperlipidemia (526780210) Mixed hyperlipidemia (E78.2) Active confirmed Problem Primary insomnia (4684179) Primary insomnia (F51.01) Active confirmed Problem Chronic pain (56278905) Other chronic pain (G89.29) Active confirmed Problem Rheumatoid arthritis (56089586) Rheumatoid arthritis with rheumatoid factor of right hand without organ or systems involvement (M05.741) Active confirmed Problem Trochanteric bursitis of left hip (516976182903222) Trochanteric bursitis, left hip (M70.62) Active confirmed Problem Long-term current use of drug therapy (876403361) Other care home (current) drug therapy (Z79.899) Active confirmed Problem Mixed anxiety and depressive disorder (661490854) Depression with anxiety (F41.8) Active confirmed Problem Hypothyroidism (08332759) Hypothyroidism (acquired) (E03.9) Active confirmed Problem Vitamin D deficiency (71219334) Vitamin D deficiency (E55.9) Active confirmed Problem Type II diabetes mellitus without complication (499144583) Diabetes mellitus type 2, noninsulin dependent (E11.9) Active confirmed Problem Neuropathy (009543929) Neuropathy (G62.9) Active confirmed Problem Essential hypertension (52597860) Essential hypertension (I10) Active confirmed Problem Seasonal allergy (379659960) Seasonal allergies (J30.2) Active confirmed Problem Body mass index 30.00 to 34.99 (917457099383973) BMI 31.0-31.9,adult (Z68.31) Active confirmed Problem Chronic pain (69644993) Other chronic pain (G89.29) Active confirmed Problem Nephrolithiasis (84323928) Nephrolithiasis (N20.0) Active confirmed Problem Obesity (605366367) Obesity (BMI 30-39.9) (E66.9) Active confirmed Problem Obese class II (187130579958208) BMI 37.0-37.9, adult (Z68.37) Active confirmed Problem Degeneration of lumbosacral intervertebral disc (89203879) DDD (degenerative disc disease), lumbosacral (M51.37) Active confirmed Problem Obstructive sleep apnea syndrome (75187983) TARIQ (obstructive sleep apnea) (G47.33) Active confirmed Problem Kidney stone (02497275) Kidney stone (N20.0) Active confirmed Problem Rheumatoid arthritis (17178353) Rheumatoid arthritis of left hand without organ or system involvement with positive rheumatoid factor (M05.742) Active confirmed Problem Disorder of immune function (655840014) Immunosuppressed status (D89.9) Active confirmed Problem Degeneration of thoracic intervertebral disc (40267734) DDD (degenerative disc disease), thoracic (M51.34) Active confirmed Problem Major depression single episode, in partial remission (64553448) Major depressive disorder with single episode, 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) Active confirmed Problem Serum vitamin B12 low (601996837) Low vitamin B12 level (E53.8) Active confirmed Problem Osteoarthritis (194673650) Chronic inflammatory arthritis (M19.90) Active confirmed Problem Food allergy (178542506) Allergy to alpha-gal (Z91.018) Active confirmed Problem COVID-19 (242893481) COVID-19 (U07.1) Active confirmed Problem 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) Active confirmed Problem Loss of taste (56830003) Loss of taste (R43.2) Active confirmed Vital Signs Heart Rate 78 /min 03/30/2025 Temperature 98.4 degrees Fahrenheit 03/30/2025 Blood pressure diastolic 62 mm Hg 03/30/2025 Height 62 in 03/30/2025 Blood pressure systolic 98 mm Hg 03/30/2025 Weight 122 lbs 03/30/2025 BMI 22.31 kg/m2 03/30/2025 Encounters Encounter Location Date Provider Diagnosis [facility] [address] [place] [address] 01/02/2025 Provider Migration Right acute otitis media H66.91 and Subacute cough R05.2 [facility] [address] [address] 08/03/2024 Sherri McNees Diabetes mellitus ty pe 2, noninsulin dependent E11.9 ; Routine medical exam Z00.00 ; Rheumatoid arthritis with rheumatoid factor of right hand without organ or systems involvement M05.741 ; Hypothyroidism (acquired) E03.9 ; Low vitamin B12 level E53.8 ; Mixed hyperlipidemia E78.2 ; Vitamin D deficiency E55.9 ; Depression with anxiety F41.8 ; BMI 25.0-25.9,adult Z68.25 ; Degeneration of intervertebral disc of lumbar region with discogenic back pain and lower extremity pain M51.362 and Encounter for immunization Z23 [facility] [address] [address] 11/04/2024 Cathy Bright Subacute cough R05.2 ; Right acute otitis media H66.91 and Non-recurrent acute serous otitis media of left ear H65.02 [facility] [address] [address] 01/15/2025 Sherri McNees Diabetes mellitus ty pe 2, noninsulin dependent E11.9 ; Welcome to Medicare preventive visit Z00.00 ; Rheumatoid arthritis with rheumatoid factor of right hand without organ or systems involvement M05.741 ; Hypothyroidism (acquired) E03.9 ; Low vitamin B12 level E53.8 ; Mixed hyperlipidemia E78.2 ; Vitamin D deficiency E55.9 ; Depression with anxiety F41.8 ; Degeneration of intervertebral disc of lumbar region with discogenic back pain and lower extremity pain M51.362 ; BMI 24.0-24.9, adult Z68.24 ; DDD (degenerative disc disease), thoracic M51.34 and Visit for screening mammogram Z12.31 [facility] [address] [address] 03/30/2025 Lamberto Daly Diabetes mellitus ty pe 2, noninsulin dependent E11.9 ; Chronic inflammatory arthritis M19.90 ; Trochanteric bursitis, left hip M70.62 and Urinary frequency R35.0 [facility] [address] [place] [address] 05/28/2024 Lamberto Besson [facility] [address] [place] [address] 06/05/2024 Sherri McNees [facility] [address] [place] [address] 06/05/2024 Sherri McNees [facility] [address] [place] [address] 06/05/2024 Sherri McNees [facility] [address] [place] [address] 06/17/2024 Sherri McNees [facility] [address] [facility] [address] [place] [address], [place] [address] 06/30/2024 Lamberto Besson [facility] [address] [facility] [address] [place] [address] 07/30/2024 Lamberto Besson [facility] [address] [facility] [address] [place] [address] 08/04/2024 Sherri McNees [facility] [address] [place] [address] 08/12/2024 Sherri McNees [facility] [address] [facility] [address] [place] [address] 08/25/2024 Lamberto Besson [facility] [address] [facility] [address] [place] [address] 09/18/2024 Sherri McNees [facility] [address] [place] [address] 09/28/2024 Lamberto Besson [facility] [address] [place] [address] 10/02/2024 Sherri McNees [facility] [address] [facility] [address] [place] [address] 10/28/2024 Lamberto Besson [facility] [address] [facility] [address] [place] [address] 10/29/2024 Sherri McNees [facility] [address] [facility] [address] [place] [address] 12/01/2024 Lamberto Besson [facility] [address] [place] [address] 12/01/2024 Lamberto Besson [facility] [address] [place] [address] 12/29/2024 Lamberto Besson [facility] [address] [place] [id number] 12/29/2024 Sherri McNees [facility] [address] [place] [address] 01/15/2025 Sherri McNees [facility] [address] [place] [address] 01/18/2025 Sherri McNees DDD (degenerative di sc disease), thoracic M51.34 [facility] [address] [place] [address] 01/29/2025 Lamberto Besson [facility] [address] [place] [address] 02/01/2025 Sherri McNees [facility] [address] [place] [address] 02/02/2025 Lamberto Besson [facility] [address] [place] [address] 02/03/2025 Cathy Mejiaence [facility] [address] [place] [address] 02/09/2025 Lamberto Besson [facility] [address] [place] [address] 02/17/2025 Lamberto Besson [facility] [address] [place] [address] 02/24/2025 Lamberto Besson [facility] [address] [place] [address] 03/01/2025 Lamberto Besson [facility] [address] [place] [address] 03/16/2025 Lamberto Besson [facility] [address] [place] [address] 04/05/2025 Lamberto Besson [facility] [address] [place] [address] 04/06/2025 Lamberto Besson [facility] [address] [address] 04/21/2025 Lamberto Daly [address] [address] 05/03/2025 Sherri Roche Screening mammogram for breast cancer Z12.[address] [address] 05/06/2025 Lamberto Daly Assessments Encounter Date Diagnosis (ICD Code) Assessment Notes Treatment Notes Treatment Clinical Notes Section Notes 08/03/2024 Diabetes mellitus type 2, noninsulin dependent (ICD-10 - E11.9) Doing well on GLP-1. Recommend continued diabetic diet, yearly eye exams, supportive footwear. Will check A1c and treat as indicated. Recommend to monitor weight weekly, no further weight loss recommended. If weight continues to decline will consider decreasing dose. Good control on FSBS 08/03/2024 Routine medical exam (ICD-10 - Z00.00) Mammogram UTD. No previous Colonoscopy, cologuard negative and UTD Immunizations UTD with flu given today Routine labs drawn today 01/02/2025 Right acute otitis media (ICD-10 - H66.91) 01/02/2025 Subacute cough (ICD-10 - R05.2) 01/15/2025 Diabetes mellitus type 2, noninsulin dependent (ICD-10 - E11.9) Doing well on GLP-1. Recommend continued diabetic diet, yearly eye exams, supportive footwear. Will check A1c and treat as indicated. Recommend to monitor weight weekly, no further weight loss recommended. If weight continues to decline will consider decreasing dose. Good control on FSBS 11/04/2024 Subacute cough (ICD-10 - R05.2) 11/04/2024 Right acute otitis media (ICD-10 - H66.91) 01/15/2025 Welcome to Medicare preventive visit (ICD-10 - Z00.00) Mammogram 01/21 normal, due to repeat, will arrange Cologuard UTD and negative Hysterectomy BMI is normal Fasting labs drawn today Not a smoker 01/18/2025 DDD (degenerative disc disease), thoracic (ICD-10 - M51.34) 03/30/2025 Diabetes mellitus type 2, noninsulin dependent [...] we will stop the other NSAIDs. r 05/03/2025 Screening mammogram for breast cancer (ICD-10 - Z12.31) re 03/30/2025 Trochanteric bursitis, left hip (ICD-10 - M70.62) r 11/04/2024 Non-recurrent acute serous otitis media of left ear (ICD-10 - H65.02) 08/03/2024 Rheumatoid arthritis with rheumatoid factor of right hand without organ or systems involvement (ICD-10 - M05.741) At baseline. No signs of active flare today on exam. 01/15/2025 Rheumatoid arthritis with rheumatoid factor of right hand without organ or systems involvement (ICD-10 - M05.741) At baseline. No signs of active flare today on exam. 01/15/2025 Hypothyroidism (acquired) (ICD-10 - E03.9) Stable on synthroid 08/03/2024 Hypothyroidism (acquired) (ICD-10 - E03.9) Stable on synthroid 03/30/2025 Urinary frequency (ICD-10 - R35.0) r 08/03/2024 Low vitamin B12 level (ICD-10 - E53.8) Continue b12 replacement, will check b12 and cbc 01/15/2025 Low vitamin B12 level (ICD-10 - E53.8) Continue b12 replacement, will check b12 and cbc 01/15/2025 Mixed hyperlipidemia (ICD-10 - E78.2) Tolerating statin well. No myalgias. Fasting lipid panel drawn today 08/03/2024 Mixed hyperlipidemia (ICD-10 - E78.2) Tolerating statin well. Fasting lipid panel drawn today 08/03/2024 Vitamin D deficiency (ICD-10 - E55.9) Continue vit d replacement 01/15/2025 Vitamin D deficiency (ICD-10 - E55.9) Continue vit d , will check vit d level today 01/15/2025 Depression with anxiety (ICD-10 - F41.8) Well controlled. Discussed rationale for pharmacotherapy, and discussed MOA of med. Discussed time course of expected improvements, and discussed side effect profile and need for urgent evaluation if agitation or worsening mood occurs. 08/03/2024 Depression with anxiety (ICD-10 - F41.8) Well controlled. Discussed rationale for pharmacotherapy, and discussed MOA of med. Discussed time course of expected improvements, and discussed side effect profile and need for urgent evaluation if agitation or worsening mood occurs. 08/03/2024 BMI 25.0-25.9,adult (ICD-10 - Z68.25) 01/15/2025 Degeneration of intervertebral disc of lumbar region with discogenic back pain and lower extremity pain (ICD-10 - M51.362) At baseline. CSA uanpdated and placed on chart. all report reviewed and is appropriate - discussed ongoing use of controlled medication and safety associated with these medications 08/03/2024 Degeneration of intervertebral disc of lumbar region with discogenic back pain and lower extremity pain (ICD-10 - M51.362) At baseline CSA utd and on chart. all report reviewed and is appropriate - discussed ongoing use of controlled medication and safety associated with these medications 01/15/2025 BMI 24.0-24.9, adult (ICD-10 - Z68.24) BMI normal, will continue to montior 01/15/2025 DDD (degenerative disc disease), thoracic (ICD-10 - M51.34) Discussed supportive care with heat. Add methocarbamol prn. Discuss with Dr. Bueno if pain persists 08/03/2024 Encounter for immunization (ICD-10 - Z23) 01/15/2025 Visit for screening mammogram (ICD-10 - Z12.31) 08/03/2024 Other 01/15/2025 Other Plan Of Treatment Pending Test Test Name Order Date N-CBC 04/22/2009 N-CBC 10/13/2007 X ray : Chest 02/01/2015 N-Urine Culture and Sensitivity 06/17/20 11 N-Urine Culture and Sensitivity 05/27/20 09 N-Amylase 10/13/2007 Urinalysis 06/04/2023 Ultrasound : Pelvis, Transvaginal 2007 X ray : Knee, Left 06/23/2020 X ray : Hip, Left 06/23/2020 N-TSH (Thyroid Stimulating Hormone) 03/31 N-CMP 04/22/2009 N-Lipid Panel 04/22/2009 MRI : Head, With and Without Contrast Physical Therapy 12/19/2021 Physical Therapy 02/04/2023 Mammogram : Additional Views 12/03/2007 N-cmp 10/13/2007 Mammogram : Bilateral 05/03/2025 Mammogram : Bilateral 01/15/2025 Mammogram : Bilateral 10/01/2018 Mammogram : Bilateral 09/16/2018 H-CBC with AUTO DIFF 06/20/2017 H-VITAMIN B12 06/20/2017 H-CMP 06/20/2017 H-LIPID PANEL 06/20/2017 H-HGBA1C 06/20/2017 H-THYROID PANEL 2- (T3 Uptake, T4, Free Thyroxine Index, TSH) 06/20/2017 H-RHEUMATOID ARTHRITIS PROFILE 7 H-SED RATE 06/20/2017 C-CBC 09/18/2017 C-CBC 11/30/2019 C-Sed Rate (ESR) 09/18/2017 C-Sed Rate (ESR) 11/30/2019 C-CMP 04/25/2010 C-CMP 11/30/2019 C-CMP 10/27/2020 C-CMP 09/18/2017 C-CMP 05/25/2014 C-LIPID PANEL 04/25/2010 C-TSH 04/25/2010 C-TSH 11/30/2019 C-TSH 09/18/2017 C-JAQUELINE 05/15/2013 C-VITAMIN B12 04/25/2010 C-VITAMIN B12 09/18/2017 C-URINE CULTURE 08/28/2016 C-URINE CULTURE 02/05/2014 C-HGBA1C 05/25/2014 C-HGBA1C 11/30/2019 Rapid Flu, A 09/09/2013 Rapid Flu, B 09/09/2013 H-DIARRHEA PANEL PCR 04/23/2016 M-Complete Blood Count Man Dif M-Comprehensive Metabolic Panel 04/13/20 M-Comprehensive Metabolic Panel 08/15/20 M-Hemoglobin A1C 04/13/2021 M-Hemoglobin A1C 08/14/2021 K-[id number]-[id number] Protein 09/07/2022 M-Thyroid Stimulating Hormone 04/13/2021 M-Vitamin B12 09/07/2022 CBC With Platelet And Differential 03/13 Comprehensive Metabolic Panel (CMP) 02/28 Hemoglobin A1C 03/13/2022 Lipid Panel 03/13/2022 TSH 03/13/2022 Future Test Test Name Order Date C-CBC 08/08/2011 C-CMP 08/08/2011 C-LIPID PANEL 08/08/2011 C-TSH 08/08/2011 C-VITAMIN B12 08/08/2011 C-RA FACTOR 08/08/2011 Insurance Providers Payer Name Payer Address Payer Phone Subscriber Number Group Number Insured Name Patient Relationship to Insured Coverage Start Date Coverage End Date [employer] [address] [address] [place] [address] [phone] [id number] Anu Kirkpatrick Self - patient is the insured Medications Administered Medication Instructions Date of Administration Dosage Notes Ceftriaxone 500 10/27/2013 500 mg Ceftriaxone 500 02/02/2015 500 Ceftriaxone 500 11/05/2016 500 mg Cyanocobalamin/B-12 Pt's Own Medication 12/31/2017 1 mL Dexamethasone 4mg Injection 05/18/2022 4 mg Diphenhydramine 09/06/2016 25 mg Kenalog 40mg 06/11/2017 40 mg Kenalog 40mg 08/08/2017 40 mg Kenalog 40mg 02/17/2018 40 mg Regen-Cov 06/21/2021 2.5 mL Right upper ar m Regen-Cov 06/21/2021 2.5 mL left upper arm Regen-Cov 06/21/2021 2.5 mL left thigh Regen-Cov 06/21/2021 2.5 mL right thigh Triamcinolone Acetonide 40mg Injection 09/24/2018 1 mL Triamcinolone Acetonide 40mg Injection 08/13/2019 1 mL Kenalog 10/27/2013 1 Kenalog 01/26/2015 1 mL Kenalog 03/08/2015 1 Kenalog 01/03/2016 1 mL Kenalog 09/06/2016 1 Promethazine HCL 09/09/2013 Medical (General) History Medical History History ICD Code hypothyroidism hyperlipidemia delivery 1993 PAH 2000 Exploratory Lap-removal of adhesions, BS O 2008 Cystoscopy 1993, 2005 Lithotripsy 2002 Fracture right elbow 2006 Left ovary removed 2007 Diabetes Pyelonephritis Nephrolithiasis Lupus Normal mamm 09/17 and 11/2021 Negative Cologuard 01/2024 Surgical History Surgery Date(Month/Year) hysterectomy kidney stone x 5 abd. x 5 for oopherectomy Hospitalization History Reason Date(Month/Year)
--- OUTSIDE RECORDS SUMMARY | 2025-05-11 16:46 | XMS_ITS | Clinical Summary ---
Author Organization Healthcare Address [address] [place] [address] Care Team Providers Care Group Fitness Assistant Department Head Name Role Phone Lamberto Daly MD Primary Care Provider [phone] Encounters Date Type Department Care Team Description 03/09/2025 Telephone [facility] [address] [place] [address] None, None from Last 3 Months Family History Medical History Relation Name Comments Conversions - Other Mother idiopath ic thrombocytopenic purpura Rheum arthritis Mother Cardiac disorder Other 1 Diabetes Other 2 Hypertension Other 3 Relation Name Status Comments Mother Other 1 Other 2 Other 3 Social History Tobacco Use Types Packs/Day Years Used Date Smoking Tobacco: Never Alcohol Use Standard Drinks/Week Comments No 0 (1 standard drink = 0.6 oz pur e alcohol) Comments Unknown Sex and Gender Information Value Date Recorded Sex Assigned at Not on file Legal Sex Female 8:37 PM EDT Gender Identity Not on file Sexual Orientation Not on file Last Filed Vital Signs Vital Sign Reading Time Taken Comments Blood Pressure 151/77 11/29/2020 3:15 PM EST Pulse 85 11/29/2020 3:15 PM EST Temperature 36.8 C (98.3 F) 11/29/2020 3:15 PM EST Respiratory Rate - - Oxygen Saturation - - Inhaled Oxygen Concentration - - Weight 89.4 kg (197 lb 0.1 oz) 11/29/2020 3:15 P M EST Height 154.9 cm (5' 1 ) 11/29/2020 3:15 PM EST Body Mass Index 37.22 11/29/2020 3:15 PM EST Plan of Treatment Health Maintenance Due Date Last Done Comments [facility]-Depression Screening 1967 [facility]-/Child/Adol SDOH Screenings 1967 [facility]- SDOH Screenings 1985 [facility]-Adult SDOH Screenings 1985 [facility]-Hepatitis B Vaccines (1 of 3 - 19+ 3-dose series) 1986 [facility]-Pap Smear 1988 [facility]-Cervical Cancer Screening 1997 [facility]-HPV/Cotest 1997 CT Colonography 2012 Colonoscopy 2012 FIT-DNA 2012 FIT 2012 FOBT 2012 Sigmoidoscopy 2012 [facility]-Colorectal Cancer Screening 2012 [facility]-Pneumococcal Vaccine: 50 + Years (1 of 1 - PCV) 2017 [facility]-Zoster Vaccines (1 of 2) 2017 [id number] Vaccine (1 - season) 2024 [facility]-Influenza Vaccine (#1) 05/31/202508/18, 07/25/2020 [facility]-DTaP,Tdap,and Td Vaccine s (3 - Td or Tdap) 12/28/2031 12/27/2021, 03/28/2017 HPV Vaccines Aged Out No longer eligi ble based on patient's age to complete this topic [facility]-HIB Vaccines Aged Out No longer e ligible based on patient's age to complete this topic [facility]-Hepatitis A Vaccines Aged Out No longer eligible based on patient's age to complete this topic [facility]-IPV Vaccines Aged Out No longer e ligible based on patient's age to complete this topic [facility]-Rotavirus Vaccines Aged Out No lo nger eligible based on patient's age to complete this topic Care Teams Group Fitness Assistant Department Head Relationship Specialty Start Date End Date Lamberto Daly MD [address] [place] [address] PCP - General 02/10/21
--- OUTSIDE RECORDS SUMMARY | 2025-05-11 16:46 | XMS_ITS | Encounter Summary ---
Author Organization Healthcare Address [address] [place] [address] Care Team Providers Care Computer Salesperson Retail Name Role Phone Lamberto Daly MD Primary Care Provider [phone] Encounter Details Date Type Department Care Team (Late st Contact Info) Description 03/09/2025 Telephone [facility] [address] [place] [address] None, None [address] [place], [place] [id number] Social History Tobacco Use Types Packs/Day Years Used Date Smoking Tobacco: Never Alcohol Use Standard Drinks/Week Comments No 0 (1 standard drink = 0.6 oz pur e alcohol) Comments Unknown Sex and Gender Information Value Date Recorded Sex Assigned at Not on file Legal Sex Female 8:37 PM EDT Gender Identity Not on file Sexual Orientation Not on file documented as of this encounter Miscellaneous Notes * Telephone Encounter - Zainab Felix - 03/09/2025 10:56 AM EDT Triage Note 03/09/2025 10:56 AM Scheduled 03/[address] CASILLAS * Telephone Encounter - Chantelle Bailon - 03/09/2025 10:26 AM EDT Clinical Concern/Question Reason for Call: STAT Shingles in Right Eye REF- Lamberto Daly P-[phone] [phone] Faxing Recs Please call PT to Schedule Best contact number: [phone] (home) Optimal time of day to reach caller: ANYTIME Additional comments/information from caller: None Note: Please do not reply to this message. Follow-up communication and further actions as a result of this message need to be communicated with the patient directly, if the patient is not active onMyChart. If the patient is active on MyChart, they will receive notification of the communication/outcome via MyChart. documented in this encounter Plan of Treatment Not on file documented as of this encounter Visit Diagnoses Not on filedocumented in this encounter Care Teams Computer Salesperson Retail Relationship Specialty Start Date End Date Lamberto Daly MD [address] [place] [address] PCP - General 02/10/21 documented as of this encounter
--- OUTSIDE RECORDS SUMMARY | 2025-05-11 16:46 | XMS_ITS | Encounter Summary ---
Author Organization Healthcare Address [address] [place] [address] Care Team Providers Care Division Officer Weapons Department Name Role Phone Lamberto Daly MD Primary Care Provider [phone] Encounter Details Date Type Department Care Team (Late st Contact Info) Description 02/05/2023 Community [facility] [address] [place] [address] Angel Brightah Johnson, SENIOR SYSTEMS DEVELOPER [address] [place] [address] Foot drop, right (Primary Dx) Social History Tobacco Use Types Packs/Day Years [...] on file documented as of this encounter Plan of Treatment Not on file documented as of this encounter Visit Diagnoses Diagnosis Foot drop, right- Primary Other acquired deformity of ankle and foot documented in this encounter Care Teams Division Officer Weapons Department Relationship Specialty Start Date End Date Lamberto Daly MD [address] [place] [address] PCP - General 02/10/21 documented as of this encounter
--- NOTE | 2025-05-11 16:50 | MM_ITS ---
PROCEDURE INFORMATION: Exam: MG Bilateral Screening 3D Mammography Exam date and time: 05/11/2025 4:51 PM Age: 60 years old Clinical indication: Screening mammogram TECHNIQUE: Imaging protocol: Bilateral Screening tomosynthesis and 2D mammography including computer-aided detection (CAD) when performed. COMPARISON: 1. MG MM DIG SCREENING MAMM BI W/CAD 01/15/2024 7:57 AM 2. MG MM DIG SCREENING MAMM BI W/CAD 12/22/2021 7:58 AM 3. MG MM DIG SCREENING MAMM BI W/CAD 09/22/2019 8:28 AM 4. MG DMSB DIGITAL MAMM-SCREEN BILATERAL 02/14/2012 4:41 PM FINDINGS: MAMMOGRAPHY: Breast composition: There are scattered areas of fibroglandular density. Mass: None. Architectural distortion: No new or suspicious architectural distortion. Calcifications: No new or suspicious calcifications are present Asymmetric density: No new or suspicious asymmetric density is present Skin thickening: None. Axillary adenopathy: None. IMPRESSION: No mammographic evidence of malignancy. Recommend annual screening mammography unless otherwise clinically indicated. ASSESSMENT: BI-RADS category 1: Negative.
== END 2025-05-11 23:59 | disposition home or self-care (01) ==
LOC: RAD 16:44
PROVIDERS: PCP Internal Medicine Adolescent Medicine; Visit Provider Nurse Practitioner Family
DX: Z12.31 Encounter for screening mammogram for malignant neoplasm of breast (principal); R92.323 Mammographic fibroglandular density, bilateral breasts
CPT/HCPCS: 77063; 77067